=== PATIENT | female | born 1970 | race African-American/Black ===

== ENCOUNTER 2021-08-19 10:25 | Outpatient (REF) | payer OTHER, SELFPAY ==
[2021-08-19 13:12] LABS: Basophils Percent Auto 0.4 % (0-2); Eosinophils Absolute Auto 0.1 X10*3/uL (0.0-0.4); Eosinophils Percent Auto 1.1 % (0-4); Hematocrit 42.3 % (37.0-47.0); Hemoglobin 13.1 g/dl (12.0-16.0); Imm Gran Abs Auto 0.01 X10*3/uL (0.00-0.03); Imm Gran Pct Auto 0.1 % (0.0-0.4); Lymphocytes Absolute Auto 2.4 X10*3/uL (1.2-4.9); Lymphocytes Percent Auto 34.4 % (20-40); MANUAL DIFF FLAG NO; Mean Corpuscular Hemoglobin 25.9 pg (27.0-33.0); Mean Corpuscular Volume 83.6 fL (80.0-98.0); Mean Platelet Volume 10.4 fL (9.4-12.3); Monocytes Absolute Auto 0.8 X10*3/uL (0.1-1.2); Monocytes Percent Auto 10.9 % (2-11); Neutrophils Absolute Auto 3.7 x10*3/uL (2.0-8.3); Neutrophils Percent Auto 53.1 % (45-73); Platelet Count 366 X10*3/uL (160-400); Red Blood Count 5.06 X10*6/uL (4.20-5.50); Red Cell Distribution Width 19.8 % (11.0-16.0)
[2021-08-19 13:43] LABS: Estimated Average Glucose 117 mg/dL; Hemoglobin A1c % 5.7 %
[2021-08-19 13:45] LABS: Alanine Aminotransferase 29 U/L (0-31); Albumin Level 4.2 g/dL (3.5-5.0); Alkaline Phosphatase 195 U/L (39-117); Anion Gap 14 (12-20); Aspartate Amino Transferase 23 U/L (5-31); Bilirubin Total 0.7 mg/dL (0.0-1.0); Blood Urea Nitrogen 13 mg/dL (9-16); C Reactive Protein 1.42 mg/dL (< or = 0.50); Calcium 9.8 mg/dL (8.4-10.2); Carbon Dioxide 25 mmol/L (22-29); Chloride 108 mmol/L (96-108); Cholesterol 150 mg/dL; Estimated Glomerular Filt Rate > 60; Glucose Random 94 mg/dL (60-115); HDL Cholesterol 45 mg/dL; Iron 31 mcg/dL (30-160); LDL Cholesterol Calculated 85 mg/dl; Percent Iron Saturation 6 % (15-50); Potassium 4.6 mmol/L (3.3-5.1); Sodium 142 mmol/L (135-145); Total Iron Binding Capacity 519 mcg/dL (228-428); Triglycerides 101 mg/dL; Unsaturated Iron Binding 488 ug/dL
[2021-08-19 14:08] LABS: TSH reflex Free T4 1.09 uIU/mL (0.32-4.0); Vitamin D 25-OH Total 10.6 ng/mL (>30)
[2021-08-19 14:18] LABS: Folate 15.6 ng/mL (> or = 4.0); Vitamin B12 312 pg/mL (200-900)
[2021-08-19 15:03] LABS: Ferritin 32 ng/mL (10-250); Insulin 9 uU/mL (2-29)
[2021-08-20 13:07] LABS: Calcium (PTHI) 9.5 mg/dL (8.6-10.4); PTHI 66 pg/mL (14-64)
[2021-08-21 13:30] LABS: Zinc 85 mcg/dL (60-130)
[2021-08-24 12:36] LABS: Vitamin A 35 mcg/dL (38-98)
[2021-08-25 16:01] LABS: Vitamin B1 15 nmol/L (8-30)
== END 2021-08-19 10:26 | disposition home or self-care (01) ==
LOC: HO.LAB 10:25
PROVIDERS: PCP Internal Medicine; Referring Provider Internal Medicine; Visit Provider Physician Assistant
DX: E66.01 Morbid (severe) obesity due to excess calories (principal); F17.210 Nicotine dependence, cigarettes, uncomplicated; G47.33 Obstructive sleep apnea (adult) (pediatric); E03.9 Hypothyroidism, unspecified; J43.9 Emphysema, unspecified; J45.909 Unspecified asthma, uncomplicated; E11.9 Type 2 diabetes mellitus without complications; F41.9 Anxiety disorder, unspecified; F32.A Depression, unspecified; I95.9 Hypotension, unspecified; Z71.3 Dietary counseling and surveillance; Z79.899 Other long term (current) drug therapy; Z98.84 Bariatric surgery status
CPT/HCPCS: 36415; 80053; 80061; 82306; 82607; 82728; 82746; 83036; 83525; 83540; 83970; 84425; 84443; 84590; 84630; 85025; 86140; 99202

== ENCOUNTER 2021-09-23 10:08 | Outpatient (REF) | payer OTHER, SELFPAY ==
[2021-09-25 15:41] LABS: H Pylori Breath Test Negative (Negative)
== END 2021-09-23 10:09 | disposition home or self-care (01) ==
LOC: HO.LNP 10:08
PROVIDERS: PCP Internal Medicine; Referring Provider Internal Medicine; Visit Provider Physician Assistant
DX: E66.01 Morbid (severe) obesity due to excess calories (principal); Z68.41 Body mass index [BMI] 40.0-44.9, adult; F17.210 Nicotine dependence, cigarettes, uncomplicated; Z98.84 Bariatric surgery status; Z11.0 Encounter for screening for intestinal infectious diseases
CPT/HCPCS: 83013; 99211; 99212

== ENCOUNTER → 2021-10-05 08:06 | Outpatient (BNVA) | payer OTHER, SELFPAY | PROVIDERS: PCP Internal Medicine; Visit Provider Dietitian, Registered | DX: E66.01 Morbid (severe) obesity due to excess calories (principal); E11.9 Type 2 diabetes mellitus without complications | CPT/HCPCS: 97802 ==

== ENCOUNTER → 2021-10-16 08:14 | Outpatient (BNVA) | payer OTHER, SELFPAY | PROVIDERS: PCP Internal Medicine; Visit Provider Physician Assistant | DX: Z98.84 Bariatric surgery status (principal); Z01.818 Encounter for other preprocedural examination ==

== ENCOUNTER → 2021-10-21 08:06 | Outpatient (BNVA) | payer OTHER, SELFPAY | PROVIDERS: PCP Internal Medicine; Visit Provider Physician Assistant | DX: Z13.89 Encounter for screening for other disorder (principal) ==

== ENCOUNTER → 2021-11-02 08:18 | Outpatient (BNVA) | payer OTHER, SELFPAY | PROVIDERS: PCP Internal Medicine; Referring Provider Physician Assistant; Visit Provider Dietitian, Registered | DX: E66.9 Obesity, unspecified (principal) | CPT/HCPCS: 97803 ==

== ENCOUNTER → 2022-02-04 10:00 | Outpatient (BNVA) | payer OTHER, SELFPAY | PROVIDERS: PCP Internal Medicine; Visit Provider Physician Assistant | DX: E66.01 Morbid (severe) obesity due to excess calories (principal); Z98.84 Bariatric surgery status; J44.9 Chronic obstructive pulmonary disease, unspecified; F17.210 Nicotine dependence, cigarettes, uncomplicated | CPT/HCPCS: Q3014 ==

== ENCOUNTER 2022-06-10 08:36 | Outpatient (REF) | payer OTHER, SELFPAY ==
--- NOTE | ~2022-06-10 | XR_ITS ---
EXAMINATION: XR CHEST CLINICAL INFORMATION: Bariatric surgery COMPARISON: None TECHNIQUE: 2 views of the chest were obtained. FINDINGS: The cardiac and mediastinal contours are normal. The lungs are clear. There is no pleural effusion or pneumothorax for mild degenerative changes of the thoracic spine. There is a spinal stimulator in the thoracic spinal canal. XR/XR chest 2V IMPRESSION: No evidence for acute disease in the chest.
--- NOTE | 2022-06-10 08:42 | ECG_ITS ---
Test Reason : bariatric surg Blood Pressure : / mmHG Vent. Rate : 077 BPM Atrial Rate : 077 BPM P-R Int : 160 ms QRS Dur : 082 ms QT Int : 408 ms P-R-T Axes : 077 023 032 degrees QTc Int : 461 ms Normal sinus rhythm RSR' or QR pattern in V1 suggests right ventricular conduction delay Otherwise normal ECG No previous ECGs available Referred By: Erica Waite Electronically Signed By:HERBERT ALFARO MD
== END 2022-06-10 08:37 | disposition home or self-care (01) ==
LOC: HO.XRAY 08:36
PROVIDERS: PCP Internal Medicine; Visit Provider Physician Assistant
DX: Z98.84 Bariatric surgery status (principal); Z01.818 Encounter for other preprocedural examination
CPT/HCPCS: 71046; 93005

== ENCOUNTER → 2022-06-28 08:46 | Outpatient (REF) | payer OTHER, SELFPAY ==
--- NOTE | 2022-06-28 08:49 | CA_ITS ---
Acquisition Time: 2022-06-28 10:06:05 Total Exercise Time: 00:04:40 Test Indications: Pre Op, ABN EKG, SOB Medications: See H Protocol: ELBA Max HR: 134 BPM 79% of Pred: 169 BPM Max BP: 178/078 mmHG Max Work Load: 4.6 METS Exercise stress test with exercise 4 min 40 sec of Elba stage 1, achieving 79% MPHR, 4.6 METs, with moderate shortness of breath and fatigue with request to stop, without chest discomfort, with isolated PAC and PVC, with normotensive response to exercise, with nondiagnostic EKG for ischemia due to suboptimal heart rate however no ischemia noted at acheived workload. If further evaluation for ischemia is needed then recommend a pharmacological nuclear stress test. Test reviewed with Dr Veloz. Referred By: Erica Waite Overread By: SHAUN MIRANDA
== END ==
LOC: HO.CARD 08:46
PROVIDERS: Visit Provider Physician Assistant
DX: E03.9 Hypothyroidism, unspecified (principal); E11.9 Type 2 diabetes mellitus without complications; G47.33 Obstructive sleep apnea (adult) (pediatric); E66.01 Morbid (severe) obesity due to excess calories; J44.9 Chronic obstructive pulmonary disease, unspecified; R94.31 Abnormal electrocardiogram [ECG] [EKG]
CPT/HCPCS: 93017

== ENCOUNTER → 2022-08-06 10:41 | Outpatient (BNVA) | payer OTHER, SELFPAY | PROVIDERS: PCP Internal Medicine; Referring Provider Internal Medicine; Visit Provider Physician Assistant | DX: E66.01 Morbid (severe) obesity due to excess calories (principal); Z68.41 Body mass index [BMI] 40.0-44.9, adult; Z98.84 Bariatric surgery status | CPT/HCPCS: 99212 ==

== ENCOUNTER → 2022-09-08 12:46 | Outpatient (BNVA) | payer OTHER, SELFPAY | PROVIDERS: PCP Internal Medicine; Visit Provider Physician Assistant | DX: E66.01 Morbid (severe) obesity due to excess calories (principal); Z68.41 Body mass index [BMI] 40.0-44.9, adult; J44.9 Chronic obstructive pulmonary disease, unspecified; Z98.84 Bariatric surgery status; Z99.81 Dependence on supplemental oxygen | CPT/HCPCS: 99212; Q3014 ==

== ENCOUNTER → 2022-09-23 08:40 | Outpatient (BNVA) | payer OTHER, SELFPAY | PROVIDERS: PCP Internal Medicine; Visit Provider Dietitian, Registered | DX: E66.01 Morbid (severe) obesity due to excess calories (principal); Z68.41 Body mass index [BMI] 40.0-44.9, adult | CPT/HCPCS: 97803 ==

== ENCOUNTER 2022-10-06 09:01 | Outpatient (REF) | payer OTHER, SELFPAY ==
--- NOTE | ~2022-10-06 | US_ITS ---
EXAMINATION: US COMPLETE ABDOMEN WITH LIVER ELASTOGRAPHY CLINICAL INFORMATION: Obesity COMPARISON: None. TECHNIQUE: Real-time imaging of the abdominal viscera. Noninvasive ultrasound liver fibrosis assessment is performed using Katelyn ElastPQ point quantification shear wave elastography (2D-SWE) with a C5-2 MHz transducer. Multiple elastography samples are obtained. FINDINGS: PANCREAS: Normal. ABDOMINAL AORTA: The proximal and mid abdominal aorta are normal in caliber. Distal abdominal aorta is not well visualized due to bowel gas. INFERIOR VENA CAVA: Visualized portions are normal. LIVER: Liver echotexture is slightly increased. The liver is enlarged. The liver contour is normal. There is intrahepatic biliary duct dilatation. No focal liver lesion. The right lobe measures 20 cm in length. The left lobe measures 12 cm in length. Portal flow is normal/hepatopedal. The main portal vein is minimally enlarged measuring 1.7 cm. Shear wave liver elastography median stiffness is 1.28 m/s (reference: normal median stiffness is 1.3 m/s or less). IQR/median stiffness to assess sampling precision is 0.8 (reference: good quality data set is IQR/median stiffness of 0.15 or less). GALLBLADDER: Surgically removed COMMON BILE DUCT: Dilated measuring 1.8 cm in diameter. Left KIDNEY: 2 mm stone in the midpole. No hydronephrosis. . The kidney measures 11 cm in maximum dimension. Right KIDNEY: Normal. No hydronephrosis. No renal calculi or focal parenchymal lesions. The kidney measures 11 cm in maximum dimension. SPLEEN: Normal. The spleen measures 7.2 cm in maximum dimension. FREE FLUID: None. US/US abdomen comp w elastography IMPRESSION: 1. Impression: Enlarged echogenic liver. Intra and extrahepatic biliary duct dilatation. The common bile duct measures 1.8 cm. Post cholecystectomy. Biliary duct dilatation is greater than usually seen post cholecystectomy. Follow-up MR with MRCP should be considered. Small left renal stone. Limited visualization of the distal abdominal aorta. 2. Liver elastography: Normal. adequate liver sampling. REFERENCE: Society of Radiologists in Ultrasound Liver Stiffness Thresholds (2019): LIVER STIFFNESS THRESHOLDS: *Liver Stiffness equal or less than 1.3 m/s: High probability of being normal. *Liver Stiffness less than 1.7 m/s: In the absence of other known clinical signs, rules out compensated advanced chronic liver disease. *Liver Stiffness 1.7-2.1 m/s: Suggestive of compensated advanced chronic liver disease but need further test for confirmation. *Liver Stiffness over 2.1 m/s: Rules in compensated advanced chronic liver disease. *Liver Stiffness over 2.4 m/s: Suggestive of clinically significant portal hypertension. QUALITY OF DATA SET: *IQR/Median value equal or less than 0.15 implies a quality data set. *IQR/Median value over 0.15 implies a poor quality data set. SIGNIFICANT CHANGE FROM PRIOR EXAM: Significant change if liver stiffness measurement is 10% or greater from prior exam. OTHER CONSIDERATIONS: The stage of liver fibrosis may be overestimated in the setting of acute hepatitis, liver inflammation, elevated liver function tests, hepatic vascular congestion, obstructive cholestasis, non-fasting state, and infiltrative diseases such as amyloidosis and lymphoma. In some patients with NAFLD, the liver stiffness thresholds for compensated advanced chronic liver disease may be lower. In causes other than viral hepatitis and NAFLD, liver stiffness thresholds are not well established.
== END 2022-10-06 09:02 | disposition home or self-care (01) ==
LOC: HO.US 09:01
PROVIDERS: Visit Provider Physician Assistant
DX: Z01.818 Encounter for other preprocedural examination (principal); E66.9 Obesity, unspecified; K21.9 Gastro-esophageal reflux disease without esophagitis
CPT/HCPCS: 76705; 76981

== ENCOUNTER → 2022-10-14 12:00 | Outpatient (BNVA) | payer OTHER, SELFPAY | PROVIDERS: PCP Internal Medicine; Visit Provider Counselor Mental Health | DX: F43.10 Post-traumatic stress disorder, unspecified (principal); F50.81 Binge eating disorder; E66.01 Morbid (severe) obesity due to excess calories; Z98.84 Bariatric surgery status | CPT/HCPCS: 90791 ==

== ENCOUNTER → 2022-10-18 09:20 | Outpatient (BNVA) | payer OTHER, SELFPAY | PROVIDERS: PCP Internal Medicine; Referring Provider Internal Medicine; Visit Provider Physician Assistant | DX: E66.01 Morbid (severe) obesity due to excess calories (principal); Z68.41 Body mass index [BMI] 40.0-44.9, adult; Z98.84 Bariatric surgery status | CPT/HCPCS: 99212 ==

== ENCOUNTER 2022-11-01 09:48 | Outpatient (REF) | payer OTHER, SELFPAY ==
--- NOTE | ~2022-11-01 | FL_ITS ---
EXAMINATION: XR FLUOROSCOPY UPPER GI WITH AIR CLINICAL INFORMATION: Obesity COMPARISON: None TECHNIQUE: Routine upper GI air-contrast study was performed in upright and lying position. FINDINGS: Following oral administration of thick barium and effervescent granules there is normal probation bolus from the oral cavity through the pharynx, esophagus into stomach without any evidence of obstruction, narrowing or stricture. The course, caliber and peristalsis of stomach and the duodenal bulb is normal. On placing patient supine there is gastric bypass surgical changes with a small stomach. The gastroduodenal digital anastomosis is widely patent with spontaneous passage of contrast into the small bowel. There is moderate gastroesophageal reflux visualized. Incidental noted is made of posterior spinal epidural electrodes FLUOROSCOPY TIME: 2.4 minutes DOSE AREA PRODUCT: 56.807 uGy-m2 (microgray-meter squared) FL/FL upper GI w air IMPRESSION: Unremarkable upper GI air-contrast study.
== END 2022-11-01 09:49 | disposition home or self-care (01) ==
LOC: HO.XRAY 09:48
PROVIDERS: PCP Internal Medicine; Visit Provider Physician Assistant
DX: Z01.818 Encounter for other preprocedural examination (principal); E66.9 Obesity, unspecified; K21.9 Gastro-esophageal reflux disease without esophagitis
CPT/HCPCS: 74246

== ENCOUNTER → 2022-12-23 09:07 | Outpatient (BNVA) | payer OTHER, SELFPAY | PROVIDERS: PCP Internal Medicine; Visit Provider Physician Assistant | DX: E66.01 Morbid (severe) obesity due to excess calories (principal); E03.9 Hypothyroidism, unspecified; E11.9 Type 2 diabetes mellitus without complications; G47.33 Obstructive sleep apnea (adult) (pediatric); J44.9 Chronic obstructive pulmonary disease, unspecified; F17.210 Nicotine dependence, cigarettes, uncomplicated; Z98.84 Bariatric surgery status; Z68.41 Body mass index [BMI] 40.0-44.9, adult | CPT/HCPCS: 99212 ==

== ENCOUNTER → 2023-01-11 10:30 | Outpatient (BNVA) | payer OTHER, SELFPAY | PROVIDERS: PCP Internal Medicine; Visit Provider Counselor Mental Health ==

== ENCOUNTER → 2023-01-14 08:57 | Outpatient (BNVA) | payer OTHER, SELFPAY | PROVIDERS: PCP Internal Medicine; Referring Provider Internal Medicine; Visit Provider Physician Assistant | DX: E66.01 Morbid (severe) obesity due to excess calories (principal); G47.33 Obstructive sleep apnea (adult) (pediatric); J44.9 Chronic obstructive pulmonary disease, unspecified; J43.9 Emphysema, unspecified; E11.9 Type 2 diabetes mellitus without complications; F17.210 Nicotine dependence, cigarettes, uncomplicated; Z98.84 Bariatric surgery status; Z68.41 Body mass index [BMI] 40.0-44.9, adult | CPT/HCPCS: 99212 ==

== ENCOUNTER → 2023-02-15 08:58 | Outpatient (BNVA) | payer OTHER, SELFPAY | PROVIDERS: Visit Provider Dietitian, Registered | DX: E66.9 Obesity, unspecified (principal); Z71.3 Dietary counseling and surveillance | CPT/HCPCS: 97803 ==

== ENCOUNTER 2023-03-01 09:54 | Outpatient (AMB) | payer OTHER, SELFPAY ==
--- NOTE | 2023-03-01 10:06 | MHC.OFFVISWM ---
Intake VS Expanded 03/01/23 10:08 Height 5 ft 3 in Weight 218 lb BMI 38.6 BP 104/56 L Blood Pressure Location Rt brachial Blood Pressure Position Sitting Pulse 80 Pulse Source Pulse Oximeter Temp 97.3 F Temperature Source Temporal Artery Scan Pulse Oximetry 95 Oxygen Delivery Method Room Air Body Fat 103.6 Body Fat Percentage 47.6 Free Fat Mass 114.2 Muscle Mass 108.4 Visceral Mass 14.0 Water Mass 81.4 BMR 1,619 Intake Visit Reasons: (OV) F/U SWL Allergies NSAIDS (Non-Steroidal Anti-Inflamma Adverse Reaction (Severe, Verified 03/01/23 10:09) intestinal upset Medication List - Last Reconciled 03/01/23 by Erica Waite PA-C albuterol sulfate 90 mcg/actuation 2 puffs inhalation Q4-6H PRN apixaban (Eliquis) 2.5 mg PO BID doxepin 150 mg PO BEDTIME food supplemt, lactose-reduced (Ensure High Protein oral liquid) 1 ea PO TID hydrochlorothiazide 12.5 mg PO DAILY hydrocortisone 10 mg PO TID hydroxyzine HCl 100 mg PO TID levocetirizine 5 mg PO DAILY levothyroxine 50 mcg PO DAILY nicotine (Nicoderm CQ) 1 patch transdermal DAILY olanzapine 10 mg PO BID Oxygen Home Use As directed roflumilast (Daliresp) 500 mcg PO DAILY semaglutide (Ozempic) 0.25 mg subcut QWEEK tizanidine 2 mg PO TID PRN zolpidem (Ambien) 10 mg PO BEDTIME PRN HPI HPI Comments History of Present Illness Details SWL follow up, [employer] appt August 2021 at 235.8 lbs. Last seen on 01/14/23. TBWL so far is 17.8 lbs or 7.5%. Had dental work done on February 17 and can not eat solids now, has follow up with dentist on March 10. Will be getting implants. pre -operative work up completed. Meal plan now - 3 shakes and 2 yougrts per day. Exercise - 3d/week - pulmonary rehab. 2d/wk - does [employer] or LS 2 mile videos. Has been feeling dizzy lately, low BP today Tobacco - no cigarettes for last 2 days [facility] Medical History (Updated 05/04/23 @ 09:54 by Erica Waite PA-C) Sudden adrenal gland insufficiency Surgical History (Updated 03/01/23 @ 10:11 by ALESSIO Munson) History of dental surgery Hx of arthroscopic knee surgery Hx of colonoscopy Hx of endoscopy Hx of gastric bypass Hx of oral surgery Hx of spinal fusion Hx of spinal surgery Hx of tonsillectomy Family History Mother Cancer Anemia Dumping syndrome Father No problems noted. Sister Cancer Daughter Morbid obesity Chronic mental illness Daughter Chronic mental illness Daughter Chronic mental illness Daughter Chronic mental illness Son Chronic mental illness Social History Alcohol intake: former Patient Tobacco Use Status: Former Tobacco user Physical Exam Vital Signs: Last Vital Signs Temp 97.3 F 03/01/23 10:08 Pulse 80 03/01/23 10:08 BP 104/56 L 03/01/23 10:08 Pulse Ox 95 03/01/23 10:08 Oxygen Delivery Method Room Air 03/01/23 10:08 BMI result Body Mass Index 38.6 Assessment & Plan Assessment & Plan (1) Morbid obesity: Code(s): E66.01 - Morbid (severe) obesity due to excess calories Plan: 52 yo woman s/p KARINE has been in our program for 1.5 years. She is now losing weight effectively with 17.8 lbs or 7.5% TBWL. She will continue her diet of shakes and bars only due to dental work in progress. She will need to have this completely taken care of before revision bariatric surgery. She will need clearance from Dr Jin. Will continue her exercise plan as is also. I told her to stop her HCTZ due to dizziness and low BP, check BP at home and call her PCP this week. Hopefully, she will continue with smoking cessation. Next appt with me in mid March. Patient is obese and is not considered stable at this time. I spent 25 minutes in total with patient reviewing/updating records, examining the patient and counseling the patient on weight management as detailed above. (2) S/P gastric bypass: Comment: January 2006 at [facility] Code(s): Z98.84 - Bariatric surgery status (3) Obstructive sleep apnea: Code(s): G47.33 - Obstructive sleep apnea (adult) (pediatric) (4) Diabetes mellitus: Code(s): E11.9 - Type 2 diabetes mellitus without complications (5) Tobacco smoker, 1 pack of cigarettes or less per day: Code(s): F17.210 - Nicotine dependence, cigarettes, uncomplicated Coding Level of Care Code Est Pt Level 4 (77518) Diagnoses Morbid obesity E66.01 S/P gastric bypass Z98.84 Obstructive sleep apnea G47.33 Diabetes mellitus E11.9 Tobacco smoker, 1 pack of cigarettes or less per day F17.210
[2023-03-01 10:08] VITALS: BP 104/56; PULSE 80; TEMP 36.3; O2SAT 95; BMI 38.6
== END 2023-03-01 10:42 | disposition home or self-care (01) ==
PROVIDERS: Visit Provider Physician Assistant
DX: E66.01 Morbid (severe) obesity due to excess calories (principal); Z68.38 Body mass index [BMI] 38.0-38.9, adult; Z98.84 Bariatric surgery status; E11.9 Type 2 diabetes mellitus without complications; G47.33 Obstructive sleep apnea (adult) (pediatric); F17.210 Nicotine dependence, cigarettes, uncomplicated
CPT/HCPCS: 99214

== ENCOUNTER → 2023-03-01 09:54 | Outpatient (BNVA) | payer OTHER, SELFPAY | PROVIDERS: Visit Provider Physician Assistant | DX: E66.01 Morbid (severe) obesity due to excess calories (principal); Z68.38 Body mass index [BMI] 38.0-38.9, adult; G47.33 Obstructive sleep apnea (adult) (pediatric); E11.9 Type 2 diabetes mellitus without complications; F17.210 Nicotine dependence, cigarettes, uncomplicated; Z98.84 Bariatric surgery status | CPT/HCPCS: 99212 ==

== ENCOUNTER → 2023-04-22 10:53 | Outpatient (BNVA) | payer OTHER, SELFPAY | PROVIDERS: PCP Internal Medicine; Visit Provider Physician Assistant | DX: E66.01 Morbid (severe) obesity due to excess calories (principal); G47.33 Obstructive sleep apnea (adult) (pediatric); J44.9 Chronic obstructive pulmonary disease, unspecified; J43.9 Emphysema, unspecified; E03.9 Hypothyroidism, unspecified; E27.40 Unspecified adrenocortical insufficiency; F17.210 Nicotine dependence, cigarettes, uncomplicated; Z68.37 Body mass index [BMI] 37.0-37.9, adult; Z98.84 Bariatric surgery status | CPT/HCPCS: 99212 ==

== ENCOUNTER 2023-04-22 10:55 | Outpatient (AMB) | payer OTHER, SELFPAY ==
--- NOTE | 2023-04-22 11:12 | A.OFFVIS_ITS ---
Intake VS Expanded 04/22/23 11:27 Height 5 ft 3 in Weight 211 lb 3.2 oz BMI 37.4 BP 123/62 Blood Pressure Location Rt brachial Blood Pressure Position Sitting Pulse 70 Pulse Source Pulse Oximeter Temp 97.1 F Temperature Source Tympanic Pulse Oximetry 93 Oxygen Delivery Method Room Air Body Fat 93.6 Body Fat Percentage 44.4 Free Fat Mass 117.2 Muscle Mass 111.4 Visceral Mass 12.0 Water Mass 83.6 BMR 1,640 Intake Visit Reasons: (OV) F/U SWL Allergies NSAIDS (Non-Steroidal Anti-Inflamma Adverse Reaction (Severe, Verified 04/22/23 11:19) intestinal upset Medication List - Last Reconciled 04/22/23 by Erica Waite PA-C albuterol sulfate 90 mcg/actuation 2 puffs inhalation Q4-6H PRN doxepin 150 mg PO BEDTIME food supplemt, lactose-reduced (Ensure High Protein oral liquid) 1 ea PO TID hydrocortisone 10 mg PO TID hydroxyzine HCl 100 mg PO TID levocetirizine 5 mg PO DAILY levothyroxine 50 mcg PO DAILY lurasidone (Latuda) 3 mg PO DAILY nicotine (Nicoderm CQ) 1 patch transdermal DAILY olanzapine 10 mg PO BID Oxygen Home Use As directed roflumilast (Daliresp) 500 mcg PO DAILY semaglutide (Ozempic) 0.25 mg subcut QWEEK tizanidine 2 mg PO TID PRN HPI HPI Comments History of Present Illness Details SWL follow up for revision of previous GBP, [employer] appt August 2021 at 235.8 lbs. Last seen on 03/01/23. TBWL so far is 24.6lbs or 10.4%. Had dental work done on February 17 and can not eat solids now, Will be getting upper dentures with in a few weeks. Still on liquid diet with yogurt due to dental work. Stopped HCTZ with last appt due to symptomatic low BP. Pre -operative work up completed, needs review from Dr Melendez Exercise - gym 2d/ week, treadmill x 25 minutes, speed 1.9, no incline- noguera calories burned ?, bike for 10 minutes Meal plan - shakes 7am/1pm/5pm and yogurt at 3pm and 8 pm. Cigarettes - still 3 cig/day. Will start nicotine patch today - and today is her quit day! [facility] Medical History (Updated 04/22/23 @ 11:31 by Erica Waite PA-C) Sudden adrenal gland insufficiency Surgical History (Updated 03/01/23 @ 10:11 by ALESSIO Munson) History of dental surgery Hx of arthroscopic knee surgery Hx of colonoscopy Hx of endoscopy Hx of gastric bypass Hx of oral surgery Hx of spinal fusion Hx of spinal surgery Hx of tonsillectomy Family History Mother Cancer Anemia Dumping syndrome Father No problems noted. Sister Cancer Daughter Morbid obesity Chronic mental illness Daughter Chronic mental illness Daughter Chronic mental illness Daughter Chronic mental illness Son Chronic mental illness Social History Alcohol intake: former Patient Tobacco Use Status: Former Tobacco user Physical Exam Vital Signs: Last Vital Signs Temp 97.1 F 04/22/23 11:27 Pulse 70 04/22/23 11:27 BP 123/62 04/22/23 11:27 Pulse Ox 93 04/22/23 11:27 Oxygen Delivery Method Room Air 04/22/23 11:27 BMI result Body Mass Index 37.4 Assessment & Plan Assessment & Plan (1) Morbid obesity: Code(s): E66.01 - Morbid (severe) obesity due to excess calories Plan: Pt has now lost 24.6 lbs or 10.4% TBWL over past 1.5 years in preparation for revision of GBP. She will increase her exercise plan to treadmill and bike 3d/ this week, then 4 d/ week. Speed 2.5, incline 1-4 for 300 calories including bike. No change to meal plan. Will need confirmation of smoking cessation - urine continine will be ordered with next appt. Noa harrist now, me in 3 weeks. Will send information to Dr Jin for review. Patient is morbidly and is not considered stable at this time. I spent 30 minutes in total with patient reviewing/updating records, examining the patient and counseling the patient on weight management as detailed above. (2) S/P gastric bypass: Comment: January 2006 at [facility] Code(s): Z98.84 - Bariatric surgery status (3) Obstructive sleep apnea: Code(s): G47.33 - Obstructive sleep apnea (adult) (pediatric) (4) COPD (chronic obstructive pulmonary disease): Code(s): J44.9 - Chronic obstructive pulmonary disease, unspecified (5) Emphysema lung: Code(s): J43.9 - Emphysema, unspecified (6) Tobacco smoker, 1 pack of cigarettes or less per day: Code(s): F17.210 - Nicotine dependence, cigarettes, uncomplicated (7) Sudden adrenal gland insufficiency: Code(s): E27.40 - Unspecified adrenocortical insufficiency (8) Hypothyroid: Code(s): E03.9 - Hypothyroidism, unspecified Coding Level of Care Code Est Pt Level 4 (18635) Diagnoses Morbid obesity E66.01 S/P gastric bypass Z98.84 Obstructive sleep apnea G47.33 COPD (chronic obstructive pulmonary disease) J44.9 Emphysema lung J43.9 Tobacco smoker, 1 pack of cigarettes or less per day F17.210 Sudden adrenal gland insufficiency E27.40 Hypothyroid E03.9
[2023-04-22 11:27] VITALS: BP 123/62; PULSE 70; TEMP 36.2; O2SAT 93; BMI 37.4
== END 2023-04-22 11:49 | disposition home or self-care (01) ==
PROVIDERS: PCP Internal Medicine; Visit Provider Physician Assistant
DX: E66.01 Morbid (severe) obesity due to excess calories (principal); Z98.84 Bariatric surgery status; G47.33 Obstructive sleep apnea (adult) (pediatric); J44.9 Chronic obstructive pulmonary disease, unspecified; J43.9 Emphysema, unspecified; F17.210 Nicotine dependence, cigarettes, uncomplicated; E27.40 Unspecified adrenocortical insufficiency; E03.9 Hypothyroidism, unspecified
CPT/HCPCS: 99214

== ENCOUNTER 2023-05-11 08:06 | Outpatient (AMB) | payer OTHER, SELFPAY ==
--- NOTE | 2023-05-11 11:31 | MHC.OFFVISWM ---
Intake VS Expanded 05/11/23 13:27 Height 5 ft 3 in Weight 210 lb 3 oz BMI 37.2 Body Fat 66.8 Body Fat Percentage 31.8 Free Fat Mass 143.4 Visceral Mass 18 Water Mass 98.4 BMR 1,780 Intake Visit Reasons: TV Consult/Transfer Erica Allergies NSAIDS (Non-Steroidal Anti-Inflamma Adverse Reaction (Severe, Verified 05/11/23 11:31) intestinal upset Medication List - Last Reconciled 05/11/23 by Rodrigo Reyes MD albuterol sulfate 90 mcg/actuation 2 puffs inhalation Q4-6H PRN cholecalciferol (vitamin D3) 125 mcg PO DAILY doxepin 150 mg PO BEDTIME food supplemt, lactose-reduced (Ensure High Protein oral liquid) 1 ea PO TID hydrocortisone 10 mg PO TID hydroxyzine HCl 100 mg PO TID iron,carbonyl-vitamin C 65 mg iron- 125 mg (Vitron-C) 1 tab PO DAILY levocetirizine 5 mg PO DAILY levothyroxine 50 mcg PO DAILY lurasidone (Latuda) 3 mg PO DAILY mecobalamin (vitamin B12) 1,000 mcg sublingual DAILY nicotine (Nicoderm CQ) 1 patch transdermal DAILY olanzapine 10 mg PO BID Oxygen Home Use As directed roflumilast (Daliresp) 500 mcg PO DAILY semaglutide (Ozempic) 0.25 mg subcut QWEEK tizanidine 2 mg PO TID PRN vitamin A palmitate 10,000 units PO DAILY HPI TV Consult/Transfer Erica HPI Details Start time: 11.34am, End time: 12.34pm ?I spent 45 minutes speaking with the patient on the phone plus an additional 15 minutes reviewing and updating records for a total of 60 minutes HPI Comments History of Present Illness Details Overall weight loss: 25.5lbs, or 10.8% TBWL Is doing 3 Ensure HP protein shakes, 2 HP Arabic yogurt (15gr) Exercise: is doing Gym x4/wk, doing the bike for 300 calories or the treadmill for 300 calories PFSH Medical History (Updated 05/11/23 @ 11:44 by Rodrigo Reyes MD) DJD (degenerative joint disease) Sleep apnea treated with continuous positive airway pressure (CPAP) Sudden adrenal gland insufficiency Surgical History (Updated 05/11/23 @ 11:44 by Rodrigo Reyes MD) History of thyroidectomy History of dental surgery Hx of tonsillectomy Hx of arthroscopic knee surgery Hx of spinal surgery Hx of spinal fusion Hx of gastric bypass Hx of endoscopy Hx of colonoscopy Hx of oral surgery Family History Mother Cancer Anemia Dumping syndrome Father No problems noted. Sister Cancer Daughter Morbid obesity Chronic mental illness Daughter Chronic mental illness Daughter Chronic mental illness Daughter Chronic mental illness Son Chronic mental illness Social History Alcohol intake: former Patient Tobacco Use Status: Former Tobacco user Assessment & Plan Assessment & Plan (1) Diabetes mellitus: Code(s): E11.9 - Type 2 diabetes mellitus without complications (2) Anxiety and depression: Code(s): F41.9 - Anxiety disorder, unspecified; F32.A - Depression, unspecified (3) Asthma: Code(s): J45.909 - Unspecified asthma, uncomplicated (4) COPD (chronic obstructive pulmonary disease): Code(s): J44.9 - Chronic obstructive pulmonary disease, unspecified (5) Hypothyroid: Code(s): E03.9 - Hypothyroidism, unspecified (6) S/P gastric bypass: Comment: January 2006 at [facility] Code(s): Z98.84 - Bariatric surgery status (7) Obesity: Code(s): E66.9 - Obesity, unspecified (8) BMI 37.0-37.9, adult: Code(s): Z68.37 - Body mass index [BMI] 37.0-37.9, adult Plan: 1. Plan for sleeve resection of the gastric pouch. Before that and endoscopy will be done to assess the pouch anatomy as well as to rule out any ulcers due to the history of smoking and use of oral steroids. Risks for perforation and bleeding were discussed with patient. She is in agreement with the plan 2. Continue same nutritional plan of 3 Ensure HP protein shakes, 2 HP Arabic yogurt (15gr) 3. Exercise: continue Gym x4 days/week, doing the bike for 300 calories or the treadmill for 300 calories 4. Send me weight measurements weekly on Tuesdays Medications: New cholecalciferol (vitamin D3) 125 mcg PO DAILY 30 caps 2RF E55.9 - Vitamin D deficiency, unspecified mecobalamin (vitamin B12) place tablet under tongue and allow to dissolve for at least30 secs before swallowing 1,000 mcg sublingual DAILY 30 tabs 2RF E53.8 - Deficiency of other specified B group vitamins iron,carbonyl-vitamin C 65 mg iron- 125 mg (Vitron-C) swallow whole; do not chew/break/dissolve/open 1 tab PO DAILY 30 tabs 2RF E61.1 - Iron deficiency vitamin A palmitate 10,000 units PO DAILY 30 caps 1RF E50.9 - Vitamin A deficiency, unspecified Telehealth Telehealth Location of provider rendering services: practice address Location of patient: address on file Patient Identification confirmed using: Name, : Yes Telehealth method: voice only Patient verbally consented to treatment: Yes Patient verbally consented to billing insurance company: Yes Patient informed of any privacy concerns related to visit: Yes Minutes spent on Phone/Video with Pt.: 60 Coding Level of Care Code Tele Est Pt Level 5 (43114) Diagnoses Diabetes mellitus E11.9 Anxiety and depression F41.9; F32.A Asthma J45.909 COPD (chronic obstructive pulmonary disease) J44.9 Hypothyroid E03.9 S/P gastric bypass Z98.84 Obesity E66.9 BMI 37.0-37.9, adult Z68.37 Time Spent (min) 60
[2023-05-11 13:27] VITALS: BMI 37.2
== END 2023-05-11 13:37 | disposition home or self-care (01) ==
LOC: HO.HBS 08:06
PROVIDERS: PCP Internal Medicine; Visit Provider Surgery
DX: E66.9 Obesity, unspecified (principal); Z68.37 Body mass index [BMI] 37.0-37.9, adult; Z90.3 Acquired absence of stomach [part of]; Z98.84 Bariatric surgery status
CPT/HCPCS: 99443

== ENCOUNTER → 2023-05-11 08:06 | Outpatient (BNVA) | payer OTHER, SELFPAY | PROVIDERS: PCP Internal Medicine; Visit Provider Surgery ==

== ENCOUNTER 2023-05-23 10:00 | Outpatient (AMB) | payer OTHER, SELFPAY ==
--- NOTE | 2023-05-23 10:51 | A.OFFWM_ITS ---
Intake Intake Visit Reasons: VIDEO F/U SWL Allergies NSAIDS (Non-Steroidal Anti-Inflamma Adverse Reaction (Severe, Verified 05/11/23 11:31) intestinal upset PFSH Medical History (Updated 05/11/23 @ 11:44 by Rodrigo Reyes MD) DJD (degenerative joint disease) Sleep apnea treated with continuous positive airway pressure (CPAP) Sudden adrenal gland insufficiency Surgical History (Updated 05/11/23 @ 11:44 by Rodrigo Reyes MD) History of thyroidectomy History of dental surgery Hx of tonsillectomy Hx of arthroscopic knee surgery Hx of spinal surgery Hx of spinal fusion Hx of gastric bypass Hx of endoscopy Hx of colonoscopy Hx of oral surgery Family History Mother Cancer Anemia Dumping syndrome Father No problems noted. Sister Cancer Daughter Morbid obesity Chronic mental illness Daughter Chronic mental illness Daughter Chronic mental illness Daughter Chronic mental illness Son Chronic mental illness Social History Alcohol intake: former Patient Tobacco Use Status: Former Tobacco user Behavioral Health Assessment Weight Management Therapy Therapy Notes Details Pt reported less fighting at home, tries to not argue with her kids over some things, is choosing not to. Recent dental work done and can only eat soft foods. Feels like she is ready for surgery and has a better mindset about the lifestyle changes. Is still seeing therapist, does not always find it helpful. She will be seen again in office next Presenting Concerns Referral Source provider Reason for referral weight loss surgery evaluation Precipitating Event obesity Living Situation Current Living Situation Rent At risk of losing current housing? No Satisfied with current living situation? Yes Comments Patient lives with her three children ages 18,14, and 13. One of her daughters is cognitively delayed and weighs almost 400lbs. Food/Weight/Diet Expectations of change weight loss and maintenance History/Relationship with food Mom would tell her that she was fat and lazy in middle school and high school to try and get her to loose weight. This eventually made her eat more. She started to go to [employer] and get two meals, fries, and milkshake. In high school she was around 300lbs and then tried college but dropped out due to knee pain navigating campus. The tried again later but it was her back pain that was a struggle. She reported binge eating leading up to her gastric bypass at 36 years old but not since then. History/Relationship with weight Around 400lbs at her highest and then 140lbs at her lowest. After she had her babies she was around 160lbs. After having spinal issues and being on several medications, she gained sig. weight as well as severe depression. She ended up having a spinal fusion in 2009 due to spinal stenosis. She reported falling down four flight concrete stairs which damaged the nerve to her bladder. She has had numerous surgeries as a result. History/Relationship with dieting 2005 has gastric bypass at [facility] and [facility] (400lbs-142lbs). She stayed at that weight for about one year and then got . She had two high risk pregnancies after surgery. Binge Eating Do you frequently eat large amounts of food in short periods of time, not feeling physically hungry? No Do you feel out of control when you eat a large amount of food in a short period of time? No Do you eat large amounts of food rapidly and typically alone? No Night Eating Do you wake up at least once during the night to eat? No If you wake up in the night, do you find that it is necessary to eat something in order to fall back asleep? No Do you have little or no appetite in the morning and feel very hungry in the evening, often overeating between dinner and when you go to bed? No Social History Family history and relationship Pt was born in this area and raised in [place] then back here by her mother and younger sister. but also had 5 other children from her father. Her parents when she was 6 years old. Parental/Familial call worker obligations children Developmental history and status no issues Community support none Synagogue/Spirituality Hindu Cultural/Ethnic information Black Legal Involvement and History Current or historical involvement with the legal system? none Education Highest grade completed some college Preferred learning style Auditory, Verbal, Written, Learn by doing and Visual Currently enrolled in educational program? No Interested in further educational program? 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 Employment Employment Status Other Wants help to find employment? No Meaningful activities coloring, enjoys reading, crocheting in the past Financial Situation Describe current financial situation Often struggles with finance Financial assistance? Child Support and SSDI Service Service? No Mental Health and Addiction Treatment Current/Past substance abuse? Yes Current/Past addictive behavior concerns? Yes Medications Is the patient compliant with medications? Yes Does the patient have Clark Guardian in place? Not applicable Does the patient use complimentary health approaches? Yes Trauma/Abuse History History of trauma? Yes Assessment & Plan Assessment & Plan (1) Posttraumatic stress disorder: Code(s): F43.10 - Post-traumatic stress disorder, unspecified (2) Morbid obesity: Code(s): E66.01 - Morbid (severe) obesity due to excess calories Plan Patient is interested and could benefit from EMDR, treatment plan with this advertising writer once she knows if she is eligible for the surgery. She is currently in therapy, has long history of medical and emotional struggles. Patient is cleared for surgery when ready. *scales not included during new patient paperwork. Coding Level of Care Code Tele Psytx 30 mins (90603) Diagnoses Posttraumatic stress disorder F43.10 Morbid obesity E66.01 Time Spent (min) 27
== END 2023-05-23 10:51 | disposition home or self-care (01) ==
LOC: HO.HBST 10:00
PROVIDERS: PCP Internal Medicine; Visit Provider Counselor Mental Health
DX: F43.10 Post-traumatic stress disorder, unspecified (principal); E66.01 Morbid (severe) obesity due to excess calories
CPT/HCPCS: 90832

== ENCOUNTER → 2023-05-23 10:00 | Outpatient (BNVA) | payer OTHER, SELFPAY | PROVIDERS: PCP Internal Medicine; Visit Provider Counselor Mental Health ==

== ENCOUNTER 2023-06-23 05:59 | Day surgery (SDC) | payer OTHER, SELFPAY ==
--- NOTE | 2023-06-19 17:39 | MHC.SHP ---
Pre-Procedural Eval Section A Date of Service: 06/19/23 The patient is an INPATIENT: No The History & Physical has been completed within 30 days and I have reviewed it.: Yes Section B Chief Complaint: Bariatric surgery status Relevant Family History (Specify if Yes): No Relevant Social History: None Present Medications: None Medical History: No relevant PMH History of Previous Operations: Relevant previous surgery/procedure and date(s) Allergies: Allergies Allergy/AdvReac Type Severity Reaction Status Date / Time NSAIDS (Non-Steroidal AdvReac Severe intestinal Verified 05/11/23 11:31 Anti-Inflamma upset Review of Systems Sugical H&P ROS: Negative: Constitution, Cardiovascular, Respiratory, Neurological, Psychiatric, Hem-Onc, Allergic/Immunologic, Genitourinary, Musculoskeletal, Integumentary, Endocrine and Eyes/Ears/Nose/Throat and Yes, Specify: Gastrointestinal (GERD) Exam Surgical H&P Exam: Normal: HEENT, Normal: Heart, Normal: Lungs, Normal: Extremities, Normal: Abdomen, Normal: Skin and Normal: Neurological Plan Diagnosis/Plan: Unchanged (EGD to assess severity of esophagitis and GERD. Risks for perforation and bleeding were discussed with patient. She is in agreement with the plan) I have reviewed the history and physical and performed a pertinent physical examination on my patient. No changes have occurred unless specified. Time Spent With Patient Time: Total time managing care of this patient today ____ minutes.
[2023-06-20 14:12] VITALS: BMI 37.2
--- NOTE | 2023-06-22 09:58 | HO.ANESPROP2 ---
Documented by User: Helen Ibarra NP 06/22/23 11:55 HPI - Anesthesia Eval Consult details Narrative: 52yo F for Upper Endoscopy Anesthesia Pre-Procedure Meds Is the patient on any of the following meds?: Semaglutide (Ozempic) (Last dose 06/13/23) If Yes to any meds - educate patient: Pt education - increased risk of aspiration and Pt education - possibility of cancelled proc at provider's discretion PMFSH Active Problems Active Problems: All Active Problems (Updated 06/20/23 @ 15:16 by Yoon Mello) DJD (degenerative joint disease) (Acute) Sleep apnea treated with continuous positive airway pressure (CPAP) (Acute) BMI 37.0-37.9, adult (Acute) Obesity (Acute) Vitamin A deficiency (Acute) Vitamin B12 deficiency (Acute) Vitamin D deficiency (Acute) Iron deficiency (Acute) Sudden adrenal gland insufficiency (Acute) Posttraumatic stress disorder (Acute) Abnormal ECG (Acute) Pre-op evaluation (Acute) Tobacco smoker, 1 pack of cigarettes or less per day (Acute) Low blood pressure (Acute) Anxiety and depression (Acute) Diabetes mellitus (Acute) Insomnia (Acute) Asthma (Acute) COPD (chronic obstructive pulmonary disease) (Acute) Emphysema lung (Acute) Hypothyroid (Acute) Obstructive sleep apnea (Acute) S/P gastric bypass (Acute) Morbid obesity (Acute) Past Medical History Medical History (Updated 06/20/23 @ 15:16 by Yoon Mello) Anxiety and depression Hypothyroid Diabetes Asthma COPD (chronic obstructive pulmonary disease) DJD (degenerative joint disease) Sleep apnea treated with continuous positive airway pressure (CPAP) Sudden adrenal gland insufficiency Family History Family History (System 06/20/23 @ 15:16 by Yoon Mello) Mother Cancer Anemia Dumping syndrome Father No problems noted. Sister Cancer Daughter Morbid obesity Chronic mental illness Daughter Chronic mental illness Daughter Chronic mental illness Daughter Chronic mental illness Son Chronic mental illness Surgical History Surgical History (Updated 06/20/23 @ 15:16 by Yoon Mello) History of thyroidectomy History of dental surgery Hx of tonsillectomy Hx of arthroscopic knee surgery Hx of spinal surgery Hx of spinal fusion Hx of gastric bypass Hx of endoscopy Hx of colonoscopy Hx of oral surgery Social History Social History (System 06/20/23 @ 15:16 by Yoon Mello) Alcohol intake: former Patient Tobacco Use Status: Former Tobacco user Use of substances other than those prescribed or required for medical reasons: No Are you DNR?: No Advance Directives: No Advance Directives Information Provided: Yes Meds Allergies Allergy/AdvReac Type Severity Reaction Status Date / Time NSAIDS (Non-Steroidal AdvReac Severe intestinal Verified 06/20/23 15:16 Anti-Inflamma upset Home Medications Medication Instructions Recorded Confirmed Last Taken Type albuterol sulfate 90 mcg/actuation 2 puff inhalation Q4-6H PRN 08/19/21 06/20/23 06/23/23 History aerosol inhaler Wheezing hydrocortisone 10 mg tablet 10 mg PO TID 08/19/21 06/20/23 Unknown History levocetirizine 5 mg tablet 5 mg PO DAILY 08/19/21 06/20/23 Unknown History levothyroxine 50 mcg tablet 50 mcg PO DAILY 08/19/21 06/20/23 Unknown History tizanidine 2 mg capsule 2 mg PO TID PRN Muscle Spasm 08/19/21 06/20/23 Unknown History hydroxyzine HCl 50 mg tablet 100 mg PO TID 08/06/22 06/20/23 Unknown History olanzapine 5 mg tablet 10 mg PO BID 08/06/22 06/20/23 Unknown History roflumilast 500 mcg tablet 500 mcg PO DAILY 08/06/22 06/20/23 Unknown History (Daliresp) Oxygen Home Use 09/08/22 05/11/23 Unknown History semaglutide 0.25 mg or 0.5 mg (2 0.25 mg subcut QWEEK 09/08/22 06/22/23 06/13/23 History mg/1.5 mL) subcutaneous pen injector (Ozempic) doxepin 50 mg capsule 150 mg PO BEDTIME 10/18/22 06/20/23 Unknown History nicotine 21 mg/24 hr daily 1 patch transdermal DAILY 01/14/23 06/20/23 Unknown History transdermal patch (Nicoderm CQ) lurasidone 20 mg tablet (Latuda) 3 mg PO DAILY 04/22/23 06/20/23 Unknown History Exam Exam Date and Time: June 22, 2023 0958 Height,Weight and Vital Signs: Height 5 ft 3 in Weight 95.254 kg Documented by User: Mc Gomez MD 06/23/23 07:04 [facility] Past Medical History Medical History (Updated 06/20/23 @ 15:16 by Yoon Mello) Anxiety and depression Hypothyroid Diabetes Asthma COPD (chronic obstructive pulmonary disease) DJD (degenerative joint disease) Sleep apnea treated with continuous positive airway pressure (CPAP) Sudden adrenal gland insufficiency Family History Family History (System 06/20/23 @ 15:16 by Yoon Mello) Mother Cancer Anemia Dumping syndrome Father No problems noted. Sister Cancer Daughter Morbid obesity Chronic mental illness Daughter Chronic mental illness Daughter Chronic mental illness Daughter Chronic mental illness Son Chronic mental illness Family history of problems with anesthesia: No Surgical History Surgical History (Updated 06/20/23 @ 15:16 by Yoon Mello) History of thyroidectomy History of dental surgery Hx of tonsillectomy Hx of arthroscopic knee surgery Hx of spinal surgery Hx of spinal fusion Hx of gastric bypass Hx of endoscopy Hx of colonoscopy Hx of oral surgery History of Problems with Anesthesia: No Social History Social History (System 06/20/23 @ 15:16 by Yoon Mello) Alcohol intake: former Patient Tobacco Use Status: Former Tobacco user Use of substances other than those prescribed or required for medical reasons: No Are you DNR?: No Advance Directives: No Advance Directives Information Provided: Yes Meds Allergies Allergy/AdvReac Type Severity Reaction Status Date / Time NSAIDS (Non-Steroidal AdvReac Severe intestinal Verified 06/20/23 15:16 Anti-Inflamma upset Home Medications Medication Instructions Recorded Confirmed Last Taken Type albuterol sulfate 90 mcg/actuation 2 puff inhalation Q4-6H PRN 08/19/21 06/20/23 06/23/23 History aerosol inhaler Wheezing hydrocortisone 10 mg tablet 10 mg PO TID 08/19/21 06/20/23 Unknown History levocetirizine 5 mg tablet 5 mg PO DAILY 08/19/21 06/20/23 Unknown History levothyroxine 50 mcg tablet 50 mcg PO DAILY 08/19/21 06/20/23 Unknown History tizanidine 2 mg capsule 2 mg PO TID PRN Muscle Spasm 08/19/21 06/20/23 Unknown History hydroxyzine HCl 50 mg tablet 100 mg PO TID 08/06/22 06/20/23 Unknown History olanzapine 5 mg tablet 10 mg PO BID 08/06/22 06/20/23 Unknown History roflumilast 500 mcg tablet 500 mcg PO DAILY 08/06/22 06/20/23 Unknown History (Daliresp) Oxygen Home Use 09/08/22 05/11/23 Unknown History semaglutide 0.25 mg or 0.5 mg (2 0.25 mg subcut QWEEK 09/08/22 06/22/23 06/13/23 History mg/1.5 mL) subcutaneous pen injector (Ozempic) doxepin 50 mg capsule 150 mg PO BEDTIME 10/18/22 06/20/23 Unknown History nicotine 21 mg/24 hr daily 1 patch transdermal DAILY 01/14/23 06/20/23 Unknown History transdermal patch (Nicoderm CQ) lurasidone 20 mg tablet (Latuda) 3 mg PO DAILY 04/22/23 06/20/23 Unknown History Exam Airway Mallampati Class: III TM Dist: >3cm Neck ROM: Full Loose/Missing/Broken Teeth: Yes and Upper Assessment and Plan Assessment Anesthesia Assessment: Anesthesia Plan Discussed and Chart Reviewed Final Anesthetic Review Family History of Problems with Anesthesia: No History of Problems with Anesthesia: No NPO: Yes ASA Class: III Final Preanesthetic Review: No Changes in Pt Med Stat, Meds/Allgs Chart Reviewed, Consent Obtained/Reviewed and Anes Risks/Benef Reviewed Patient Risk: Intermediate Procedure Risk: Low Anesthetic Plan Anesthetic Plan: MAC: Disposition: Standard PACU
[2023-06-23 06:19] VITALS: BP 117/69; PULSE 72; RESP 16; TEMP 36.9; O2SAT 92
[2023-06-23] MEDS: Lactated Ringers 1,000 ML 80 ML IVCONT (06:38)
[2023-06-23 06:57] LABS: Glucose, Whole Blood 98 mg/dL (60-115)
--- NOTE | 2023-06-23 07:38 | PM.OP ---
Brief Operative Note Date of Service: 06/23/23 Pre-op diagnosis: GERD, s/p gastric bypass Post-op diagnosis: same (Hiatal hernia) Procedure: PROCEDURE DATE: ?06/23/2023 PREOPERATIVE DIAGNOSIS: GERD, s/p gastric bypass POSTOPERATIVE DIAGNOSIS: ?Same as above. 1) Redundant gastric pouch, 2) Candy cane gastro-jejunostomy, 3) Hiatal hernia PROCEDURE: [id number] with biopsies Surgeon: ?Jordan Reyes M.D.. Ph.D. Pharmaceutical Detailer: ?None ? Anesthesia: IV sedation Estimated blood loss: ?Minimal FINDINGS AND PROCEDURE: ? OPERATIVE INDICATIONS: ?The patient is a 52 year old female known to me who underwent a laparoscopic-assisted gastric bypass elsewhere. The patient had inadequate weight loss so far and has GERD.? Based on this information I recommended an upper endoscopy to evaluate the patient's symptoms.? Risks and complications of the surgery were discussed with the patient in advance particularly the possibility of perforation or bleeding that may require surgical intervention. The patient understood the risks and was in agreement with the plan. ? PROCEDURE: After informed consent was obtained by the patient, the patient was ?transferred to the Operating Room and was placed in the supine position.? After successful induction of IV sedation, a mouth block was placed and the patient was placed in the left lateral decubitus position. An upper endoscopy was performed next, the oropharynx and esophagus appeared within the normal limits. There was a 2cm hiatal hernia.? The z-line was irregular. Two biopsies were obtained from the distal esophagus 2-3 cm proximal to the GE junction and two biopsies from the GE junction. The small pouch was entered. The gastric pouch was short with the GE junction being at 40cm from incisors and the gastrojejunostomy at 43cm from incisors. There was significant lateral redundancy. There was no gastritis and the gastrojejunostomy was patent. A biopsy was obtained from the gastric pouch. No significant bleeding was noted from any of the biopsy sites. There was no anastomotic ulcer.? At that point the scope was advanced into the proximal small intestine (proximal Casandra limb) which appeared to be normal as well. The blind end of the Casandra limb was approximately 3cm long. The Casandra limb and the pouch were decompressed and the scope was withdrawn from the patient's mouth. The patient was awaken and was transferred in stable condition to the Recovery Room for further care. I was present and performed all steps of the procedure. There were no residents to assist with this case. Jordan Reyes M.D., Ph.D. Surgeon: Rodrigo Reyes MD Anesthesia: MAC Was an Pharmaceutical Detailer used for this Procedure?: No Estimated blood loss (mL): 0 IV fluids (mL): 400 Urine output (mL): 0 (No Kauffman to record output) Pathology: other (1) Gastric pouch, 2) GE junction x2, 3) distal esophagus x3) Condition: stable Disposition: PACU
[2023-06-23 08:02] VITALS: BP 113/56; PULSE 78; RESP 16; TEMP 36.4; O2SAT 95
[2023-06-23 08:20] VITALS: BP 111/58; PULSE 70; RESP 17; TEMP 36.4; O2SAT 94
== END 2023-06-23 09:17 | disposition home or self-care (01) ==
PROVIDERS: PCP Internal Medicine; Visit Provider Surgery
PROC: 0DJ08ZZ Inspection of Upper Intestinal Tract, Via Natural or Artificial Opening Endoscopic (ICD-10-PCS; CPT 43235; principal; 2023-06-23 07:30)
DX: K95.89 Other complications of other bariatric procedure (principal); K21.9 Gastro-esophageal reflux disease without esophagitis; Z98.84 Bariatric surgery status; K44.9 Diaphragmatic hernia without obstruction or gangrene; K22.89 Other specified disease of esophagus; E27.40 Unspecified adrenocortical insufficiency; E11.9 Type 2 diabetes mellitus without complications; D64.9 Anemia, unspecified; E03.9 Hypothyroidism, unspecified; G47.30 Sleep apnea, unspecified; F41.9 Anxiety disorder, unspecified; E66.9 Obesity, unspecified; Z68.37 Body mass index [BMI] 37.0-37.9, adult; J44.9 Chronic obstructive pulmonary disease, unspecified; Z99.81 Dependence on supplemental oxygen; Z99.89 Dependence on other enabling machines and devices; Z79.85 Long-term (current) use of injectable non-insulin antidiabetic drugs; Z79.899 Other long term (current) drug therapy; Z88.8 Allergy status to other drugs, medicaments and biological substances; Z87.891 Personal history of nicotine dependence
CPT/HCPCS: 43239; 82947; 88305; 88342

== ENCOUNTER → 2023-06-23 05:59 | Outpatient (BNV) | payer OTHER, SELFPAY | PROVIDERS: PCP Internal Medicine; Visit Provider Surgery | DX: K21.9 Gastro-esophageal reflux disease without esophagitis (principal); K95.89 Other complications of other bariatric procedure | CPT/HCPCS: 43239 ==

== ENCOUNTER 2023-06-29 14:19 | Outpatient (AMB) | payer OTHER, SELFPAY ==
--- NOTE | 2023-06-29 14:20 | A.OFFWM_ITS ---
Intake Intake Visit Reasons: VIDEO F/U Allergies NSAIDS (Non-Steroidal Anti-Inflamma Adverse Reaction (Severe, Verified 06/20/23 15:16) intestinal upset PFSH Medical History (Updated 06/20/23 @ 15:16 by Yoon Mello) Anxiety and depression Hypothyroid Diabetes Asthma COPD (chronic obstructive pulmonary disease) DJD (degenerative joint disease) Sleep apnea treated with continuous positive airway pressure (CPAP) Sudden adrenal gland insufficiency Surgical History (Updated 06/20/23 @ 15:16 by Yoon Mello) History of thyroidectomy History of dental surgery Hx of tonsillectomy Hx of arthroscopic knee surgery Hx of spinal surgery Hx of spinal fusion Hx of gastric bypass Hx of endoscopy Hx of colonoscopy Hx of oral surgery Family History (System 06/20/23 @ 15:16 by Yoon Mello) Mother Cancer Anemia Dumping syndrome Father No problems noted. Sister Cancer Daughter Morbid obesity Chronic mental illness Daughter Chronic mental illness Daughter Chronic mental illness Daughter Chronic mental illness Son Chronic mental illness Social History (System 06/20/23 @ 15:16 by Yoon Mello) Alcohol intake: former Patient Tobacco Use Status: Former Tobacco user Behavioral Health Assessment Weight Management Therapy Therapy Notes Details Pt discussed her weight loss progress, personal and family stressors and a setback she experienced. Her sister is fighting an aggressive form of cancer and she is moving her to this area along with her niece and baby. She talked about making sure she continues to care for herself even with everything that is going on. Presenting Concerns Referral Source provider Reason for referral weight loss surgery evaluation Precipitating Event obesity Living Situation Current Living Situation Rent At risk of losing current housing? No Satisfied with current living situation? Yes Comments Patient lives with her three children ages 18,14, and 13. One of her daughters is cognitively delayed and weighs almost 400lbs. Food/Weight/Diet Expectations of change weight loss and maintenance History/Relationship with food Mom would tell her that she was fat and lazy in middle school and high school to try and get her to loose weight. This eventually made her eat more. She started to go to [employer] and get two meals, fries, and milkshake. In high school she was around 300lbs and then tried college but dropped out due to knee pain navigating campus. The tried again later but it was her back pain that was a struggle. She reported binge eating leading up to her gastric bypass at 36 years old but not since then. History/Relationship with weight Around 400lbs at her highest and then 140lbs at her lowest. After she had her babies she was around 160lbs. After having spinal issues and being on several medications, she gained sig. weight as well as severe depression. She ended up having a spinal fusion in 2009 due to spinal stenosis. She reported falling down four flight concrete stairs which damaged the nerve to her bladder. She has had numerous surgeries as a result. History/Relationship with dieting 2005 has gastric bypass at [facility] (400lbs-142lbs). She stayed at that weight for about one year and then got . She had two high risk pregnancies after surgery. Binge Eating Do you frequently eat large amounts of food in short periods of time, not feeling physically hungry? No Do you feel out of control when you eat a large amount of food in a short period of time? No Do you eat large amounts of food rapidly and typically alone? No Night Eating Do you wake up at least once during the night to eat? No If you wake up in the night, do you find that it is necessary to eat something in order to fall back asleep? No Do you have little or no appetite in the morning and feel very hungry in the evening, often overeating between dinner and when you go to bed? No Social History Family history and relationship Pt was born in this area and raised in [place] then back here by her mother and younger sister. but also had 5 other children from her father. Her parents when she was 6 years old. 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 none Education Highest grade completed some college Preferred learning style Auditory, Verbal, Written, Learn by doing and Visual Currently enrolled in educational program? No Interested in further educational program? 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 Employment Employment Status Other Wants help to find employment? No Meaningful activities coloring, enjoys reading, crocheting in the past Financial Situation Describe current financial situation Often struggles with finance Financial assistance? Child Support and SSDI Service Service? No Mental Health and Addiction Treatment Current/Past substance abuse? Yes Current/Past addictive behavior concerns? Yes Medications Is the patient compliant with medications? Yes Does the patient have Clark Guardian in place? Not applicable Does the patient use complimentary health approaches? Yes Trauma/Abuse History History of trauma? Yes Assessment & Plan Assessment & Plan (1) Posttraumatic stress disorder: Code(s): F43.10 - Post-traumatic stress disorder, unspecified (2) Morbid obesity: Code(s): E66.01 - Morbid (severe) obesity due to excess calories Plan Patient is interested and could benefit from EMDR, treatment plan with this flex o writer operator once she knows if she is eligible for the surgery. She is currently in therapy, has long history of medical and emotional struggles. Patient is cleared for surgery when ready. *scales not included during new patient paperwork. Telehealth Telehealth Location of provider rendering services: practice address Location of patient: address on file Patient Identification confirmed using: Name, : Yes Telehealth method: video Patient verbally consented to treatment: Yes Patient verbally consented to billing insurance company: Yes Patient informed of any privacy concerns related to visit: Yes Minutes spent on Phone/Video with Pt.: 40 Coding Level of Care Code Tele Psytx 45 mins (08056) Diagnoses Posttraumatic stress disorder F43.10 Morbid obesity E66.01 Time Spent (min) 40
== END 2023-06-29 14:20 | disposition home or self-care (01) ==
LOC: HO.HBST 14:19
PROVIDERS: PCP Internal Medicine; Visit Provider Counselor Mental Health
DX: F43.10 Post-traumatic stress disorder, unspecified (principal); E66.01 Morbid (severe) obesity due to excess calories
CPT/HCPCS: 90834

== ENCOUNTER → 2023-06-29 14:19 | Outpatient (BNVA) | payer OTHER, SELFPAY | PROVIDERS: PCP Internal Medicine; Visit Provider Counselor Mental Health ==

== ENCOUNTER 2023-07-04 07:55 | Outpatient (AMB) | payer OTHER, SELFPAY ==
--- NOTE | 2023-07-04 08:09 | A.OFFVIS_ITS ---
Intake VS Expanded 07/04/23 08:20 Height 5 ft 3 in Weight 207 lb 6 oz BMI 36.7 Body Fat % 31.4 Body Fat Mass 65.1 Fat Free Mass 142.4 Visceral Fat Rating 18 Body Water % 47.1 Body Water Mass 97.7 Basal Metabolic Rate/Score 1,759 Intake Visit Reasons: TV Follow Up SWL Allergies NSAIDS (Non-Steroidal Anti-Inflamma Adverse Reaction (Severe, Verified 06/20/23 15:16) intestinal upset HPI TV Follow Up SWL HPI Details Start time: 7.58am, End time: 8.28am ?I spent 25 minutes speaking with the patient on the phone plus an additional 5 minutes reviewing and updating records for a total of 30 minutes HPI Comments History of Present Illness Details Overall weight loss: 28.2lbs, or 11.96% TBWL Is doing 3 Ensure Plus protein shakes and 3 Montenegrin yogurts Exercise: Gym x4/week doing elliptical for 150 calories and bike for 150 calories PFSH Medical History (Updated 07/04/23 @ 08:25 by Rodrigo Reyes MD) Anxiety and depression Hypothyroid Diabetes Asthma COPD (chronic obstructive pulmonary disease) DJD (degenerative joint disease) Sleep apnea treated with continuous positive airway pressure (CPAP) Sudden adrenal gland insufficiency Surgical History (Updated 06/20/23 @ 15:16 by Yoon Mello) History of thyroidectomy History of dental surgery Hx of tonsillectomy Hx of arthroscopic knee surgery Hx of spinal surgery Hx of spinal fusion Hx of gastric bypass Hx of endoscopy Hx of colonoscopy Hx of oral surgery Family History (System 06/20/23 @ 15:16 by Yoon Mello) Mother Cancer Anemia Dumping syndrome Father No problems noted. Sister Cancer Daughter Morbid obesity Chronic mental illness Daughter Chronic mental illness Daughter Chronic mental illness Daughter Chronic mental illness Son Chronic mental illness Social History (System 06/20/23 @ 15:16 by Yoon Mello) Alcohol intake: former Patient Tobacco Use Status: Former Tobacco user Physical Exam Vital Signs: BMI result Body Mass Index 36.7 Assessment & Plan Assessment & Plan (1) Obesity: Code(s): E66.9 - Obesity, unspecified Plan: 1. Plan for lap sleeve gastrectomy of the gastric pouch including upper GI endoscopy. All tests has been completed and reviewed and the patient is cleared for the surgery. ?If diaphragmatic or ventral hernias are present at time of surgery, these will be repaired laparoscopically as well. Risks and complications were discussed in detail including possible conversion to an open procedure, anastomotic leak, bleeding requiring transfusion, small bowel obstruction, , DVT and pulmonary embolism, cardiac, or pulmonary complications, as continuous churn buttermaker complications such as anastomotic ulcer, insufficient weight loss and vitamin deficiencies. I emphasized the importance of close follow-up, adherence to instructions and good communication. So far she has proven to be an excellent communicator and very compliant with all our directions accomplishing a great weight loss. I believe that she is an excellent candidate and she is ready. 2. Change nutritional plan to either 3 Ensure Plus protein shakes and 2 Montenegrin yogurts, or 2 Ensure Plus protein shakes and 3 Montenegrin yogurts 3. Exercise: Increase Gym to either 5 days/week doing elliptical for 200 calories and bike for 200 calories, or Gym x4/week doing elliptical for 250 calories and bike for 250 calories. Goal is to burn 2000 calories per week on aerobic exercise. 4. Alternatively purchase a stationary bike, elliptical or treadmill at home that can track calories. Let me know if you do so I can give you an exercise plan. 5. Continue to change weight measurements weekly on (2) BMI 36.0-36.9,adult: Code(s): Z68.36 - Body mass index [BMI] 36.0-36.9, adult Telehealth Telehealth Location of provider rendering services: practice address Location of patient: address on file Patient Identification confirmed using: Name, : Yes Telehealth method: voice only Patient verbally consented to treatment: Yes Patient verbally consented to billing insurance company: Yes Patient informed of any privacy concerns related to visit: Yes Minutes spent on Phone/Video with Pt.: 30 Coding Level of Care Code Tele Est Pt Level 4 (47634) Diagnoses Obesity E66.9 BMI 36.0-36.9,adult Z68.36 Time Spent (min) 30
--- OUTSIDE RECORDS SUMMARY | 2023-07-04 08:09 | XMS_ITS | Continuity of Care Document ---
Author Name Unknown Organization [facility] Address [address] [place] [id number]- Care Team Providers Care Assistant Family Teacher Name Role Phone Lj Hall MD, Richelle Primary Care Phys [facility] Encounter [facility] [id number] Date(s): 07/01/20 - 07/31/[address] [address] Attending Physician: Flor Gee Admitting Physician: Admtr, Flor Referring Physician: Admtr, Ar8 Allergies, Adverse Reactions, Alerts Substance Reaction Severity Status NKA Active Immunizations Given and Recorded Vaccine Date Status Refusal Reason tetanus/diphtheria/pertussis, acel(Tdap) 04/11/12 Given Medications acarbose 50 mg oral tablet 1 tablet = 50 mg, By Mouth, 3 times a day, 0 Refills, Maintenance, 06/05/20 10:20:00 EDT Start Date: 06/05/20 Status: Ordered Albuterol (Eqv-Proventil HFA) 90 mcg/inh inhalation aerosol 2 puffs, Inhalation, Every 6 hours, 0 Refills, Maintenance, 06/05/20 10:23:00 EDT Start Date: 06/05/20 Status: Ordered amitriptyline 75 mg oral tablet 1 tablet = 75 mg, By Mouth, Daily at bedtime, 0 Refills, Maintenance, 06/05/20 10:07:00 EDT Start Date: 06/05/20 Status: Ordered cetirizine 5 mg oral tablet 1 tablet = 5 mg, By Mouth, Daily at bedtime, 0 Refills, Maintenance, 06/05/20 10:20:00 EDT Start Date: 06/05/20 Status: Ordered Hydrochlorothiazide = 25 mg, By Mouth, Daily, 0 Refills, Maintenance, 06/05/20 13:28:00 EDT Start Date: 06/05/20 Status: Ordered hydrOXYzine pamoate 25 mg oral capsule 1 capsule = 25 mg, By Mouth, 3 times a day, 0 Refills, Maintenance, 06/05/20 10:06:00 EDT Start Date: 06/05/20 Status: Ordered Incruse Ellipta See Instructions, 62.5 mcg Inhalation Every 24 hours, 0 Refills, Maintenance, 06/05/20 10:21:00 EDT Start Date: 06/05/20 Status: Ordered Latuda 120 mg oral tablet 1 tablet = 120 mg, By Mouth, Daily, 0 Refills, Maintenance, 06/05/20 10:00:00 EDT Start Date: 06/05/20 Status: Ordered levothyroxine 0.075 mg oral tablet See Instructions, 0 Refills, Maintenance, 06/05/20 10:09:00 EDT Start Date: 06/05/20 Status: Ordered lithium carbonate = 300 mg, By Mouth, 3 times a day, 0 Refills, Maintenance, 06/05/20 10:00:00 EDT Start Date: 06/05/20 Status: Ordered metFORMIN 500 mg oral tablet, extended release 1 tablet = 500 mg, By Mouth, Daily, # 90 tablet, 0 Refills, Maintenance, 06/05/20 13:27:00 EDT, ER Tablet Start Date: 06/05/20 Status: Ordered NIFEdipine = 30 mg, By Mouth, 0 Refills, Maintenance, 06/05/20 10:24:00 EDT Start Date: 06/05/20 Status: Ordered NIFEdipine 30 mg oral tablet, extended release 2 tablets, By Mouth, Daily, Refills 0, Maintenance, 06/05/20 13:19:00 EDT Start Date: 06/05/20 Status: Ordered Nystatin Powder Topically, 3 times a day, 0 Refills, Maintenance Start Date: 06/05/20 Status: Ordered pravastatin 10 mg oral tablet 1 tablet = 10 mg, By Mouth, Daily at bedtime, 0 Refills, Maintenance, 06/05/20 10:18:00 EDT Start Date: 06/05/20 Status: Ordered pregabalin 200 mg oral capsule 1 capsule = 200 mg, By Mouth, 2 times a day, 0 Refills, Maintenance, 06/05/20 10:03:00 EDT Start Date: 06/05/20 Status: Ordered Seroquel 100 mg, By Mouth, Daily at bedtime, Refills 0, Maintenance, 06/05/20 10:04:00 EDT Start Date: 06/05/20 Status: Ordered SymlinPen 60 = 60 mcg, Subcutaneous Infusion, 3 times a day before meals, 0 Refills, Maintenance, 06/05/20 10:14:00 EDT Start Date: 06/05/20 Status: Ordered tiZANidine 4 mg oral tablet 4 mg, 1, tablet, By Mouth, 2 times a day, Refills 0, Maintenance, 06/05/20 10:18:00 EDT Start Date: 06/05/20 Status: Ordered Vitamin D3 1000 intl units oral tablet 3 tablets, By Mouth, Daily, 0 Refills, Maintenance, 06/05/20 10:16:00 EDT Start Date: 06/05/20 Status: Ordered Zolpidem = 10 mg, By Mouth, Daily at bedtime, 0 Refills, Maintenance, 06/05/20 10:05:00 EDT Start Date: 06/05/20 Status: Ordered Problem List Condition Effective Dates Status Health Status Inform ant Failed back syndrome(Confirmed) Active Axillary hidradenitis supporativa(Confirmed) 1 Active History of bariatric surgery(Confirmed) 2005 Active Non-toxic multinodular goiter(Confirmed) 2 Active 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 at [facility]. S/p 03/16/2005 wide excision (2 x 4 cm) of hydradenitis of the left axilla by Geovany Mancera M.D. at [facility]. 2Status post right hemithyroidectomy-pathology revealed benign multinodular goiter.
--- OUTSIDE RECORDS SUMMARY | 2023-07-04 08:09 | XMS_ITS | Continuity of Care Document ---
Author Name Unknown Organization [facility] Address [address] [place] [address]- Care Team Providers Care Monotype Setter Name Role Phone Lj Hall MD, Richelle Primary Care Phys [facility] Encounter [facility]CT [facility] [id number] Date(s): 01/13/22 - 02/12/22 [facility] [address] [place] [address]- Attending Physician: Flor Gee Admitting Physician: AdmFlor serrano Referring Physician: AdmtrFlor Allergies, Adverse Reactions, Alerts Substance Reaction Severity Status NSAIDs Active Immunizations Given and Recorded Vaccine Date Status Refusal Reason tetanus/diphtheria/pertussis, acel(Tdap) 04/11/12 Given Medications Albuterol (Eqv-Proventil HFA) 90 mcg/inh inhalation aerosol 2 puffs, Inhalation, Every 6 hours, PRN Wheezing/Shortness of Breath, 0 Refills, Maintenance, 06/05/20 10:23:00 EDT Start Date: 06/05/20 Status: Ordered budesonide-formoterol 160 mcg-4.5 mcg/inh inhalation aerosol with adapter 2, puffs, Inhalation, 2 times a day, Maintenance, 06/27/21 16:43:00 EDT, Aerosol Start Date: 06/27/21 Status: Ordered chantix 0.5mg tablet 1 tablet = 0.5 mg, By Mouth, Daily, Take 0.5mg two times a day for 3 days, till 07/06, then 1mg twotimes a day for next 12 weeks., # 56 tablet, 1 Refills, Maintenance, 07/03/21 12:52:00 EST, Tablet,[id number], Partial fill upon cookie... Start Date: 07/03/21 Status: Ordered FLUoxetine 20 mg/5 mL oral solution 10 mL = 40 mg, By Mouth, Daily, Maintenance, 06/27/21 16:37:00 EDT, ; Start Date: 06/27/21 Status: Ordered Hair, Skin & Nails 1 tablet, By Mouth, Daily, Maintenance, 06/27/21 16:48:00 EDT, ; Start Date: 06/27/21 Status: Ordered hydrochlorothiazide 25 mg oral tablet 25 mg, 1, tablet, By Mouth, Daily, Maintenance, 06/27/21 16:41:00 EDT, ; Start Date: 06/27/21 Status: Ordered HydroCORTisone 10 mg oral tablet 2 tablets by mouth every [place] & 1 tablet at 4PM, Maintenance, 06/27/21 16:37:00 EDT, ; Start Date: 06/27/21 Status: Ordered hydrOXYzine pamoate 50 mg oral capsule 1 capsule = 50 mg, By Mouth, 3 times a day, Maintenance, 06/27/21 16:40:00 EDT, ; Start Date: 06/27/21 Status: Ordered Icy Hot - cream 1 application, Topically, Daily at bedtime, legs, Maintenance, 06/27/21 16:46:00 EDT, ; Start Date: 06/27/21 Status: Ordered Icy Hot Extra Strength 5% topical pad 1 patch, Topically, Daily, PRN as needed, Maintenance, 06/27/21 16:45:00 EDT, ; Start Date: 06/27/21 Status: Ordered Incruse Ellipta 1 puff, Inhalation, Every 24 hours, 0 Refills, Maintenance, 06/05/20 10:21:00 EDT Start Date: 06/05/20 Status: Ordered levocetirizine 5 mg oral tablet 1 tablet = 5 mg, By Mouth, Daily in PM, Maintenance, 06/27/21 16:43:00 EDT, Tablet, ; Start Date: 06/27/21 Status: Ordered levothyroxine 0.05 mg oral tablet 1 tablet = 50 mcg, By Mouth, Daily, 0 Refills, Maintenance, 06/25/21 7:59:00 EDT, Tablet, ; Start Date: 06/25/21 Status: Ordered Nicotine 2 mg gum 1 each = 2 mg, Chew, Every 2 hours, PRN as needed for smoking cessation, # 160 each, 0 Refills, Maintenance, 07/03/21 12:26:00 EST, Gum, [facility], Partial fill upon patient request ifthe prescription is for a schedule II opioid drug.,... Start Date: 07/03/21 Status: Ordered olanzapine 5 mg oral tablet 5 mg, 1, tablet, By Mouth, 2 times a day, Refills 0, Maintenance, 06/25/21 8:02:00 EDT, ; Start Date: 06/25/21 Status: Ordered Oxygen 0 Refills, Maintenance, 07/20/21 8:16:00 EST, Partial fill upon patient request if the prescriptionis for a schedule II opioid drug. Start Date: 07/20/21 Status: Ordered pramlintide 1000 mcg/mL subcutaneous solution = 60 mcg, Subcutaneous Injection, 3 times a day before meals, # 2 each, 0 Refills, Maintenance, 10/01/21 8:28:00 EST, Solution, Partial fill upon patient request if the prescription is for a scheduleII opioid drug. Start Date: 10/01/21 Status: Ordered tiZANidine 4 mg oral tablet 2 mg, 0.5, tablet, By Mouth, 3 times a day, PRN, # 10 tablet, Refills 0, Tot. Refills 0, Maintenance, Spasm, 07/03/21 12:24:00 EST, Route to Pharmacy Electronically, [facility], Partialfill upon patient request if the prescription is fo... Start Date: 07/03/21 Stop Date: 07/06/21 Status: Ordered traZODone 100 mg oral tablet 2 tablets, By Mouth, Daily at bedtime, Refills 0, Maintenance, 06/25/21 8:01:00 EDT, ; Start Date: 06/25/21 Status: Ordered Trelegy Ellipta 200 mcg-62.5 mcg-25 mcg/inh inhalation powder 1 puffs, Inhalation, Daily, at the same time every day, 0 Refills, Maintenance, 09/02/21 10:29:00 EST, Powder, Partial fill upon patient request if the prescription is for a schedule II opioid drug. Start Date: 09/02/21 Status: Ordered Tums 500 mg oral tablet, chewable 1,000 mg, 2, tablet, Chew, 3 times a day, Maintenance, 06/27/21 16:47:00 EDT, ; Start Date: 06/27/21 Status: Ordered Valium 5 mg oral tablet See Instructions, 2 tabs po 1 hr. prior to procedure, May take additional tab on arrival to [facility] if needed, # 3 tablet, Refills 0, Tot. Refills 0, Maintenance, 11/13/21 16:13:00 EDT, Instructions Replace Required Details, Route to Pharmacy [facility]... Start Date: 11/13/21 Status: Ordered Problem List Condition Effective Dates Status Health Status Inform ant Failed back syndrome(Confirmed) Active Axillary hidradenitis supporativa(Confirmed) 1 Active History of bariatric surgery(Confirmed) 2005 Active Morbid obesity due to excess calories(Confirmed) Active Non-toxic multinodular goiter(Confirmed) 2 Active Obstructive sleep apnea(Confirmed) Active Knee osteoarthritis(Confirmed) Active Other 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 at [facility]. S/p 03/16/2005 wide excision (2 x 4 cm) of hydradenitis of the left axilla by Geovany Mancera M.D. at [facility]. 2Status post right hemithyroidectomy-pathology revealed benign multinodular goiter. Social History Social History Type Response Smoking Status 10 or more cigarette s (1/2 pack or more)/day in last 30 days; Other: since 17 y.o.; entered on: 07/20/21 Sex
--- OUTSIDE RECORDS SUMMARY | 2023-07-04 08:09 | XMS_ITS | Continuity of Care Document ---
Author Name Unknown Organization [facility] Address [address] [place] [id number]- Care Team Providers Care Tie Mill Operator Name Role Phone Lj Hall MD, Richelle Primary Care Phys [facility] [place] [facility] [id number] Date(s): 08/04/21 - 09/03/21 [facility] [address] [place] [id number]- Referring Physician: Amrita Amaya Allergies, Adverse Reactions, Alerts Substance Reaction Severity [...] tablet, 1 Refills, Maintenance, 07/03/21 12:52:00 EST, Tablet,[facility] #[id number], Partial fill upon cookie... Start Date: 07/03/21 [...] 0 Refills, Maintenance, 07/03/21 12:26:00 EST, Gum, [facility], Partial fill upon patient request [...] opioid drug. Start Date: 07/20/21 Status: Ordered tiZANidine 4 mg oral tablet 2 mg, 0.5, tablet, By Mouth, 3 times a day, PRN, # 10 tablet, Refills 0, Tot. Refills 0, Maintenance, Spasm, 07/03/21 12:24:00 EST, Route to Pharmacy Electronically, [facility], Partialfill upon patient request if the [...] EDT, ; Start Date: 06/27/21 Status: Ordered Problem List Condition Effective Dates [...] to hidradenitis by Geovany Mancera M.D. at [facility]. S/p 03/16/2005 wide excision (2 x 4 cm) of hydradenitis of the left axilla by Geovany Mancera M.D. at [facility]. 2Status post right hemithyroidectomy-pathology revealed benign multinodular goiter. Social History Social History Type Response Smoking Status 10 or more cigarette s (1/2 pack or more)/day in last 30 days; Other: since 17 y.o.; entered on: 07/20/21 Sex
--- OUTSIDE RECORDS SUMMARY | 2023-07-04 08:09 | XMS_ITS | Continuity of Care Document ---
Author Name Unknown Organization [facility] Address [address] [place] [id number]- Care Team Providers Care Certified Ski Patroller Name Role Phone Lj Hall MD, Richelle Primary Care Phys [facility] Encounter [facility] Date(s): 09/24/21 - 10/24/[address] [address] Attending Physician: Admmaggie, Flor Admitting Physician: Admtr, Hugh8 Referring Physician: Admtr, Ar8 Allergies, Adverse Reactions, [...] tablet, 1 Refills, Maintenance, 07/03/21 12:52:00 EST, Tablet,[facility] #[id number], Partial fill upon cookie... Start Date: 07/03/21 [...] 0 Refills, Maintenance, 07/03/21 12:26:00 EST, Gum, [facility], Partial fill upon patient request ifthe [...] 07/03/21 12:24:00 EST, Route to Pharmacy Electronically, [facility], Partialfill upon patient request if the [...] to hidradenitis by Geovany Mancera M.D. at [facility]. S/p 03/16/2005 wide excision (2 x 4 cm) of hydradenitis of the left axilla by Geovany Mancera M.D. at [facility]. 2Status post right hemithyroidectomy-pathology revealed benign multinodular goiter. Social History Social History Type Response Smoking Status 10 or more cigarette s (1/2 pack or more)/day in last 30 days; Other: since 17 y.o.; entered on: 07/20/21 Sex
--- OUTSIDE RECORDS SUMMARY | 2023-07-04 08:09 | XMS_ITS | Continuity of Care Document ---
Author Name Unknown Organization [facility] ter Address [address] [place] [id number]- Care Team Providers Care Anode Worker Name Role Phone Lj Hall MD, Richelle [facility] Date(s): 04/25/22 - 04/29/[address] [id number] Encounter Diagnosis CO2 narcosis(Final) - 04/25/22 Discharge Disposition: A-D/C Home Attending Physician: Gibran ELKINS, Reina Jorge Admitting Physician: Portillo Decker MD, Radha Bonilla Referring Physician: Not on Staff, Referring MD Allergies, Adverse Reactions, Alerts Substance Reaction Severity Status NSAIDs Active Immunizations Given and Recorded Vaccine Date Status Refusal Reason SARS-CoV-2 mRNA (focsmuv-ipxg-erzzz) vax 09/03/21 Recorded SARS-CoV-2 (COVID-19) mRNA BNT-162b2 vac 12/28/20 Recorded SARS-CoV-2 (COVID-19) mRNA BNT-162b2 vac 12/09/20 Recorded tetanus/diphtheria/pertussis, acel(Tdap) 04/11/12 Given Medications acarbose 50 mg oral tablet 1 tablet = 50 mg, By Mouth, 3 times a day, Maintenance, 04/27/22 14:18:00 EDT, Tablet, Partial fillupon patient request if the prescription is for a schedule II opioid drug. Start Date: 04/27/22 Status: Ordered acetaminophen 325 mg oral tablet 975 mg, Tablet, By Mouth, 04/29/22 9:00:00 EDT Start Date: 04/29/22 Stop Date: 04/29/22 Status: Completed Albuterol (Eqv-Proventil HFA) 90 mcg/inh inhalation aerosol 2 puffs, Inhalation, Every 6 hours, PRN Wheezing/Shortness of Breath, 0 Refills, Maintenance, 06/05/20 10:23:00 EDT Start Date: 06/05/20 Status: Ordered amoxicillin-clavulanate 875 mg-125 mg oral tablet 1 tablet, By Mouth, Once, tonight at 9 pm with food to finish your antibiotic course, # 1 tablet, 0Refills, Soft Stop, 04/29/22 12:19:00 EDT, Tablet, [facility] #[id number], Partial fill upon patient request if the prescription is for a schedule... Start Date: 04/29/22 Status: Ordered azithromycin 500 mg oral tablet 1 tablet = 500 mg, By Mouth, Once, tonight at 9 pm with food to finish your antibiotic course, # 1 tablet, 0 Refills, Soft Stop, 04/29/22 12:19:00 EDT, Tablet, [facility] #[id number], Partial fill upon patient request if the prescription is for a... Start Date: 04/29/22 Status: Ordered docusate-senna 50 mg-8.6 mg oral capsule 1 capsule, By Mouth, 2 times a day, PRN Constipation, # 30 capsule, 0 Refills, Acute 05/27/22 12:20:00 EDT, 04/29/22 12:20:00 EDT, Capsule, [facility] #[id number], Partial fill upon patient request if the prescription is for a schedule II opioid... Start Date: 04/29/22 Stop Date: 05/27/22 Status: Ordered doxepin 50 mg oral capsule TAKE 1 CAPSULE BY MOUTH EVERY DAY Start Date: 04/25/22 Status: Ordered HydroCORTisone 10 mg oral tablet 2 tablets by mouth every [place] & 1 tablet at 4PM, Maintenance, 06/27/21 16:37:00 EDT, ; Start Date: 06/27/21 Status: Ordered HydroCORTisone 20 mg oral tablet 1 tablet = 20 mg, By Mouth, 2 times a day with meals, for 3 days, starting 04/30. On 05/03 can resume home dose, # 6 tablet, 0 Refills, Acute 05/02/22 12:16:00 EDT, 04/29/22 12:16:00 EDT, Tablet, [facility] #[id number], Partial fill upon patient req... Start Date: 04/29/22 Stop Date: 05/02/22 Status: Ordered HydroCORTisone 5 mg oral tablet 1 tablet = 5 mg, By Mouth, 2 times a day with meals, for 3 days, starting 04/30. On 05/03 can resume home dose, # 6 tablet, 0 Refills, Acute 05/02/22 12:16:00 EDT, 04/29/22 12:16:00 EDT, Tablet, [facility] #[id number], Partial fill upon patient requ... Start Date: 04/29/22 Stop Date: 05/02/22 Status: Ordered hydrOXYzine pamoate 50 mg oral capsule 1 capsule = 50 mg, By Mouth, 3 times a day, Maintenance, 06/27/21 16:40:00 EDT, ; Start Date: 06/27/21 Status: Ordered levocetirizine 5 mg oral tablet 1 tablet = 5 mg, By Mouth, Daily in PM, Maintenance, 06/27/21 16:43:00 EDT, Tablet, ; Start Date: 06/27/21 Status: Ordered levothyroxine 0.05 mg oral tablet 1 tablet = 50 mcg, By Mouth, Daily, 0 Refills, Maintenance, 06/25/21 7:59:00 EDT, Tablet, ; Start Date: 06/25/21 Status: Ordered MiraLax oral powder for reconstitution = 17 Gm, By Mouth, Daily, PRN Constipation, dissolve in water before taking, # 255 Gm, 0 Refills, Acute 05/27/22 12:21:00 EDT, 04/29/22 12:21:00 EDT, REC Powder, [facility] #[id number], Partial fill upon patient request if the prescription is for... Start Date: 04/29/22 Stop Date: 05/27/22 Status: Ordered olanzapine 10 mg oral tablet 10 mg, 1, tablet, By Mouth, Daily at bedtime Start Date: 04/25/22 Status: Ordered Oxygen 0 Refills, Maintenance, 07/20/21 [...] opioid drug. Start Date: 10/01/21 Status: Ordered Trelegy Ellipta 200 mcg-62.5 mcg-25 mcg/inh inhalation powder 1 puffs, Inhalation, Daily, at the same time every day, 0 Refills, Maintenance, 09/02/21 10:29:00 EST, Powder, Partial fill upon patient request if the prescription is for a schedule II opioid drug. Start Date: 09/02/21 Status: Ordered Problem List Condition Effective Dates [...] to hidradenitis by Geovany Mancera M.D. at [facility]. S/p 03/16/2005 wide excision (2 x 4 cm) of hydradenitis of the left axilla by Geovany Mancera M.D. at [facility]. 2Status post right hemithyroidectomy-pathology revealed benign multinodular goiter. Results Orders for Microbiology Reports Name Date Blood Culture 04/25/22 Blood Culture #2 04/25/22 Microbiology Reports TEST:Blood Culture, Second Order STATUS:Unauthenticated BODY SITE: SOURCE:Blood COLLECTED DATE/TIME:04/25/22 2:38 PM Blood Culture, Second Order SPECIMEN DESCRIPTION : BLOOD L HAND SPECIAL REQUESTS : NONE CULTURE : NO GROWTH 4 DAYS REPORT STATUS : PRELIMINARY REPORT TEST:Blood Culture STATUS:Unauthenticated BODY SITE: SOURCE:Blood COLLECTED DATE/TIME:04/25/22 2:34 PM Blood Culture SPECIMEN DESCRIPTION : BLOOD R HAND SPECIAL REQUESTS : NONE CULTURE : NO GROWTH 4 DAYS REPORT STATUS : PRELIMINARY REPORT Radiology Reports * Exam Date Time Procedure Performing Provider Status 04/25/22 3:26 PM Chest Portable Wei Vieira; Auth (Ileana ified) Notes: (Chest Portable) Reason For Exam: Line/Tube Placement;Other: RESULT: Chest Portable Chest Portable performed upright at 3:14 PM Reason: Other:; Line Tube Placement; Clinical Question(s): Other:; Confirm Position, Assess for Complication COMPARISON: Chest x-rays dated 04/25/22 and 06/27/2021 FINDINGS: LINES AND TUBES: Spinal stimulator is again noted. There is an endotracheal tube with the tip approximately 1.7 cm above the juanita. An enteric tube extends to the stomach. LUNGS AND PLEURA: There are low lung volumes with linear atelectasis in the left lung base. No pleural effusion. No pneumothorax. HEART, MEDIASTINUM AND RYAN: Heart is normal in size. Normal upper mediastinal and hilar contour. BONES AND SOFT TISSUES: No acute abnormality. IMPRESSION: 1. Endotracheal and enteric tubes as above. 2. Low lung volumes with linear atelectasis in the left lung base. WSN: [id number] Ordering Physician: Jeffry Schmidt Dictated By: Siobhan Franco MD Dictated Date/Time: 04/25/22 4:50 pm Reviewed By: Siobhan Franco MD Signed By: Siobhan Franco MD Signed Date/Time: 04/25/22 4:50 pm Transcribed By: ZOILA Transcribed Date/Time: 04/25/22 4:49 pm * Exam Date Time Procedure Performing Provider Status 04/25/22 2:31 PM Chest Portable Erica Luis; Auth (Verified) Notes: (Chest Portable) Reason For Exam: Line/Tube Placement;Other: RESULT: Chest Portable Chest Portable performed semiupright at 2:19 PM Reason: Other:; Line Tube Placement; Clinical Question(s): Other:; Confirm Position, Assess for Complication COMPARISON: Chest x-ray dated 06/27/2021. FINDINGS: LINES AND TUBES: The tip of the endotracheal tube is seen 0.7 cm above the juanita. An enteric tube extends to the stomach, with the tip not included on the film. Metallic markers of a spinal stimulator are seen. LUNGS AND PLEURA: Pulmonary vascular congestion and trace left pleural effusion seen. No pneumothorax. HEART, MEDIASTINUM AND RYAN: Heart is normal in size. Normal upper mediastinal and hilar contour. BONES AND SOFT TISSUES: No acute abnormality. IMPRESSION: 1. Tubes and lines as above. 2. Pulmonary vascular congestion and trace left pleural effusion. WSN: [id number] Ordering Physician: Jeffry Schmidt Dictated By: Siobhan Franco MD Dictated Date/Time: 04/25/22 4:14 pm Reviewed By: Siobhan Franco MD Signed By: Siobhan Franco MD Signed Date/Time: 04/25/22 4:14 pm Transcribed By: ZOILA Transcribed Date/Time: 04/25/22 4:08 pm Vital Signs Most recent to oldest [Reference Range]: 1 2 3 Height 165 cm (04/29/22 12:36 PM) 165 cm (04/28/22 11:31 PM) 165 cm (04/28/22 8:01 PM) Weight 111 kg (04/28/22 6:58 PM) 114 kg (04/27/22 6:38 AM) 116.5 kg (04/26/22 6:39 AM) Oxygen Saturation [94-100 %] 99 % (04/29/22 12:36 PM) 100 % (04/29/22 7:00 AM) 94 % (04/29/22 2:48 AM) Pulse Rate [55-90 bpm] 77 bpm (04/29/22 12:36 PM) 60 bpm (04/29/22 7:00 AM) 72 bpm (04/28/22 11:31 PM) Body Mass Index [18.5-24.99] 42.17 *>HHI* (04/25/22 4:43 PM) 42.17 *>HHI* (04/25/22 3:58 PM) Blood Pressure [90-138/55-84 mm Hg] 135/79mm Hg (04/29/22 12:36 PM) 122/63mm Hg (04/28/22 11:31 PM) Systolic Blood Pressure [90-138 mm Hg] 136 mm Hg (04/29/22 7:00 AM) Diastolic Blood Pressure [55-84 mm Hg] 89 mm Hg *H* (04/29/22 7:00 AM) Respiratory Rate [16-30 br/min] 18 br/min (04/29/22 12:36 PM) 18 br/min (04/29/22 9:56 AM) 18 br/min (04/29/22 7:00 AM) Temperature [96.8-100.4 DegF] 98.8 DegF (04/29/22 12:36 PM) 97.7 DegF (04/29/22 7:00 AM) 98.3 DegF (04/28/22 11:31 PM) Liters per Minute 3 L/min (04/29/22 12:36 PM) 3 L/min (04/28/22 11:55 AM) 2 L/min (04/28/22 3:31 AM) Mode of Delivery (Oxygen) Nasal cannula (04/29/22 12:36 PM) Room air (04/29/22 7:00 AM) Room air (04/28/22 11:31 PM) Blood pressure sites Arm, left (04/29/22 12:36 PM) Arm, right (04/29/22 7:00 AM) Arm, right (04/28/22 11:31 PM) Temperature Route Oral (04/29/22 12:36 PM) Oral (04/29/22 7:00 AM) Oral (04/28/22 11:31 PM) Dry Weight 114.8 kg (04/25/22 4:43 PM) 114 kg (04/25/22 3:58 PM) Weight Obtained Via Bed scale (04/28/22 6:58 PM) Bed scale (04/27/22 6:38 AM) Bed scale (04/26/22 6:39 AM) Dry Weight Obtained Via Bed scale (04/25/22 4:43 PM) Bed scale (04/25/22 3:58 PM) Social History Social History Type Response Smoking Status 10 or more cigarette s (1/2 pack or more)/day in last 30 days; Other: since 17 y.o.; entered on: 07/20/21 Sex Note * BHSPowerscribe , CIS S: TRANSCRIBE Joan ELKINS, Siobhan Sim: VERIFY Event Display: Result: Authored Date: [id number] Chest Portable performed semiupright at 2:19 PM Reason: Other:; Line Tube Placement; Clinical Question(s): Other:; Confirm Position, Assess for Complication COMPARISON: Chest x-ray dated 06/27/2021. FINDINGS: LINES AND TUBES: The tip of the endotracheal tube is seen 0.7 cm above the juanita. An enteric tube extends to the stomach, with the tip not included on the film. Metallic markers of a spinal stimulator are seen. LUNGS AND PLEURA: Pulmonary vascular congestion and trace left pleural effusion seen. No pneumothorax. HEART, MEDIASTINUM AND RYAN: Heart is normal in size. Normal upper mediastinal and hilar contour. BONES AND SOFT TISSUES: No acute abnormality. IMPRESSION: 1. Tubes and lines as above. 2. Pulmonary vascular congestion and trace left pleural effusion. WSN: [id number] Ordering Physician: Jeffry Schmidt Dictated By: Siobhan Franco MD Dictated Date/Time: 04/25/22 4:14 pm Reviewed By: Siobhan Franco MD Signed By: Siobhan Franco MD Signed Date/Time: 04/25/22 4:14 pm Transcribed By: ZOILA Transcribed Date/Time: 04/25/22 4:08 pm * BHSPowerscribe , CIS S: TRANSCRIBE Siobhan Franco MD: VERIFY Event Display: Result: Authored Date: [id number] Chest Portable performed upright at 3:14 PM Reason: Other:; Line Tube Placement; Clinical Question(s): Other:; Confirm Position, Assess for Complication COMPARISON: Chest x-rays dated 04/25/22 and 06/27/2021 FINDINGS: LINES AND TUBES: Spinal stimulator is again noted. There is an endotracheal tube with the tip approximately 1.7 cm above the juanita. An enteric tube extends to the stomach. LUNGS AND PLEURA: There are low lung volumes with linear atelectasis in the left lung base. No pleural effusion. No pneumothorax. HEART, MEDIASTINUM AND RYAN: Heart is normal in size. Normal upper mediastinal and hilar contour. BONES AND SOFT TISSUES: No acute abnormality. IMPRESSION: 1. Endotracheal and enteric tubes as above. 2. Low lung volumes with linear atelectasis in the left lung base. WSN: [id number] Ordering Physician: Jeffry Schmidt Dictated By: Siobhan Franco MD Dictated Date/Time: 04/25/22 4:50 pm Reviewed By: Siobhan Franco MD Signed By: Siobhan Franco MD Signed Date/Time: 04/25/22 4:50 pm Transcribed By: ZOILA Transcribed Date/Time: 04/25/22 4:49 pm Care Team Personnel Name: Richelle Patel MD Address: [address] [place] [id number]
--- OUTSIDE RECORDS SUMMARY | 2023-07-04 08:09 | XMS_ITS | Continuity of Care Document ---
Author Name Unknown Organization [facility] Address [address] [place] [id number]- Care Team Providers Care Blow Mold Operator Name Role Phone Lj Hall MD, Richelle Primary Care Phys [facility] Encounter [facility] Date(s): 10/08/21 - 11/07/21 [facility] [address] [place] [id number] Allergies, Adverse Reactions, Alerts Substance Reaction Severity [...] tablet, 1 Refills, Maintenance, 07/03/21 12:52:00 EST, Tablet,[facility] #[id number], Partial fill upon cookie... Start Date: 07/03/21 [...] 0 Refills, Maintenance, 07/03/21 12:26:00 EST, Gum, [facility], Partial fill upon patient request ifthe [...] 07/03/21 12:24:00 EST, Route to Pharmacy Electronically, [facility], Partialfill upon patient request if the [...] to hidradenitis by Geovany Mancera M.D. at [facility]. S/p 03/16/2005 wide excision (2 x 4 cm) of hydradenitis of the left axilla by Geovany Mancera M.D. at [facility]. 2Status post right hemithyroidectomy-pathology revealed benign multinodular goiter. Social History Social History Type Response Smoking Status 10 or more cigarette s (1/2 pack or more)/day in last 30 days; Other: since 17 y.o.; entered on: 07/20/21 Sex
--- OUTSIDE RECORDS SUMMARY | 2023-07-04 08:09 | XMS_ITS | Continuity of Care Document ---
Author Name Unknown Organization [facility] ter Address [address] [place] [id number]- Care Team Providers Care Pony Ride Attendant Name Role Phone Richelle Patel MD Primary Care Phys ician Encounter [facility] Date(s): 07/04/21 - 08/09/[address] [address]- Attending Physician: Richelle Patel MD Admitting Physician: Richelle Patel MD Referring Physician: Richelle Patel MD Allergies, Adverse Reactions, Alerts Substance Reaction [...] tablet, 1 Refills, Maintenance, 07/03/21 12:52:00 EST, Tablet,[facility] #[id number], Partial fill upon cookie... Start Date: 07/03/21 [...] 0 Refills, Maintenance, 07/03/21 12:26:00 EST, Gum, [facility], Partial fill upon patient request ifthe [...] 07/03/21 12:24:00 EST, Route to Pharmacy Electronically, [facility], Partialfill upon patient request if the prescription is fo... Start Date: 07/03/21 Stop Date: 07/06/21 Status: Ordered traZODone 100 mg oral tablet 2 tablets, By Mouth, Daily at bedtime, Refills 0, Maintenance, 06/25/21 8:01:00 EDT, ; Start Date: 06/25/21 Status: Ordered Tums 500 mg oral tablet, chewable 1,000 mg, 2, tablet, Chew, 3 times a day, Maintenance, 06/27/21 16:47:00 EDT, ; Start Date: 06/27/21 Status: Ordered Problem List Condition Effective Dates Status Health Status Inform ant Failed back syndrome(Confirmed) Active Axillary hidradenitis supporativa(Confirmed) 1 Active History of bariatric surgery(Confirmed) 2005 Active Non-toxic multinodular goiter(Confirmed) 2 Active Knee osteoarthritis(Confirmed) Active Other 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 at [facility]. S/p 03/16/2005 wide excision (2 x 4 cm) of hydradenitis of the left axilla by Geovany Mancera M.D. at [facility]. 2Status post right hemithyroidectomy-pathology revealed benign multinodular goiter. Social History Social History Type Response Smoking Status 10 or more cigarette s (1/2 pack or more)/day in last 30 days; Other: since 17 y.o.; entered on: 07/20/21 Sex
--- OUTSIDE RECORDS SUMMARY | 2023-07-04 08:09 | XMS_ITS | Continuity of Care Document ---
Author Name Unknown Organization [facility] Address [address] [place] [id number]- Care Team Providers Care Director Of Knowledge Management Name Role Phone Lj Hall MD, Richelle Primary Care Phys [facility] En[facility] [id number] Date(s): 01/24/23 - 02/23/[address] [address]- Attending Physician: Admmaggie, Flor Admitting Physician: Admtr, Ar8 Referring Physician: Admtr, Ar8 Allergies, Adverse Reactions, Alerts Substance Reaction Severity Status NSAIDs Active Immunizations Given and Recorded Vaccine Date Status Refusal Reason SARS-CoV-2 mRNA ([id number]) vax 09/03/21 Recorded SARS-CoV-2 (COVID-19) mRNA BNT-162b2 vac 12/28/20 Recorded SARS-CoV-2 (COVID-19) mRNA BNT-162b2 vac 12/09/20 Recorded tetanus/diphtheria/pertussis, acel(Tdap) 04/11/12 Given Medications acetaminophen 325 mg oral tablet 650 mg, By Mouth, Every 6 hours, may take OTC. not to exceed 4000 mg/day, Refills 0, Maintenance, 11/24/22 8:47:00 EDT, Partial fill upon patient request if the prescription is for a schedule II opioid drug. Start Date: 11/24/22 Status: Ordered Albuterol (Eqv-Proventil HFA) 90 mcg/inh inhalation aerosol 2 puffs, Inhalation, Every 6 hours, PRN Wheezing/Shortness of Breath, 0 Refills, Maintenance, 06/05/20 10:23:00 EDT Start Date: 06/05/20 Status: Ordered apixaban 2.5 mg oral tablet 1 tablet = 2.5 mg, By Mouth, 2 times a day, # 60 tablet, 0 Refills, Maintenance, 11/24/22 8:42:00 EDT, Tablet, [facility], Partial fill upon patient request if the prescription is for aschedule II opioid drug., 165, cm, 11/12/22 9:51:00... Start Date: 11/24/22 Stop Date: 12/24/22 Status: Ordered docusate sodium 100 mg oral tablet = 100 mg, By Mouth, 2 times a day, # 60 tablet, 0 Refills, Maintenance, 11/24/22 8:44:00 EDT, Tablet, [facility], Partial fill upon patient request if the prescription is for a scheduleII opioid drug., 165, cm, 11/12/22 9:51:00 EDT, Hei... Start Date: 11/24/22 Stop Date: 12/24/22 Status: Ordered doxepin 50 mg oral capsule TAKE 1 CAPSULE BY MOUTH EVERY DAY Start Date: 04/25/22 Status: Ordered Eszopiclone By Mouth, Daily at bedtime, 0 Refills, Maintenance, 11/23/22 10:33:00 EDT, Partial fill upon patient request if the prescription is for a schedule II opioid drug. Start Date: 11/23/22 Status: Ordered fluticasone 50 mcg/inh nasal spray 1 sprays, Nares, Both, 2 times a day, 0 Refills, Maintenance, 11/12/22 9:59:00 EDT, [facility], Partial fill upon patient request if the prescription is for a schedule II opioid drug. Start Date: 11/12/22 Status: Ordered furosemide 20 mg oral tablet 20 mg, 1, tablet, By Mouth, Daily, # 30 tablet, Refills 0, Maintenance, 11/12/22 9:59:00 EDT, Partial fill upon patient request if the prescription is for a schedule II opioid drug. Start Date: 11/12/22 Status: Ordered HydroCORTisone 10 mg oral tablet [...] ; Start Date: 06/25/21 Status: Ordered MiraLax Powder 1 pack/packet = 17 Gm, By Mouth, Daily, PRN Constipation, 0 Refills, Maintenance, 11/24/22 8:47:00 EDT, Powder, Partial fill upon patient request if the prescription is for a schedule II opioid drug. Start Date: 11/24/22 Status: Ordered olanzapine 10 mg oral tablet 10 mg, 1, tablet, By Mouth, Daily at bedtime Start Date: 04/25/22 Status: Ordered pantoprazole 40 mg oral delayed release tablet = 40 mg, By Mouth, Daily, # 30 tablet, 0 Refills, Maintenance, 11/24/22 8:44:00 EDT, EC Tablet, 165, cm, 11/12/22 9:51:00 EDT, Height, 111.2, kg, 11/23/22 11:06:00 EDT, Dry Weight Start Date: 11/24/22 Stop Date: 12/24/22 Status: Ordered roflumilast 500 mcg oral tablet 1 tablet = 500 mcg, By Mouth, Daily, 0 Refills, Maintenance, 11/24/22 8:47:00 EDT, Tablet, Partial fill upon patient request if the prescription is for a schedule II opioid drug. Start Date: 11/24/22 Status: Ordered senna 187 mg oral tablet 1 tablet = 8.6 mg, By Mouth, Daily at bedtime, PRN as needed for constipation, 0 Refills, Maintenance, 11/24/22 8:48:00 EDT, Tablet, Partial fill upon patient request if the prescription is for a schedule II opioid drug. Start Date: 11/24/22 Status: Ordered tiZANidine 2 mg oral tablet 2 mg, 1, tablet, By Mouth, 2 times a day, PRN, # 90 tablet, Refills 0, Maintenance, as needed for muscle spasm, 11/12/22 10:02:00 EDT, Partial fill upon patient request if the prescription is for a schedule II opioid drug. Start Date: 11/12/22 Status: Ordered Trelegy Ellipta 200 mcg-62.5 mcg-25 mcg/inh inhalation powder 1 puffs, Inhalation, Daily, at the same time every day, 0 Refills, Maintenance, 09/02/21 10:29:00 EST, Powder, Partial fill upon patient request if the prescription is for a schedule II opioid drug. 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 at [facility]. S/p 03/16/2005 wide excision (2 x 4 cm) of hydradenitis of the left axilla by Geovany Mancera M.D. at [facility]. 2Status post right hemithyroidectomy-pathology revealed benign multinodular goiter. Social History Social History Type Response Smoking Status 10 or more cigarette s (1/2 pack or more)/day in last 30 days; Other: since 17 y.o.; entered on: 07/20/21 Sex Patient Care team information Care Team Personnel Name: Christopher Jackson RN Position: [facility] RN Member Role: Primary Care Nurse Name: Fadia Gomez RN Position: [facility] RN Member Role: Primary Care Nurse Name: Richelle Patel MD Position: Reference Physician Member Role: PCP Address: Address: [address] [place] [address] [place] [address] Name: Alana Phillips RN Position: S RN Member Role: Primary Care Nurse Name: Bernarda Fowler RN Position: [facility] RN Member Role: Primary Care Nurse Name: Vale Greenberg RN Position: [facility] RN Member Role: Primary Care Nurse Care Team Related Persons Name: SANKET MICHAELS Name: TALI HERNADEZ Address: home [address] [place] [id number] Name: HORACIO ANDRADE Address: [place] [address]
--- OUTSIDE RECORDS SUMMARY | 2023-07-04 08:09 | XMS_ITS | Continuity of Care Document ---
Author Name Unknown Organization [facility] ter Address [address] [place] [address]- Care Team Providers Care Hand Shaper Name Role Phone Lj Hall MD, Richelle Primary Care Phys [facility] Encounter [facility] ACCT R [id number] Date(s): 11/23/22 - 12/23/[address] [address]- Attending Physician: Not on Staff, Attending MD Admitting Physician: Not on Staff, Admitting MD Referring Physician: Not on Staff, Referring MD Allergies, Adverse Reactions, Alerts Substance Reaction Severity Status NSAIDs Active Immunizations Given and Recorded Vaccine Date Status Refusal Reason SARS-CoV-2 mRNA ([id number]) vax 09/03/21 Recorded SARS-CoV-2 (COVID-19) mRNA BNT-162b2 [...] 0 Refills, Maintenance, 11/24/22 8:42:00 EDT, Tablet, [facility], Partial fill upon patient request if the prescription is for aschedule II opioid drug., 165, cm, 11/12/22 9:51:00... Start Date: 11/24/22 Stop Date: 12/24/22 Status: Ordered docusate sodium 100 mg oral tablet = 100 mg, By Mouth, 2 times a day, # 60 tablet, 0 Refills, Maintenance, 11/24/22 8:44:00 EDT, Tablet, [facility], Partial fill upon patient request [...] day, 0 Refills, Maintenance, 11/12/22 9:59:00 EDT, [place], Partial fill upon patient request if the [...] to hidradenitis by Geovany Mancera M.D. at [facility]. S/p 03/16/2005 wide excision (2 x 4 cm) of hydradenitis of the left axilla by Geovany Mancera M.D. at [facility]. 2Status post right hemithyroidectomy-pathology revealed benign multinodular goiter. Social History Social History Type Response Smoking Status 10 or more cigarette s (1/2 pack or more)/day in last 30 days; Other: since 17 y.o.; entered on: 07/20/21 Sex Patient Care team information Care Team Personnel Name: Christopher Jackson RN Position: S RN Member Role: Primary Care Nurse Name: Fadia Gomez RN Position: S RN Member Role: Primary Care Nurse Name: Richelle Patel MD Position: Reference Physician Member Role: PCP Address: Address: [address] [place] [address] [place] [address]- Name: Alana Phillips RN Position: S RN Member Role: Primary Care Nurse Name: Bernarda Fowler RN Position: [facility] RN Member Role: Primary Care Nurse Name: Vale Greenberg RN Position: S RN Member Role: Primary Care Nurse Care Team Related Persons Name: SANKET MICHAELS Name: TALI HERNADEZ Address: home [address] [place] [id number] Name: HORACIO ANDRADE Address: [place] [address]
--- OUTSIDE RECORDS SUMMARY | 2023-07-04 08:09 | XMS_ITS | Continuity of Care Document ---
Author Name Unknown Organization [facility] Address [address] [place] [address]- Care Team Providers Care Supervisor Home Economics Name Role Phone Lj Hall MD, Richelle Primary Care Phys ician Encounter [facility] Date(s): 12/16/21 - 12/16/[address] [place] [address] [address]- Encounter Diagnosis Knee pain, left(Final) - 12/16/21 Discharge Disposition: A-D/C Home Attending Physician: Pushpa Poon MD Admitting Physician: Pushpa Poon MD Referring Physician: Not on Staff, Referring [...] tablet, 1 Refills, Maintenance, 07/03/21 12:52:00 EST, Tablet,[id number], Partial fill upon cookie... Start Date: 07/03/21 [...] 0 Refills, Maintenance, 07/03/21 12:26:00 EST, Gum, [facility], Partial fill upon patient request ifthe prescription is for a schedule II opioid drug.,... Start Date: 07/03/21 Status: Ordered olanzapine 5 mg oral tablet 5 mg, 1, tablet, By Mouth, 2 times a day, Refills 0, Maintenance, 06/25/21 8:02:00 EDT, ; Start Date: 06/25/21 Status: Ordered OxyCODONE IR Tablet 5 mg, Tablet, By Mouth, Once, STAT, 12/16/21 15:07:00 EDT, Stop date 12/16/21 15:07:00 EDT Start Date: 12/16/21 Stop Date: 12/16/21 Status: Completed Oxygen 0 Refills, Maintenance, 07/20/21 8:16:00 EST, [...] 07/03/21 12:24:00 EST, Route to Pharmacy Electronically, [facility], Partialfill upon patient request if [...] May take additional tab on arrival to [facility] if needed, # 3 tablet, Refills 0, [...] to hidradenitis by Geovany Mancera M.D. at [facility]. S/p 03/16/2005 wide excision (2 x 4 cm) of hydradenitis of the left axilla by Geovany Mancera M.D. at [facility]. 2Status post right hemithyroidectomy-pathology revealed benign multinodular goiter. Results Radiology Reports * Exam Date Time Procedure Performing Provider Status 12/16/21 1:33 PM Knee 1 or 2 Views Left Ekta Horner (Verified) Notes: (Knee 1 or 2 Views Left) Reason For Exam: Pain RESULT: Knee 1 or 2 Views Left Examination: Left knee performed on 12/16/2021. History: Hx of Present Illness: L knee pain and swelling for a couple of months (she has been gettng steroid injections and she sees pain [facility]). Yesterday she fell onto her knee. Area swelling and more painful; Reason: Pain; Clinical Question(s): Fracture Findings: Frontal and lateral views of the left knee are submitted. No fractures or dislocations are demonstrated. There is a moderate-sized joint effusion. IMPRESSION: Moderate joint effusion. There is no acute osseous abnormality. WSN: [id number] Ordering Physician: Radha Cannon Dictated By: Janey Walton MD Dictated Date/Time: 12/16/21 1:35 pm Reviewed By: Janey Walton MD Signed By: Janey Walton MD Signed Date/Time: 12/16/21 1:35 pm Transcribed By: CSOdalis Transcribed Date/Time: 12/16/21 1:35 pm Vital Signs Most recent to oldest [Reference Range]: 1 2 3 Height 160 cm (12/16/21 1:16 PM) 160 cm (12/16/21 12:27 PM) Weight 103.1 kg (12/16/21 1:16 PM) 103.1 kg (12/16/21 12:27 PM) Oxygen Saturation [94-100 %] 93 % *L* (12/16/21 2:37 PM) 91 % 1 *L* (12/16/21 12:27 PM) 97 % (12/16/21 12:24 PM) Pulse Rate [55-90 bpm] 81 bpm (12/16/21 2:37 PM) 90 bpm (12/16/21 12:27 PM) 102 bpm *H* (12/16/21 12:24 PM) Body Mass Index [18.5-24.99] 40.27 *>HHI* (12/16/21 12:27 PM) Blood Pressure [90-138/55-84 mm Hg] 125/75mm Hg (12/16/21 2:37 PM) 135/77mm Hg (12/16/21 12:27 PM) Respiratory Rate [16-30 br/min] 18 br/min (12/16/21 3:14 PM) 16 br/min (12/16/21 12:27 PM) Temperature [96.8-100.4 DegF] 97.8 DegF (12/16/21 2:37 PM) 98.1 DegF (12/16/21 12:27 PM) Mode of Delivery (Oxygen) Room air (12/16/21 2:37 PM) Room air (12/16/21 12:27 PM) Room air (12/16/21 12:24 PM) Blood pressure sites Arm, right (12/16/21 2:37 PM) Arm, right (12/16/21 12:27 PM) Temperature Route Oral (12/16/21 2:37 PM) Oral (12/16/21 12:27 PM) Dry Weight 103.1 kg (12/16/21 1:16 PM) 103.1 kg (12/16/21 12:27 PM) Weight Obtained Via Standing scale (12/16/21 12:27 PM) Dry Weight Obtained Via Standing scale (12/16/21 12:27 PM) 1Result Comment: Rakesh RAMOS aware of 02 sat. Per Pt, her norm is low 90's Social History Social History Type Response Smoking Status 10 or more cigarette s (1/2 pack or more)/day in last 30 days; Other: since 17 y.o.; entered on: 07/20/21 Sex
--- OUTSIDE RECORDS SUMMARY | 2023-07-04 08:09 | XMS_ITS | Continuity of Care Document ---
Author Name Unknown Organization [facility] Address [address] [place] [address]- Care Team Providers Care Premium Auditor Name Role Phone Lj Hall MD, Richelle Primary Care Phys ician Encounter 11/25/22 - 12/01/22 [facility] [address] [place] [address]- Discharge Disposition: [facility] Allergies, Adverse Reactions, Alerts Substance Reaction Severity Status NSAIDs Active Immunizations Given and Recorded Vaccine Date Status Refusal Reason SARS-CoV-2 mRNA (pbkqndb-wfpa-wfzuo) vax 09/03/21 Recorded SARS-CoV-2 (COVID-19) mRNA BNT-162b2 [...] 0 Refills, Maintenance, 11/24/22 8:42:00 EDT, Tablet, [facility], Partial fill upon patient request if the prescription is for aschedule II opioid drug., 165, cm, 11/12/22 9:51:00... Start Date: 11/24/22 Stop Date: 12/24/22 Status: Ordered cefadroxil 500 mg oral capsule 1 capsule = 500 mg, By Mouth, Every 12 hours, for 14 days, # 28 capsule, 0 Refills, Acute 12/08/22 8:35:00 EDT, 11/24/22 8:35:00 EDT, Capsule, [facility], Partial fill upon patient request if the prescription is for a schedule II opioid... Start Date: 11/24/22 Stop Date: 12/08/22 Status: Ordered docusate sodium 100 mg oral tablet = 100 mg, By Mouth, 2 times a day, # 60 tablet, 0 Refills, Maintenance, 11/24/22 8:44:00 EDT, Tablet, [facility], Partial fill upon patient request [...] day, 0 Refills, Maintenance, 11/12/22 9:59:00 EDT, [place], Partial fill upon patient request if the [...] to hidradenitis by Geovany Mancera M.D. at [facility]. S/p 03/16/2005 wide excision (2 x 4 cm) of hydradenitis of the left axilla by Geovany Mancera M.D. at [facility]. 2Status post right hemithyroidectomy-pathology revealed benign multinodular [...] Reference Physician Member Role: PCP Address: Address: [address] [place] [address] [place] [address]- Name: Alana Phillips RN Position: S RN Member Role: Primary Care Nurse Name: Bernarda Fowler RN Position: S RN Member Role: Primary Care Nurse Name: Vale Greenberg RN Position: S RN Member Role: Primary Care Nurse Care Team Related Persons Name: SANKET MICHAELS Name: TALI HERNADEZ Address: home [address] [place] [address] Name: HORACIO ANDRADE Address: [place] [address]
--- OUTSIDE RECORDS SUMMARY | 2023-07-04 08:09 | XMS_ITS | Continuity of Care Document ---
Author Name Unknown Organization [facility] Address [address] [place] [address]- Care Team Providers Care Drywall Applicator Name Role Phone Lj Hall MD, Richelle Primary Care Phys [facility] Encounter [facility] ACCT R [id number] Date(s): 07/30/21 - 09/02/21 [facility] [address] [place] [id number] Attending Physician: Malorie Miner DO Admitting Physician: Malorie Miner DO Allergies, Adverse Reactions, Alerts Substance Reaction Severity [...] tablet, 1 Refills, Maintenance, 07/03/21 12:52:00 EST, Tablet,[id number], Partial fill upon cookie... Start Date: 07/03/21 [...] 0 Refills, Maintenance, 07/03/21 12:26:00 EST, Gum, [facility], Partial fill upon patient request [...] 07/03/21 12:24:00 EST, Route to Pharmacy Electronically, [facility], Partialfill upon patient request if the [...] to hidradenitis by Geovany Mancera M.D. at [facility]. S/p 03/16/2005 wide excision (2 x 4 cm) of hydradenitis of the left axilla by Geovany Mancera M.D. at [facility]. 2Status post right hemithyroidectomy-pathology revealed benign multinodular goiter. Social History Social History Type Response Smoking Status 10 or more cigarette s (1/2 pack or more)/day in last 30 days; Other: since 17 y.o.; entered on: 07/20/21 Sex
--- OUTSIDE RECORDS SUMMARY | 2023-07-04 08:09 | XMS_ITS | Continuity of Care Document ---
Author Name Unknown Organization [facility] ter Address [address] [place] [id number] Care Team Providers Care Gang Knife Fish Chopper Name Role Phone Lj Hall MD, Richelle Primary [facility] Phys [facility] [place] [facility] [place]): [place]23[place]22 - 11/24/[address] [address] Discharge Disposition: A-Transfer VNA/Home Health Attending Physician: Cyril Johns MD Admitting Physician: Cyril Johns MD Referring Physician: Cyril Johns MD Allergies, Adverse Reactions, Alerts Substance Reaction Severity Status NSAIDs Active Immunizations Given and Recorded Vaccine Date Status Refusal Reason SARS-CoV-2 mRNA ([id number]) vax 09/03/21 Recorded SARS-CoV-2 (COVID-19) mRNA BNT-162b2 [...] 0 Refills, Maintenance, 11/24/22 8:42:00 EDT, Tablet, [facility], Partial fill upon patient request if the prescription is for aschedule II opioid drug., 165, cm, 11/12/22 9:51:00... Start Date: 11/24/22 Stop Date: 12/24/22 Status: Ordered cefadroxil 500 mg oral capsule 1 capsule = 500 mg, By Mouth, Every 12 hours, for 14 days, # 28 capsule, 0 Refills, Acute 12/08/22 8:35:00 EDT, 11/24/22 8:35:00 EDT, Capsule, [facility], Partial fill upon patient request if the prescription is for a schedule II opioid... Start Date: 11/24/22 Stop Date: 12/08/22 Status: Ordered docusate sodium 100 mg oral tablet = 100 mg, By Mouth, 2 times a day, # 60 tablet, 0 Refills, Maintenance, 11/24/22 8:44:00 EDT, Tablet, [facility], Partial fill upon patient [...] day, 0 Refills, Maintenance, 11/12/22 9:59:00 EDT, [place], Partial fill upon patient request if the [...] at bedtime Start Date: 04/25/22 Status: Ordered oxyCODONE 5 mg oral tablet See Instructions, PRN, 1-2 tablet By Mouth Every 4 hours, # 84 tablet, Refills 0, Tot. Refills 0, Acute 12/01/22 7:00:00 EDT, Pain , Severe, 11/24/22 8:42:00 EDT, Instructions Replace Required Details, Route to Pharmacy Electronically, AfterSteps... Start Date: 11/24/22 Stop Date: 12/01/22 Status: Ordered OxyCODONE IR Tablet 10 mg, Tablet, By Mouth, Every 3 hours, PRN for Pain , Severe, Routine, 11/23/22 14:32:00 EDT Start Date: 11/23/22 Stop Date: 11/24/22 Status: Discontinued pantoprazole 40 mg oral delayed release tablet [...] opioid drug. Start Date: 11/12/22 Status: Ordered traMADol 50 mg oral tablet See Instructions, PRN Pain , Mild, 1-2 tablet By Mouth Every 6 hours not to exceed 400 mg/day, # 56tablet, 0 Refills, Acute 12/01/22 7:00:00 EDT, 11/24/22 8:43:00 EDT, Tablet, [facility], Partial fill upon patient request if the prescr... Start Date: 11/24/22 Stop Date: 12/01/22 Status: Ordered Trelegy Ellipta 200 mcg-62.5 mcg-25 [...] to hidradenitis by Geovany Mancera M.D. at [facility]. S/p 03/16/2005 wide excision (2 x 4 cm) of hydradenitis of the left axilla by Geovany Mancera M.D. at [facility]. 2Status post right hemithyroidectomy-pathology revealed benign multinodular goiter. Results Radiology Reports * Exam Date Time Procedure Performing Provider Status 11/23/22 2:48 PM Knee 1 or 2 Views Left Ritesh Fox (Verified) Notes: (Knee 1 or 2 Views Left) Reason For Exam: Postop RESULT: Knee 1 or 2 Views Left Knee 1 or 2 Views Left, 2 views, AP and crosstable lateral Reason: Postop; Clinical Question(s): Other:; Implant Position; Special Instructions: Do today in PACU. No flexed knee in the lateral position. Keep leg straight; 2 Views COMPARISON: 12/16/2021 FINDINGS: Status post total knee arthroplasty. The prostheses appear well seated and normally aligned. No fracture or other underlying bony abnormality. There are the expected postoperative changes in the surrounding soft tissues. IMPRESSION: Satisfactory postoperative appearance following total knee arthroplasty. WSN: [id number] Ordering Physician: Chase Lazo Dictated By: Forrest Cosme MD Dictated Date/Time: 11/23/22 3:49 pm Reviewed By: Forrest Cosme MD Signed By: Forrest Cosme MD Signed Date/Time: 11/23/22 3:49 pm Transcribed By: ZOILA Transcribed Date/Time: 11/23/22 3:47 pm Vital Signs Most recent to oldest [Reference Range]: 1 2 3 Weight 111.2 kg (11/23/22 10:21 AM) Oxygen Saturation [94-100 %] 92 % *L* (11/24/22 12:47 PM) 87 % *L* (11/24/22 7:04 AM) 92 % *L* (11/24/22 3:12 AM) Pulse Rate [55-90 bpm] 83 bpm (11/24/22 12:47 PM) 85 bpm (11/24/22 7:04 AM) 78 bpm (11/24/22 3:12 AM) Blood Pressure [90-138/55-84 mm Hg] 148/77mm Hg *H* (11/24/22 12:47 PM) 132/73mm Hg (11/24/22 7:04 AM) 142/85mm Hg *H* (11/24/22 3:12 AM) Respiratory Rate [16-30 br/min] 18 br/min (11/24/22 12:47 PM) 18 br/min (11/24/22 12:45 PM) 18 br/min (11/24/22 9:22 AM) Temperature [96.8-100.4 DegF] 98.5 DegF (11/24/22 12:47 PM) 98.0 DegF (11/24/22 7:04 AM) 97.4 DegF (11/24/22 3:12 AM) Liters per Minute 2 L/min (11/23/22 9:51 PM) 1 L/min (11/23/22 9:00 PM) 1 L/min (11/23/22 8:45 PM) Mode of Delivery (Oxygen) Room air (11/24/22 12:47 PM) Room air (11/24/22 7:04 AM) BiPAP (11/24/22 3:12 AM) Blood pressure sites Arm, left (11/24/22 12:47 PM) Arm, left (11/24/22 7:04 AM) Arm, right (11/24/22 3:12 AM) Temperature Route Oral (11/24/22 12:47 PM) Oral (11/24/22 7:04 AM) Oral (11/24/22 3:12 AM) Dry Weight 111.2 kg (11/23/22 10:21 AM) Weight Obtained Via Standing scale (11/23/22 10:21 AM) Dry Weight Obtained Via Standing scale (11/23/22 10:21 AM) Social History Social History Type Response Smoking Status 10 or more cigarette s (1/2 pack or more)/day in last 30 days; Other: since 17 y.o.; entered on: 07/20/21 Sex History and physical note * Dottie FISH, Miane: MODIFY Event Display: History and Physical Hospital Authored Date: [id number] SURGICAL HISTORY AND PHYSICAL DATE: 11/23/2022 PRIMARY DIAGNOSIS: Osteoarthritis of the left knee. REASON FOR ADMISSION: The patient is being admitted for left total knee arthroplasty with Dr. Johns on 11/23/2022. HISTORY OF PRESENT ILLNESS: The patient is a 52-year-old female presenting today with left-sided knee pain. Her pain has been going on for about 10 years and has been getting progressively worse. Herpain level is 8/10 in intensity at rest, increasing to 10/10 in intensity with weightbearing activities. The patient reports significant activity limitations, which include difficulty walking any prolonged distances, pivoting and stairs. She has difficulty getting in and out of the car and chair and transitioning from sit to stand. The patient has tried Tylenol, physical therapy and corticosteroid injections in order to manage her symptoms unfortunately with minimal effect. She does not ambulate with any assistive device at this time. The patient states that she is now ready for left total knee arthroplasty with Dr. Johns on 11/23/2022. PAST MEDICAL HISTORY: 1. Osteoarthritis of bilateral knees, left being greater than the right. 2. Obesity with BMI of 38.7. 3. Osteoporosis. 4. Raynaud's disease. 5. Charcot arthropathy. 6. Axillary hidradenitis suppurativa. 7. Benign breast tumor. 8. Failed back syndrome. 9. Multinodular goiter. 10. Obstructive sleep apnea, on BiPAP with 18/8 with 1 liter of oxygen. APAP fixed 8. 11. History of CO2 narcosis in 04/2022 where she ended up in ICU, intubated due to BiPAP, not available to her at that time. She states that she has been very compliant with her treatment since. 12. Asthma. 13. Schizoaffective disorder. 14. Adrenal insufficiency. 15. Diabetes type 2, with preoperative A1c 5.9. 16. Hypertension. 17. Anxiety. 18. Depression. 19. Hypothyroidism. 20. COPD with both emphysematous and asthmatic component with chronic hypoxia. The patient did utilize 1 liter of oxygen intermittently throughout the day and at night time. 21. Lung nodules. 22. Previous tobacco abuse, where she quit in 08/2022 PAST SURGICAL HISTORY: 1. Gastric bypass in 2003. 2. Bilateral reconstruction in 2016. 3. Teeth extraction. 4. Knee scope in 2018. 5. Breast biopsy. 6. Partial thyroidectomy. 7. Lumbar spine surgery. 8. Cholecystectomy. 9. Lumbar spine surgery. CURRENT MEDICATION LIST: 1. Albuterol HFA 90 mcg per inhalation 2 puffs as needed for shortness of breath or wheezing. 2. Doxepin 50 mg daily in the morning. 3. Fluticasone 50 mcg nasal spray 1 spray to each nostril twice a day. 4. Lasix 20 mg daily in the morning. 5. Hydrocortisone 20 mg in the morning and 10 mg at 4:00 p.m. 6. Hydroxyzine 50 mg 3 times a day. 7. Zyrtec 5 mg daily at bedtime. 8. Levothyroxine 50 mcg daily in the morning. 9. Olanzapine 10 mg daily at bedtime. 10. Roflumilast 500 mcg daily. 11. Tizanidine 2 mg twice a day as needed. 12. Trelegy Ellipta 200 mcg/62.5 mcg/25 mcg 1 puff daily. 13. Ambien 10 mg as needed for insomnia. ALLERGIES: THE PATIENT HAS ALLERGIES TO NSAIDS, WHICH CAUSES GI UPSET. SOCIAL HISTORY: The patient is on disability. She is and lives at home. She denies any useof tobacco products, alcohol use or illicit drug use. She quit smoking in 2021. She has ROLL OUT MANAGER, which is available to her at 22 hours per week and the patient is looking to increase her hours before andafter surgery. PHYSICIANS: Her primary care provider is Dr. Richelle Pandya and her driver merchandiser is Jenna Carreno, nurse practitioner. REVIEW OF SYSTEMS: The patient denies headache, dizziness, syncope. Denies fever, chills, unexplained weight loss or fatigue. Denies rash or lesions. Denies rhinorrhea, earache, sore throat or swollen glands. Denies cough, shortness of breath or wheezing. Denies chest pain, pressure, palpitations or edema. Denies nausea, vomiting, diarrhea, constipation or abdominal pain. Denies dysuria, urinary urgency or frequency. Denies calf pain. Denies history of blood clots in her legs. Denies numbness or tingling. Denies bruising or bleeding tendencies. PHYSICAL EXAMINATION: VITAL SIGNS: Height 63.5 inches tall, weight 244 pounds, temperature 97.0, blood pressure 116/65, pulse 83. GENERAL: The patient is alert and oriented. Normal insight, affect, and grooming. HEENT: Normocephalic. Conjunctivae pink. Sclerae are anicteric. SKIN: Intact without rash or lesions. Nails without clubbing or cyanosis. NECK: Supple. Trachea midline. No lymphadenopathy. CHEST: Lungs are clear to auscultation bilaterally. Breathing is unlabored. CARDIOVASCULAR: Heart has regular rate and rhythm with normal S1, S2. No murmurs, rubs or gallops appreciated. No JVD. Carotid pulses without bruits. ABDOMEN: Soft, nontender with normal bowel sounds. No hepatosplenomegaly or masses noted. No bruitsappreciated. EXTREMITIES: The patient has negative straight leg raise test bilaterally. Bilateral hips have fullrange of motion with no pain, no trochanteric tenderness. Left knee range of motion is 10-105 degrees Right knee range of motion is 0-120 degrees. Left knee has varus alignment. Moderate effusion, mod erate laxity. Slight crepitus. Motor sensation screening is intact. Calves are supple, nontender. Ankle motion is satisfactory. Pedal pulse palpable bilaterally. Skin on her feet is intact. PREOPERATIVE DIAGNOSTIC DATA: EKG reads normal sinus rhythm at 72 beats per minute. Orthopedic x-rays demonstrate end-stage osteoarthritis of bilateral knees, left being greater than the right. Thereis [id number] articulation, subchondral sclerosis and osteophyte formation. There is no evidence of fracture. LABORATORY DATA: CBC, chemistry panel and coagulation studies within normal limits. A1c 5.9. ASSESSMENT AND PLAN: The patient has advanced osteoarthritis of bilateral knees, left being greaterthan the right and is now scheduled for left total knee arthroplasty with Dr. Craig on 11/23/2022. The patient was seen by the medical consultative preoperative clinic, who stated the patient is at low risk for perioperative cardiovascular and pulmonary complications. The patient was also seen by her driver merchandiser who stated that the patient is at intermediate risk for pulmonary complications. Postoperatively, the patient was instructed to continue with her BiPAP and her incentive spirometry and her inhalers. The patient's driver merchandiser who stated that she had no absolute contraindications for total knee replacement from pulmonary point of view. The patient will receive intravenous tranexamic acid. She will be on Eliquis 2.5 mg p.o. b.i.d. x30 days postoperatively for DVT prophylaxis.She will not receive any Celebrex due to her allergies. We will monitor her point of cares and order sliding scale insulin. We will monitor end-tidal CO2 and O2 levels and utilize BiPAP postoperatively. The patient will receive stress dose steroids. She will be on cefadroxil postoperatively as well. Discharge plans will be to home the next day. The patient is not a candidate for same day discharge. The patient has been counseled regarding the risks and benefits of proposed surgery. Her questions have been answered and she acknowledges understanding. The patient wishes to proceed with surgery and signed consents. No prescriptions were given to her at this office visit. The patient will require a prescription for Eliquis, Colace and pain medications filled at [facility] prior to discharge. She will receive 1-week of in-home physical therapy postoperatively. CONTACTS: Her ROLL OUT MANAGER Ching with a cell phone number [phone]. Dictated by: Maine Sinclair N.P. Signing Clinician: Cyril Johns M.D. Dictated: 11/22/2022 11:32:15 Transcribed: 07:54:02 AM Transcribed by: SHIRLEY DocID: [id number] PRELIMINARY REPORT UNLESS MANUALLY/ELECTRONICALLY SIGNED Hospital Progress note * Coty Avila RN, I: PERFORM, SIGN, VERIFY Event Display: Progress Note Hospital Authored Date: [id number] Patient: KETAN SOLIZ Age: 52 years Sex: Female : 1970 Associated Diagnoses: None Author: Coty Avila RN, I Findings Problem Related to Alteration in Musculoskeletal : Alteration in Musculoskeletal Func/new 11/24/2022 8:00 EDT Alteration in Musculoskeletal Related to Orthopedic Procedure, Total joint replacement, Other: L TKA w/ Dr. Johns on 11/23 Goals & Outcomes, Musculoskeletal Affected extremity will maintain color/motion/sensation, Pt able to perform ADL's to best of ability, Pt demonstrates precautions/exercise/ transfers per protocol, Pt will ambulate safely with assistive device, Pt will be free from complications of immobility, Pt will demonstrate ability to participate in ADL's, Pt will report acceptable level of comfort/painrelief Interventions, Musculoskeletal Monitor patients ambulation status, monitor Color/Motion/Sensation, Assist with repositioning, Encourage deep breathing & coughing exercises, Notify MD immediately if tissue perfusion deteriorates, Obtain assistive devices as needed, Teach & Encourage use of Incentive spirometer, Teach Pt/caregiver on ADL's & adaptive equipment, Teach Pt/caregiver on exercises, Teach pt/caregiver on use of pain scale, Teach Pt/caregiver complications of immobility BH Goals/Interventions, Musculoskeletal Yes Musculoskeletal, Problem Start 11/24/2022 2:39 Reviewed Plan with, Musculoskeletal Patient Patient Progression, Musculoskeletal Pt progressing according to plan . Narrative/Incidental Pt alert and oriented x3. Lungs clear, dim bases, no SOB or CP at this time, BIPAP at bedside and sats >95%, pt reports CHAPMAN as her baseline. Abdomen large and round, softly distended with +bs, tolerating po well, LBM 4/3. Pt with hx neurogenic bladder at baseline, monitor urine output, voided inbathroom and will bladder scan as per protocol. Will continue to monitor pain level and musculoskeletal status. Refer to biophysical assessment for further details. . Evaluation P#1: Left total knee replacement surgery I: as per plan of care E: Pt rating pain 5/10 this am, oxycodone 10mg po prn with + effect on pain. Left knee with aquaceldressing intact, +pp, +cms and strong dorsi/plantar flexion noted, brisk cap refill. Immobilizer onand ice applied. Compression boots and eliquis for DVT proph. OOB with min assist and walker. Plan home when cleraed by OT/PT. . * Clarissa Marin: PERFORM, SIGN, VERIFY Event Display: Progress Note Hospital Authored Date: Patient: KETAN SOLIZ Age: 52 years Sex: Female : 1970 Associated Diagnoses: None Author: Clarissa Marin Findings Problem Related to Alteration in Musculoskeletal : Alteration in Musculoskeletal Func/new 11/24/2022 2:00 EDT Alteration in Musculoskeletal Related to Orthopedic Procedure, Total joint replacement, Other: L TKA w/ Dr. Johns on 11/23 Goals & Outcomes, Musculoskeletal Affected extremity will maintain color/motion/sensation, Pt able to perform ADL's to best of ability, Pt demonstrates precautions/exercise/ transfers per protocol, Pt will ambulate safely with assistive device, Pt will be free from complications of immobility, Pt will demonstrate ability to participate in ADL's, Pt will report acceptable level of comfort/painrelief Interventions, Musculoskeletal Monitor patients ambulation status, monitor Color/Motion/Sensation, Assist with repositioning, Encourage deep breathing & coughing exercises, Notify MD immediately if tissue perfusion deteriorates, Obtain assistive devices as needed, Teach & Encourage use of Incentive spirometer, Teach Pt/caregiver on ADL's & adaptive equipment, Teach Pt/caregiver on exercises, Teach pt/caregiver on use of pain scale, Teach Pt/caregiver complications of immobility, Teach Pt/caregiver techniques to increase mobility, Teach Pt/caregiver on safety precautions, [place] Pt/caregiver to Total Knee Replacement protocol Goals/Interventions, Musculoskeletal Yes Musculoskeletal, Problem Start 11/24/2022 2:39 Reviewed Plan with, Musculoskeletal Patient Patient Progression, Musculoskeletal Plan Initiation . Nursing Data Vital Signs : VITAL SIGNS SECTION 11/23/2022 21:51 EDT Temperature 97.9 DegF Temperature Route Oral Pulse Rate 70 bpm Respiratory Rate 20 br/min Systolic Blood Pressure 150 mm Hg H Diastolic Blood Pressure 79 mm Hg Blood pressure sites Arm, right Mean Arterial Pressure 103 mm Hg Pulse Pressure 71 mm Hg Oxygen Saturation 98 % Liters per Minute 2 L/min Mode of Delivery (Oxygen) Nasal cannula . Narrative/Incidental Pt s/p L total hip arthroplasty with Dr. Johns on 11/23, POD#0. Pt is A+Ox3, denies CP or SOB. Lungs are clear to auscultation bilaterally. BIPAP and O2 monitor in place overnight. IS education provided and encouraged 10x per hour, pt demonstrated accurately with +effort. Pt tolerating diabetic carb counting diet, denies N/V, +BS4Q, abdomen is s/nt/nd, LBM 11/22. Pt voiding in bathroom. Pt educated on all intensive care medicine specialist, pt verbalized understanding. Cboots in place bilaterally and plan for eliquis for DVT prophylaxis. Pt educated on safety and fall precautions. Bed in low locked position, bed alarm on for safety, hourly rounding, and call gatica within reach. P: Alteration in musculoskeletal status I: See interventions listed in care plan above E: +CMS +DF +PF +PP to LLE. Aquacel dsg to L knee, c/d/i. Ice to L knee for comfort. Pt OOB 1 assist with wheeled walker. Knee immobilzizer in use when OOB. Ankle pumps encouraged. Pt endorsing up to9/10 pain this evening, medicated with scheduled tylenol and oxycodone 10mg with +relief. Pt progressing along plan of care. . Discharge Information Case Management Discharge Plan : Case Management Discharge Plan Data 11/23/2022 12:29 EDT Discharge Level of Care at Discharge Homehealth/VNA Name of Agency #1 [facility] Religious Education Teacher # Service Categories #1 Physical Therapy Service Comments #1 [facility] will contact you to set up a visit time after discharge. Please call [phone] if you don't hear from them. Pulmonary Rehab Discharge : Pulmonary Rehab Discharge Status 11/24/2022 0:15 EDT CPAP/BiPAP Mask Type Full CPAP/BiPAP Mask Size Small 11/23/2022 23:43 EDT CPAP/BiPAP Mask Type Full CPAP/BiPAP Mask Size Small Rehabilitation Discharge : Rehab Discharge Index 11/23/2022 14:59 EDT Full chart review completed Not Done: Task Duplication (Not Done) Note * Coty Avila RN, I: PERFORM Event Display: Discharge/Transfer Note Hospital Authored Date: [id number] Nursing Discharge Note Entered On: 11/24/2022 12:54 EDT Performed On: 11/24/2022 12:54 EDT by Coty Avila RN, I Nursing Discharge Note 2 Discharge Time : 11/24/2022 13:00 EDT Discharge Level of Care at Discharge : Homehealth/VNA Patient Left Unit Via : Wheelchair Patient Accompanied Off Unit with : Significant other DC Instructions Provided & Signed by Pt : Yes Patient Understands D/C Instructions : Yes Patient Instructions Discharge Signed : Yes Did Pt have Specialty Bed or Wound Vac : No Austin RAMOS, Coty Bernal - 11/24/2022 12:54 EDT * Doyle FISH, Amy Manuel: PERFORM, SIGN, VERIFY, MODIFY, SIGN Event Display: Discharge/Transfer Note Hospital Authored Date: [id number] Patient: KETAN SOLIZ Age: 52 years Sex: Female : 1970 Associated Diagnoses: None Author: Doyle FISH, Amy Manuel Discharge Summary Admission Date: 11/23/22 Discharge Date: 11/24/22 Admitting Diagnosis: osteoarthritis left knee Discharge Diagnosis: osteoarthritis left knee Final Diagnosis : osteoarthritis left knee Procedure: arthroplasty left knee Surgeon: Dr. Johns Past Medical History: 1. Osteoarthritis of bilateral knees, left being greater than the right. 2. Obesity with BMI of 38.7. 3. Osteoporosis. 4. Raynaud's disease. 5. Charcot arthropathy. 6. Axillary hidradenitis suppurativa. 7. Benign breast tumor. 8. Failed back syndrome. 9. Multinodular goiter. 10. Obstructive sleep apnea, on BiPAP with 18/8 with 1 liter of oxygen. APAP fixed 8. 11. History of CO2 narcosis in 04/2022 where she ended up in ICU, intubated due to BiPAP, not available to her at that time. She states that she has been very compliant with her treatment since. 12. Asthma. 13. Schizoaffective disorder. 14. Adrenal insufficiency. 15. Diabetes type 2, with preoperative A1c 5.9. 16. Hypertension. 17. Anxiety. 18. Depression. 19. Hypothyroidism. 20. COPD with both emphysematous and asthmatic component with chronic hypoxia. The patient did utilize 1 liter of oxygen intermittently throughout the day and at night time. 21. Lung nodules. 22. Previous tobacco abuse, where she quit in 08/2022 Orthopedics: The patient is status post left total knee arthroplasty. It is anticipated that she will be discharged home today pending PT, OT clearance. The patient is doing well from a surgical standpoint. Her incision is healing well. Neurovascular status is intact. Calves are supple and nontender. Making good progress with Physical Therapy and Occupational therapy. Supervision with ambulation walking 25 feet , ambulating with a walker. ROM pending. Pain is well controlled on her current regimen, Acetaminophen 650 mg every 6 hours and Oxycodone 5-10mg every 4 hours as needed, Tramadol 50mg every 6 hours as needed. Patient is tolerating this well. She will be sent home with a prescription for this medication. Prescription: Tramadol 50 mg tablet. Take 1-2 tablets every 6 hours as needed for pain x 7 days. # 56 tablet. Oxycodone IR 5mg tablet. Take 1-2 tablets every 4 hours as needed for pain x 7 days. # 84 tablet. Hospital course: Relatively uneventful medically. The patient struggled with pain immediately after surgery and received multiple doses of IVP Dilaudid. Oxycodone was increased to every 3 hours and one time dose IV Tordal given POD 1. Pain is controlled now. Patient is voiding spontaneously. + bowel sounds. No other issues. No calf tenderness. Patient utilized a Bipap during hospital stay. Current Medication List: Acetaminophen (acetaminophen 325 mg oral tablet) 650 Milligram By Mouth Every 6 hours may take OTC.not to exceed 4000 mg/day Albuterol (Albuterol (Eqv-Proventil HFA) 90 mcg/inh inhalation aerosol) 2 puff(s) Inhalation Every 6 hours as needed Wheezing/Shortness of Breath apixaban (apixaban 2.5 mg oral tablet) 1 tab(s) 2.5 Milligram By Mouth 2 times a day for 30 Days Cefadroxil (cefadroxil 500 mg oral capsule) 1 capsule 500 Milligram By Mouth Every 12 hours for 14 Days Docusate (docusate sodium 100 mg oral tablet) 100 Milligram By Mouth 2 times a day for 30 Days Doxepin (doxepin 50 mg oral capsule) TAKE 1 CAPSULE BY MOUTH EVERY DAY Eszopiclone By Mouth Daily at bedtime Fluticasone Nasal (fluticasone 50 mcg/inh nasal spray) 1 spray(s) Nares, Both 2 times a day fluticasone/umeclidinium/vilanterol (Trelegy Ellipta 200 mcg-62.5 mcg-25 mcg/inh inhalation powder)1 puff(s) Inhalation Daily at the same time every day Furosemide (furosemide 20 mg oral tablet) 20 Milligram 1 tablet By Mouth Daily HydroCORTisone (HydroCORTisone 10 mg oral tablet) 2 tablets by mouth every Morning & 1 tablet at 4PM HydrOXYzine (hydrOXYzine pamoate 50 mg oral capsule) 1 capsule 50 Milligram By Mouth 3 times a day levocetirizine (levocetirizine 5 mg oral tablet) 1 tab(s) 5 Milligram By Mouth Daily in PM Levothyroxine (levothyroxine 0.05 mg oral tablet) 1 tab(s) 50 Microgram By Mouth Daily Olanzapine (olanzapine 10 mg oral tablet) 10 Milligram 1 tablet By Mouth Daily at bedtime Oxycodone (oxyCODONE 5 mg oral tablet) See Instructions as needed 1-2 tablet By Mouth Every 4 hoursPain , Severe Pantoprazole (pantoprazole 40 mg oral delayed release tablet) 40 Milligram By Mouth Daily for 30 Days Polyethylene Glycol 3350 (MiraLax Powder) 1 pack/packet 17 gram By Mouth Daily as needed Constipation roflumilast (roflumilast 500 mcg oral tablet) 1 tab(s) 500 Microgram By Mouth Daily Senna (senna 187 mg oral tablet) 1 tab(s) 8.6 Milligram By Mouth Daily at bedtime as needed as needed for constipation Tizanidine (tiZANidine 2 mg oral tablet) 2 Milligram 1 tablet By Mouth 2 times a day as needed as needed for muscle spasm Tramadol (traMADol 50 mg oral tablet) See Instructions as needed Pain , Mild 1-2 tablet By Mouth Every 6 hours. not to exceed 400 mg/day Allergies: Allergies (Active and Proposed Allergies Only) NSAIDs (Severity: Unknown severity, Onset: Unknown) Current Labs: Last 24 Hours Basic Metabolic Panel: Hematology: Sodium: 138 mmol/L (11/24/22) Hgb: 12.2 Gm/dL (11/24/22) Potassium (POC): 5.0 mmol/L (11/24/22) Hemoglobin A1C (Monitoring): ------ Phosphorus: ------ WBC: 15.5 k/mm3 (11/24/22) Magnesium: ------ Platelets: 347 k/mm3 (11/24/22) BUN (POC) POC Cartridge: 9 mg/dL (11/24/22) INR Level: ------ Creatinine-Blood: 0.8 mg/dL (11/24/22) Creatinine Clearance: ------ Additional - Last 24 Hours Abs. NRBC: 0.0 k/mm3 (11/24/22) Anion Gap: 10 (11/24/22) Bicarbonate Level: 24 mmol/L (11/24/22) BUN: BUN (11/24/22) Chloride: 104 mmol/L (11/24/22) Creatinine, Blood: Creatinine, Blood (11/24/22) Estimated GFR Creatinine: 88 ML/MIN/1.73 M2 (11/24/22) Glucose, POC: Glucose, POC (11/24/22) Hct: 39.5 % (11/24/22) MCH: 26.4 pg (11/24/22) MCHC: 30.9 g/dL (11/24/22) MCV: 85.5 femtoliters (11/24/22) MPV: 9.8 femtoliters (11/24/22) Nucleated RBC (Automated): 0.0 #/100 WBC'S (11/24/22) RBC: 4.62 m/mm3 (11/24/22) RDW-SD: 59.4 femtoliters (11/24/22) DVT prophylaxis Eliquis 2.5mg p o bid x 30 days Disposition: Anticipates being discharged today to home. Follow up at [facility] on 12/07/22 10:00am, patient is aware of this. The patient has an Aquacel dressing in place. She may shower with it and the dressing can be discontinued on POD 14. Case discussed with Dr. Johns Discharge Information Admission Date: 11/23/2022 Principal Discharge Diagnosis Discharge Plan Discharge Disposition Discharge: home with VNA. Home Health Face to Face I certify that this patient is under my care and that I or an allowed non- physician practitioner working with me, had a [id number] encounter with the patient on this date: 11/24/2022. The encounter with the patient was in whole, or in part, for the following medical condition, whichis the primary reason for home health care: Osteoarthritis. Physical Therapy: Functional mobility training, Home exercise program to strengthen, increase ROM, Falls prevention training. Homebound due to: Inability to leave home without assistance/supervision, Inability to ambulate without assistance, Pain, decreased strength, and endurance, Unsteady gait. Physician Signature: Nat ELKINS, Cyril Avila RN, Coty Bernal: PERFORM Event Display: Patient Education/Instruction Authored Date: Inpatient Adult Discharge Instructions [address] [address] Name: KETAN FRIEND : 1970 Visit: 11/23/2022 09:55:00 Current Date: 11/24/2022 09:51 Account: [id number] Inpatient Adult Discharge Instructions We would like to thank you for allowing us to assist you with your healthcare needs. The following includes patient education materials and information regarding your injury/illness. Our entire staffstrives to provide an excellent experience for our patients and their families. PLEASE ENSURE YOU FOLLOW-UP PER THE INSTRUCTIONS BELOW! ?? YOUR OPINION IS IMPORTANT TO US! Please complete the survey you may receive by mail or email. Your feedback will be used to make improvements to the healthcare experiences of our patients and their families. Surveys are administered by [employer] ?? If further treatment with your primary care physician or another doctor is recommended, it is important for you to keep the appointment. Call your primary care physician or return to the Emergency Department immediately if your condition worsens, fails to improve, or new symptoms develop. If you need to find a doctor, you can call [facility] for a referral at [phone] or toll free at [phone] or log in to [email or web address].. ?? You can view and manage your care through the patient portal or by using a health care kimberly of your choosing. [employer] is a website that allows you to securely view your medical information including your hospital discharge summary, office visit summaries, medications and follow-up visits. You can also request appointments, renew medications, and request access to your medical information using a health care kimberly of your choosing, or just ask a question. You can enroll at [email or web address] or register during your next office visit. You have been discharged from [facility], Patient Care Unit: SW7. If you have any questions regarding these instructions after you leave, please call us and we will be happy to assist you. [facility] Your Care Team Attending Physician Nat ELKINS, Cyril Jacobo Discharging Providers Doyle FISH, Amy Manuel Reason for Admission LEFT KNEE OA [id number] Your Diagnosis Osteoarthritis Tests Performed Below is a partial list of the tests performed during your hospitalization. You may have had other tests and procedures not included in this list. Please discuss all test results with your provider. BUN CBC Creatinine Electrolytes GLUCOSE POC K Level XR Knee 1 or 2 Views Left Primary Care Provider Richelle Patel MD Advance Directive Health Care Proxy on File Yes - Health Care Proxy Discharge Vitals Temperature: 98 DegF Weight: 111.2 kg Pulse Rate: 85 bpm ?? Respiratory Rate: 18 br/min ?? Systolic Blood Pressure: 132 mm Hg ?? Diastolic Blood Pressure: 73 mm Hg ?? Oxygen Saturation:??87 %??Low ?? Studies Pending All tests and labs ordered during this hospital stay have been completed unless listed below. Please discuss all pending results with your provider listed above in these instructions. ?? BUN CBC Creatinine Electrolytes What to do next Instructions From Your Doctor Discharge Orders Scheduled Follow-Up Appointments Tuesday 11:00 AM EDT ?? With: Dorie ELKINS, Chris Sim Where: [place] [address]- You Need to Schedule the Following Appointments Follow Up with??[facility] When??Within 1 to 2 weeks Why: Follow-up appointments are as scheduled--12/07 at 1000am, and 01/05 at 1000am Where: Discharge Medications FRIENDKETAN :1970 Visit Date:11/23/2022 Medications: Please continue your medications until treatment is completed or stopped by your provider. Medications not listed below should be discontinued. Discuss any questions related to medications with your provider. What How Much When Instructions Next Dose New Acetaminophen (acetaminophen 325 mg oral tablet) 650 Milligram Oral Every 6 hours may take OTC. not to exceed 4000 mg/ day ?? New Pantoprazole (pantoprazole 40 mg oral delayed release tablet) 40 Milligram Oral Daily Duration: 30 Days Pickup at [facility] New Polyethylene Glycol 3350 (MiraLax Powder) 17 gram Oral Daily as needed for Constipation New Senna (senna 187 mg oral tablet) 1 tab(s) Oral Daily at Bedtime as needed for as needed for constipation Changed roflumilast (roflumilast 500 mcg oral tablet) 1 tab(s) Oral Daily Unchanged Albuterol (Albuterol (Eqv-Proventil HFA) 90 mcg/ inh inhalation aerosol) 2 puff(s) Inhalation Every 6 hours as needed for Wheezing/Shortness of Breath Unchanged apixaban (apixaban 2.5 mg oral tablet) 1 tab(s) Oral Twice a day Duration: 30 Days Pickup at [place] [address] Unchanged Cefadroxil (cefadroxil 500 mg oral capsule) 1 capsule Oral Every 12 hours Duration: 14 Days Pickup at [place] [address] Unchanged Docusate (docusate sodium 100 mg oral tablet) 100 Milligram Oral Twice a day Duration: 30 Days Pickup at [place] [address] Unchanged Doxepin (doxepin 50 mg oral capsule) TAKE 1 CAPSULE BY MOUTH EVERY DAY ?? Unchanged Eszopiclone Oral Daily at Bedtime Unchanged Fluticasone Nasal (fluticasone 50 mcg/ inh nasal spray) 1 spray(s) Nares, Both Twice a day Unchanged fluticasone/ umeclidinium/ vilanterol (Trelegy Ellipta 200 mcg-62.5 mcg-25 mcg/ inh inhalation powder) 1 puff(s) Inhalation Daily at the same time every day ?? Unchanged Furosemide (furosemide 20 mg oral tablet) 1 tab(s) Oral Daily Unchanged HydroCORTisone (HydroCORTisone 10 mg oral tablet) 2 tablets by mouth every Morining & 1 tablet at 4PM ?? Unchanged HydrOXYzine (hydrOXYzine pamoate 50 mg oral capsule) 1 capsule Oral 3 times a day Unchanged levocetirizine (levocetirizine 5 mg oral tablet) 1 tab(s) Oral Daily in PM Unchanged Levothyroxine (levothyroxine 0.05 mg oral tablet) 1 tab(s) Oral Daily Unchanged Olanzapine (olanzapine 10 mg oral tablet) 1 tab(s) Oral Daily at Bedtime Unchanged Oxycodone (oxyCODONE 5 mg oral tablet) See instructions 1-2 tablet By Mouth Every 4 hours ?? Pickup at [facility] 3 Unchanged Tizanidine (tiZANidine 2 mg oral tablet) 1 tab(s) Oral Twice a day as needed for as needed for muscle spasm Unchanged Tramadol (traMADol 50 mg oral tablet) See instructions 1-2 tablet By Mouth Every 6 hours not to exceed 400 mg/ day ?? Pickup at [facility] Pharmacy Information [facility] 3: [address], [place] [id number] [phone] ?? What How Much When Comments Stop Taking Oxygen Stop Taking Zolpidem (zolpidem 10 mg oral tablet) 1 tab(s) Oral Daily at Bedtime as needed for as needed for insomnia Test Results Below is a partial list of the most recent Laboratory test results done prior to this discharge. You may have had other tests and procedures not included in this list. Please discuss all test resultswith your provider. BUN (11/24/2022) ???BUN - 9 mg/dL CBC (11/24/2022) ???WBC - 15.5 k/mm3???RBC - 4.62 m/mm3???Hgb - 12.2 Gm/dL???Hct - 39.5 %???MCV - 85.5 femtoliters???MCH - 26.4 pg???MCHC - 30.9 g/dL???Platelet Count - 347 k/mm3???RDW-SD - 59.4 femtoliters???MPV - 9.8 femtoliters???Nucleated RBC (Automated) - 0.0 #/100 WBC'S???Abs. NRBC - 0.0 k/mm3 Creatinine (11/24/2022) ???Creatinine-Blood - 0.8 mg/dL???Estimated GFR Creatinine - 88 ML/MIN/1.73 M2 Electrolytes (11/24/2022) ???Sodium - 138 mmol/L???Potassium - HEMOLYZED???Chloride - 104 mmol/L???Bicarbonate Level - 24 mmol/L???Anion Gap - 10 GLUCOSE POC (11/24/2022) ???Glucose, POC - 113 mg/dL K Level (11/24/2022) ???Potassium - 5.0 mmol/L Allergies (NKA means No Known Allergies) NSAIDs Problems Active Problems??(13) Axillary hidradenitis supporativa?? Benign tumor of breast?? Failed back syndrome?? History of bariatric surgery?? Knee osteoarthritis?? Lumbar facet joint pain?? Morbid obesity due to excess calories?? Non-toxic multinodular goiter?? Obstructive sleep apnea?? Other Pain Disorders Related to Psychological Factors?? Sacroiliac joint pain?? Severe obesity (BMI 35.0-39.9) with comorbidity?? Status post lumbar surgery?? Education Materials Below is the list of Educational Leaflet Providered with your Discharge Instructions. Total Knee Replacement Discharge Instructions?? Valuables and Belongings I fully understand and agree that [facility] accepts no responsibility for all my personal property including clothing, toilet articles, radios, jewelry, dentures, hearing aids, rings, money, or any other property that is in my possession or is brought to me after admission. I understand certain valuables may be placed in a hospital safe for a short period of time. I understand that the hospital is not liable for loss or damage due to accident, fire, or other natural occurrence while said property is in the safe. I accept full responsibility for any personal property that I keep with me, and will not hold the hospital responsible in case of loss or disappearance. I acknowledge that i have been encouraged to send valuables and belongings home. ?? Review of Valuable and Belonging List: With patient Disposition of Belongings: Other: closet Date for Pt to Sign Valuables/Belongings: 11/23/22 21:52:00 ?? Other Discharge Information ? Case Management Discharge Plan?? Discharge Plan?? Discharge Agency Information?? Discharge Level of Care at Discharge: Homehealth/VNA Name of Agency #1: [facility] ?? Agency Religious Education Teacher #1: [phone] ?? Service Categories #1: Physical Therapy ?? Service Comments #1: [facility] will contact you to set up a visit time after discharge. Please call [phone] if you don't hear from them. ?? Pulmonary Rehab Status?? Pulmonary Rehab Discharge Status?? CPAP/BiPAP Mask Type: Full CPAP/BiPAP Mask Size: Small Respiratory Rate: 18 br/min ? Common Emergency Awareness Tips IS IT A STROKE? Act FAST and Check for these signs: FACE Does the face look uneven? ARM Does one arm drift down? SPEECH Does their speech sound strange? TIME Call at any sign of stroke ?? Heart Attack Signs Chest discomfort: Most heart attacks involve discomfort in the center of the chest and lasts more than a few minutes, or goes away and comes back. It can feel like uncomfortable pressure, squeezing, fullness or pain. Discomfort in upper body: Symptoms can include pain or discomfort in one or both arms, back, neck, jaw or stomach. Shortness of breath: With or without discomfort. Other signs: Breaking out in a cold sweat, nausea, or lightheaded. Remember, MINUTES DO MATTER. If you experience any of these heart attack warning signs, call to get immediate medical attention! ?? Smoking can increase your chances of developing chronic health problems and can cause harmful effects to other family members in your house. If you smoke, you are strongly encouraged to quit. Please call [facility] at [phone] or [phone] ([phone]) or log in to [email or web address] for referrals to smoking cessation programs. ?? The National Suicide Prevention Hotline is available 14/03 if you or someone you know needs to find a reason to keep living. By calling 5-292-819-admetricks (3285) you'll be connected to a skilled, trained counselor at a crisis center in your area. INPATIENT DISCHARGE INSTRUCTIONS SIGNATURE PAGE FRIENDKETAN Location:[facility] Registration Date and Time:11/23/2022 09:55 EDT Primary Care Physician: Richelle Patel MD, I FRIEND, KETAN, have received the above patient education materials/instructions and have verbalized understanding. If ambulance or transport services are being used I further acknowledge being given a choice of service. ?? If you need to contact me, please call me at this number: . Patient/Field Seismologist Name: Patient/Field Seismologist Signature: Relationship to Patient: Witness Name/Signature: Date: * Austin RAMOS, Coty I: PERFORM Event Display: Patient Education Leaflets Authored Date: [id number] Total Knee Replacement Discharge Instructions ?? 667 Total Knee Replacement Discharge Instructions ??? Please read and review your Total Knee Replacement Book for detailed information ??? Your appetite may be decreased but try to maintain a good balanced diet ?? Ice and elevation ?Ice is important to help keep swelling down. ?Keep elevated as much as possible. ?Ice the knee 4 times a day for 20 minutes each time. Be sure not to put the ice/ice pack directly on your skin. Use a dish towel or something similar between the ice and your skin. ??? Moving ? Get up and walk frequently. ??? Do 20 ankle pumps every hour. ??? Complete your exercises 4times a day, bending and straightening your knee ??? Begin exercises the evening you go home ??? Moving is especially important. This helps to prevent blood clots. Take short frequent walks. ? Wear your knee brace when walking until your surgeon or physical therapist tells you to stop. ??? You may sleep with or without the brace and sleep anyway you are comfortable. ??? Place a pillow underthe ankle/lower leg when lying down to help with extension of your knee. ??? Do not put a pillow under your knee ??? Continue to move your foot up and down, this exercise helps to prevent blood clotsand to help reduce swelling in your knee ??? No driving until approved by your surgeon ?? Incision ?Your incision is closed with absorbable stitches and surgical glue. ?The dressing iswaterproof. You may shower the next day. ??? You may develop some discoloration around your incision (yellowish or bruising) ??? Your dressing will stay on for 1-2 weeks ?You cannot go in a bath, pool, ocean, pond, simmons or jacuzzi for 6 weeks. This is to reduce your risk of infection ? You may have some numbness around the incision. This is normal and will improve with time. Some patients have numbness that does not completely go away. ?? When to call the Surgeon?CALL [phone] ?If you have shortness of breath or chest pain, call 911 or go to the nearest emergency department. ??? If you have drainage and/or redness around your wound. ?If you have a fever greater than 101.5 (38.5 degrees Celsius). ?If you have persistent calf pain or swelling (This couldbe a blood clot). ??? If your pain is worsening. ? If you have any difficulty with urination or burning with urination ? XR Knee - left 1 or 2 Views * BHSPRAY mccoy S: GARRISON Cosme MD, Forrest H: VERIFY Event Display: Result: Authored Date: [id number] Knee 1 or 2 Views Left, 2 views, AP and crosstable lateral Reason: Postop; Clinical Question(s): Other:; Implant Position; Special Instructions: Do today in PACU. No flexed knee in the lateral position. Keep leg straight; 2 Views COMPARISON: 12/16/2021 FINDINGS: Status post total knee arthroplasty. The prostheses appear well seated and normally aligned. No fracture or other underlying bony abnormality. There are the expected postoperative changes in the surrounding soft tissues. IMPRESSION: Satisfactory postoperative appearance following total knee arthroplasty. WSN: [id number] Ordering Physician: Chase Lazo Dictated By: Forrest Cosme MD Dictated Date/Time: 11/23/22 3:49 pm Reviewed By: Forrest Cosme MD Signed By: Forrest Cosme MD Signed Date/Time: 11/23/22 3:49 pm Transcribed By: ZOILA Transcribed Date/Time: 11/23/22 3:47 pm Patient Care team information Care Team Personnel Name: Christopher Jackson RN Position: S RN Member Role: Primary Care Nurse Name: Fadia Gomez RN Position: S RN Member Role: Primary Care Nurse Name: Richelle Patel MD Position: Reference Physician Member Role: PCP Address: Address: [address] [place] [address] Name: Alana Phillips RN Position: S RN Member Role: Primary Care Nurse Name: Bernarda Fowler RN Position: [facility] RN Member Role: Primary Care Nurse Name: Vale Greenberg RN Position: S RN Member Role: Primary Care Nurse Care Team Related Persons Name: SANKET MICHAELS Name: TALI HERNADEZ Address: home [address] [place] [id number] Name: HORACIO ANDRADE Address: [place] [address]
--- OUTSIDE RECORDS SUMMARY | 2023-07-04 08:09 | XMS_ITS | Continuity of Care Document ---
Author Name Unknown Organization [facility] Address [address] [place] [address]- Care Team Providers Care City Editor Name Role Phone Lj Hall MD, Richelle Primary Care Phys ician Encounter [facility] Date(s): 02/23/22 - 03/25/[address] [address] Allergies, Adverse Reactions, Alerts Substance Reaction Severity [...] tablet, 1 Refills, Maintenance, 07/03/21 12:52:00 EST, Tablet,[id number], Partial fill upon cookie... Start Date: 07/03/21 [...] 0 Refills, Maintenance, 07/03/21 12:26:00 EST, Gum, [facility], Partial fill upon patient request [...] 07/03/21 12:24:00 EST, Route to Pharmacy Electronically, [facility], Partialfill upon patient request if [...] tab on arrival to [facility] if needed, # 3 tablet, Refills 0, [...] by Geovany Mancera M.D. at [facility]. S/p 03/16/2005 wide excision (2 x 4 cm) of hydradenitis of the left axilla by Geovany Mancera M.D. at [facility]. 2Status post right hemithyroidectomy-pathology revealed benign multinodular goiter. Social History Social History Type Response Smoking Status 10 or more cigarette s (1/2 pack or more)/day in last 30 days; Other: since 17 y.o.; entered on: 07/20/21 Sex
--- OUTSIDE RECORDS SUMMARY | 2023-07-04 08:09 | XMS_ITS | Continuity of Care Document ---
Author Name Unknown Organization [facility] Address [address] [place] [address]- Care Team Providers Care Professional Fighter Name Role Phone Lj Hall MD, Richelle Primary Care Phys [facility] Encounter [facility] [id number] Date(s): 11/12/22 - 12/12/22 [facility] [address] [place] [address]- Attending Physician: Flor Gee Admitting Physician: AdmtrFlor Referring Physician: Admtr, Ar8 Allergies, Adverse Reactions, Alerts Substance Reaction Severity Status NSAIDs Active Immunizations Given and Recorded Vaccine Date Status Refusal Reason SARS-CoV-2 mRNA ([id number]) vax 09/03/21 Recorded SARS-CoV-2 (COVID-19) mRNA BNT-162b2 [...] 0 Refills, Maintenance, 11/24/22 8:42:00 EDT, Tablet, [facility], Partial fill upon patient request if the prescription is for aschedule II opioid drug., 165, cm, 11/12/22 9:51:00... Start Date: 11/24/22 Stop Date: 12/24/22 Status: Ordered docusate sodium 100 mg oral tablet = 100 mg, By Mouth, 2 times a day, # 60 tablet, 0 Refills, Maintenance, 11/24/22 8:44:00 EDT, Tablet, [facility], Partial fill upon patient [...] day, 0 Refills, Maintenance, 11/12/22 9:59:00 EDT, [place], Partial fill upon patient request if the [...] to hidradenitis by Geovany Mancera M.D. at [facility]. S/p 03/16/2005 wide excision (2 x 4 cm) of hydradenitis of the left axilla by Geovany Mancera M.D. at [facility]. 2Status post right hemithyroidectomy-pathology revealed benign [...] Reference Physician Member Role: PCP Address: Address: [address] [place] [address] [place], [place] [address] Name: Alana Phillips RN Position: S RN Member Role: Primary Care Nurse Name: Bernarda Fowler RN Position: [facility] RN Member Role: Primary Care Nurse Name: Vale Greenberg RN Position: S RN Member Role: Primary Care Nurse Care Team Related Persons Name: SANKET MICHAELS Name: TALI HERNADEZ Address: home [address] [place] [id number] Name: HORACIO ANDRADE Address: [place] [address]
--- OUTSIDE RECORDS SUMMARY | 2023-07-04 08:09 | XMS_ITS | Continuity of Care Document ---
Author Name Unknown Organization [facility] Address [address] [place] [address]- Care Team Providers Care Dairy Lab Technician Name Role Phone Lj Hall MD, Richelle Primary Care Phys [facility] Encounter [facility] [place] Date(s): 11/12/21 - 12/12/21 [facility] [address] [place] [id number] Allergies, Adverse Reactions, Alerts Substance [...] tablet, 1 Refills, Maintenance, 07/03/21 12:52:00 EST, Tablet,[facility][id number], Partial fill upon cookie... Start Date: 07/03/21 [...] 0 Refills, Maintenance, 07/03/21 12:26:00 EST, Gum, [facility], Partial fill upon patient request [...] 07/03/21 12:24:00 EST, Route to Pharmacy Electronically, [facility], Partialfill upon patient request if [...] May take additional tab on arrival to [facility] if needed, # 3 tablet, [...] to hidradenitis by Geovany Mancera M.D. at [facility]. S/p 03/16/2005 wide excision (2 x 4 cm) of hydradenitis of the left axilla by Geovany Mancera M.D. at [facility]. 2Status post right hemithyroidectomy-pathology revealed benign multinodular goiter. Social History Social History Type Response Smoking Status 10 or more cigarette s (1/2 pack or more)/day in last 30 days; Other: since 17 y.o.; entered on: 07/20/21 Sex
--- OUTSIDE RECORDS SUMMARY | 2023-07-04 08:09 | XMS_ITS | Continuity of Care Document ---
Author Name Unknown Organization [facility] Address [address] [place] [address]- Care Team Providers Care Analytics Senior Manager Name Role Phone Lj Hall MD, Richelle Primary Care Phys [facility] Encounter [facility] [place] ACCT R [id number] Date(s): 10/14/21 - 11/27/21 [facility] [address] [place] [id number] Attending Physician: Malorie Miner DO Admitting Physician: [...] tablet, 1 Refills, Maintenance, 07/03/21 12:52:00 EST, Tablet,[facility] #[id number], Partial fill upon cookie... Start Date: 07/03/21 [...] 0 Refills, Maintenance, 07/03/21 12:26:00 EST, Gum, [facility], Partial [...] 07/03/21 12:24:00 EST, Route to Pharmacy Electronically, [facility], Partialfill [...] May take additional tab on arrival to [facility] if needed, # 3 tablet, [...] to hidradenitis by Geovany Mancera M.D. at [facility]. S/p 03/16/2005 wide excision (2 x 4 cm) of hydradenitis of the left axilla by Geovany Mancera M.D. at [facility]. 2Status post right hemithyroidectomy-pathology revealed benign multinodular goiter. Social History Social History Type Response Smoking Status 10 or more cigarette s (1/2 pack or more)/day in last 30 days; Other: since 17 y.o.; entered on: 07/20/21 Sex
--- OUTSIDE RECORDS SUMMARY | 2023-07-04 08:10 | XMS_ITS | Continuity of Care Document ---
Author Name Unknown Organization [facility] ter Address [address] [place] [address]- Care Team Providers Care Copyman Name Role Phone Lj Hall MD, Richelle Primary Care Phys [facility] Encounter [facility] [place] Date(s): 11/16/22 - 12/16/[address] [address]- Attending Physician: Flor Gee Admitting Physician: AdmtrFlor Referring Physician: Admtr, Ar8 Allergies, Adverse Reactions, Alerts Substance Reaction Severity Status NSAIDs Active Immunizations Given and Recorded Vaccine Date Status Refusal Reason SARS-CoV-2 mRNA ([id number]) vax 09/03/21 Recorded SARS-CoV-2 (COVID-19) mRNA BNT-162b2 [...] 0 Refills, Maintenance, 11/24/22 8:42:00 EDT, Tablet, [facility], Partial fill upon patient request if the prescription is for aschedule II opioid drug., 165, cm, 11/12/22 9:51:00... Start Date: 11/24/22 Stop Date: 12/24/22 Status: Ordered docusate sodium 100 mg oral tablet = 100 mg, By Mouth, 2 times a day, # 60 tablet, 0 Refills, Maintenance, 11/24/22 8:44:00 EDT, Tablet, [facility], Partial fill upon patient [...] day, 0 Refills, Maintenance, 11/12/22 9:59:00 EDT, [place], Partial fill upon patient request if the [...] to hidradenitis by Geovany Mancera M.D. at [facility]. S/p 03/16/2005 wide excision (2 x 4 cm) of hydradenitis of the left axilla by Geovany Mancera M.D. at [facility]. 2Status post right hemithyroidectomy-pathology revealed benign [...] Reference Physician Member Role: PCP Address: Address: [address] [place] [address] [place] [address]- Name: Alana Phillips RN Position: S RN Member Role: Primary Care Nurse Name: Bernarda Fowler RN Position: [facility] RN Member Role: Primary Care Nurse Name: Vale Greenberg RN Position: S RN Member Role: Primary Care Nurse Care Team Related Persons Name: SANKET MICHAELS Name: TALI HERNADEZ Address: home [address] [place] [id number] Name: HORACIO ANDRADE Address: [place] [address]
--- OUTSIDE RECORDS SUMMARY | 2023-07-04 08:10 | XMS_ITS | Continuity of Care Document ---
Author Name Unknown Organization [facility] Address [address] [place] [address]- Care Team Providers Care Salesperson Shoes Name Role Phone Lj Hall MD, Richelle Primary Care Phys [facility] Encounter [facility] Date(s): 11/16/21 - 12/16/21 [facility] [address] [place] [address]- Allergies, Adverse Reactions, Alerts Substance Reaction Severity [...] tablet, 1 Refills, Maintenance, 07/03/21 12:52:00 EST, Tablet,[facility] #[id number], Partial fill upon cookie... Start Date: 07/03/21 [...] 07/03/21 12:26:00 EST, Gum, [facility], Partial fill upon patient request [...] May take additional tab on arrival to [facility] if needed, # 3 tablet, Refills [...]
--- OUTSIDE RECORDS SUMMARY | 2023-07-04 08:10 | XMS_ITS | Continuity of Care Document ---
Author Name Unknown Organization [facility] ter Address [address] [place] [address]- Care Team Providers Care Outdoor Emergency Care Technician Name Role Phone Lj Hall MD, Richelle [facility] [place] [place] Date(s): 06/27/21 - 07/03/[address] [address]- Encounter Diagnosis Asthma attack(Final) - 06/27/21 Discharge Disposition: A-D/C Home Attending Physician: Yannick Castle MD Admitting Physician: Daniel Tidwell MD Referring Physician: Not on Staff, Referring [...] tablet, 1 Refills, Maintenance, 07/03/21 12:52:00 EST, Tablet,[facility] #[id number], Partial fill upon cookie... Start Date: 07/03/21 [...] EDT, ; Start Date: 06/27/21 Status: Ordered hydrocortisone 2.5% topical cream 1 application, Topically, 2 times a day, PRN as needed, Maintenance, 06/27/21 16:43:00 EDT, ; Start Date: 06/27/21 Status: Ordered [...] 0 Refills, Maintenance, 07/03/21 12:26:00 EST, Gum, [facility], Partial fill upon patient request ifthe prescription is for a schedule II opioid drug.,... Start Date: 07/03/21 Status: Ordered nicotine 21 mg/24 hr transdermal film, extended release 1 patch, Topically, Daily, for 30 days, # 30 patch, 0 Refills, Acute 08/02/21 12:33:00 EST, 07/03/21 12:33:00 EST, Patch, [facility], Partial fill upon patient request if the prescription is for a schedule II opioid drug., 1 patch Topica... Start Date: 07/03/21 Stop Date: 08/02/21 Status: Ordered olanzapine 5 mg oral tablet 5 mg, 1, tablet, By Mouth, 2 times a day, Refills 0, Maintenance, 06/25/21 8:02:00 EDT, ; Start Date: 06/25/21 Status: Ordered tiZANidine 4 mg oral tablet 2 mg, 0.5, tablet, By Mouth, 3 times a day, PRN, # 10 tablet, Refills 0, Tot. Refills 0, Maintenance, Spasm, 07/03/21 12:24:00 EST, Route to Pharmacy Electronically, [facility], Partialfill upon patient request if the [...] Results Orders for Microbiology Reports Name Date Sputum Culture w/ Gram Smear 06/27/21 Microbiology Reports TEST:Sputum Culture STATUS:Auth (Verified) BODY SITE: SOURCE:EXPECT COLLECTED DATE/TIME:06/27/21 11:02 PM Sputum Culture SPECIMEN DESCRIPTION : EXPECTORATED SPUTUM SPECIAL REQUESTS : NONE GRAM STAIN : 2+ SQ.EPITHELIAL CELLS 3+ POLYMORPHONUCLEAR LEUKOCYTES 4+ GRAM POSITIVE COCCI 1+ GRAM POSITIVE RODS 1+ GRAM NEGATIVE RODS CULTURE : 4+ NORMAL DORINA REPORT STATUS : FINAL 06/30/2021 Radiology Reports * Exam Date Time Procedure Performing Provider Status 06/27/21 12:55 PM Chest 2 Views Frontal and Lat Siobhan Desai; Auth (Verified) Notes: (Chest 2 Views Frontal and Lat) Reason For Exam: Chest Pain;Other: RESULT: Chest 2 Views Frontal and Lat Chest 2 Views Frontal and Lat INDICATION/CLINICAL QUESTION: Shortness of breath TECHNIQUE: Frontal and lateral views of the chest. COMPARISON: None.. FINDINGS: LINES AND TUBES: Spinal stimulator present. LUNGS AND PLEURA: RIGHT CHEST: The right lung is clear and there is no right effusion. LEFT CHEST: The left lung is clear and there is no left effusion. HEART, MEDIASTINUM AND CARLOS ALBERTO: The heart is of normal size. The mediastinum and carlos alberto are normal. BONES AND SOFT TISSUES: No acute bony abnormality. IMPRESSION: 1. No active disease in chest. WSN: [id number] Ordering Physician: Sharmila Méndez Dictated By: Alli Chew MD Dictated Date/Time: 06/27/21 1:01 pm Reviewed By: Alli Chew MD Signed By: Alli Chew MD Signed Date/Time: 06/27/21 1:01 pm Transcribed By: ZOILA Transcribed Date/Time: 06/27/21 1:01 pm Vital Signs Most recent to oldest [Reference Range]: 1 2 3 4 Height 160 cm (07/03/21 8:22 AM) 160 cm (07/03/21 1:51 AM) 160 cm (07/02/21 7:44 PM) Weight 117.4 kg (07/03/21 4:25 AM) 117.6 kg (07/02/21 6:33 AM) 116.9 kg (07/01/21 5:48 AM) 116.9 kg (07/01/21 5:48 AM) Oxygen Saturation [94-100 %] 93 % *L* (07/03/21 8:22 AM) 93 % *L* (07/03/21 1:51 AM) 93 % *L* (07/02/21 7:44 PM) Pulse Rate [55-90 bpm] 66 bpm (07/03/21 8:22 AM) 66 bpm (07/03/21 1:51 AM) 75 bpm (07/02/21 7:44 PM) Body Mass Index [18.5-24.99] 43.48 *>HHI* (06/27/21 6:01 PM) Blood Pressure [90-138/55-84 mm Hg] 131/79mm Hg (07/03/21 8:22 AM) 113/71mm Hg (07/03/21 1:51 AM) 116/58mm Hg (07/02/21 7:44 PM) Respiratory Rate [16-30 br/min] 18 br/min (07/03/21 8:22 AM) 18 br/min (07/03/21 1:51 AM) 18 br/min (07/02/21 7:44 PM) Temperature [96.8-100.4 DegF] 97.8 DegF (07/03/21 8:22 AM) 98.1 DegF (07/03/21 1:51 AM) 97.7 DegF (07/02/21 7:44 PM) Liters per Minute 2 L/min (07/03/21 8:22 AM) 2 L/min (07/02/21 1:31 PM) 2.5 L/min (07/02/21 7:53 AM) Mode of Delivery (Oxygen) Room air (07/03/21 8:22 AM) CPAP (07/03/21 1:51 AM) Room air (07/02/21 7:44 PM) Blood pressure sites Arm, right (07/03/21 8:22 AM) Arm, right (07/03/21 1:51 AM) Arm, right (07/02/21 7:44 PM) Temperature Route Temporal (07/03/21 8:22 AM) Temporal (07/03/21 1:51 AM) Temporal (07/02/21 7:44 PM) Dry Weight 95.5 kg (06/27/21 6:01 PM) Weight Obtained Via Bed scale (07/03/21 4:25 AM) Bed scale (07/02/21 6:33 AM) Bed scale (07/01/21 5:48 AM) Dry Weight Obtained Via Patient/family stated (06/27/21 6:01 PM)
--- OUTSIDE RECORDS SUMMARY | 2023-07-04 08:10 | XMS_ITS | Continuity of Care Document ---
Author Name Unknown Organization [facility] ter Address [address] [place] [address]- Care Team Providers Care Powder Shoveler Name Role Phone Lj Hall MD, Richelle Primary Care Phys [facility] Encounter [facility] [place] Date(s): 11/05/22 - 05/28/[address] [address]- Encounter Diagnosis Chronic obstructive pulmonary disease, unspecified(Final) - Discharge Disposition: A-D/C Home Attending Physician: Beto James MD Admitting Physician: Beto James MD Referring Physician: Sara Zhu MD Allergies, Adverse Reactions, Alerts Substance Reaction Severity Status NSAIDs Active Immunizations Given and Recorded Vaccine Date Status Refusal Reason SARS-CoV-2 mRNA (dvpseio-zuhb-[id number]) vax 09/03/21 Recorded SARS-CoV-2 (COVID-19) mRNA BNT-162b2 [...] 0 Refills, Maintenance, 11/24/22 8:42:00 EDT, Tablet, [facility], Partial fill upon patient request if the prescription is for aschedule II opioid drug., 165, cm, 11/12/22 9:51:00... Start Date: 11/24/22 Stop Date: 12/24/22 Status: Ordered docusate sodium 100 mg oral tablet = 100 mg, By Mouth, 2 times a day, # 60 tablet, 0 Refills, Maintenance, 11/24/22 8:44:00 EDT, Tablet, [facility], Partial fill upon patient [...] day, 0 Refills, Maintenance, 11/12/22 9:59:00 EDT, [place], Partial fill upon patient request if the [...] to hidradenitis by Geovany Mancera M.D. at [facility]. S/p 03/16/2005 wide excision (2 x 4 cm) of hydradenitis of the left axilla by Geovany Mancera M.D. at [facility]. 2Status post right hemithyroidectomy-pathology revealed [...] Reference Physician Member Role: PCP Address: Address: [address] [place] [address] Name: Alana Phillips RN Position: S RN Member Role: Primary Care Nurse Name: Bernarda Fowler RN Position: Brendon MARIE RN Member Role: Primary Care Nurse Name: Vale Greenberg RN Position: S RN Member Role: Primary Care Nurse Care Team Related Persons Name: SANKET MICHAELS Name: TALI HERNADEZ Address: home [address] [place] [id number] Name: HORACIO ANDRADE Address: [place] [address]
--- OUTSIDE RECORDS SUMMARY | 2023-07-04 08:10 | XMS_ITS | Continuity of Care Document ---
Author Name Unknown Organization [facility] Address [address] [place] [address]- Care Team Providers Care Apple Peeler Operator Name Role Phone Lj Hall MD, Richelle Primary Care Phys [facility] Encounter [facility] [place] ACCT R [id number] Date(s): 10/19/21 - 02/12/22 [facility] [address] [place] [address]- Attending Physician: Malorie Miner DO Admitting Physician: [...] tablet, 1 Refills, Maintenance, 07/03/21 12:52:00 EST, Tablet,[facility] #[id number], Partial fill upon cookie... Start Date: 07/03/21 [...] 0 Refills, Maintenance, 07/03/21 12:26:00 EST, Gum, [facility], Partial fill upon [...] 07/03/21 12:24:00 EST, Route to Pharmacy Electronically, [facility], Partialfill upon patient request [...] May take additional tab on arrival to [facility] if needed, # 3 tablet, [...]
[2023-07-04 08:20] VITALS: BMI 36.7
== END 2023-07-04 08:29 | disposition home or self-care (01) ==
LOC: HO.HBS 07:55
PROVIDERS: PCP Internal Medicine; Visit Provider Surgery
DX: E66.9 Obesity, unspecified (principal); Z68.36 Body mass index [BMI] 36.0-36.9, adult
CPT/HCPCS: 99443

== ENCOUNTER → 2023-07-04 07:55 | Outpatient (BNVA) | payer OTHER, SELFPAY | PROVIDERS: PCP Internal Medicine; Visit Provider Surgery ==

== ENCOUNTER 2023-08-19 08:16 | Outpatient (AMB) | payer OTHER, SELFPAY ==
--- NOTE | 2023-08-18 19:55 | A.OFFVIS_ITS ---
Intake VS Expanded 08/18/23 19:56 Height 5 ft 3 in Weight 204 lb 3 oz BMI 36.2 Body Fat % 30.8 Body Fat Mass 62.9 Visceral Fat Rating 17 Body Water % 47.5 Body Water Mass 97 Basal Metabolic Rate/Score 1,769 Intake Visit Reasons: TV Revision of GBP to [facility] 08/30/23 Allergies NSAIDS (Non-Steroidal Anti-Inflamma Adverse Reaction (Severe, Verified 08/18/23 21:27) intestinal upset Medication List - Last Reconciled 08/18/23 by Rodrigo Reyes MD albuterol sulfate 90 mcg/actuation 2 puffs inhalation Q4-6H PRN cholecalciferol (vitamin D3) 125 mcg PO DAILY doxepin 150 mg PO BEDTIME food supplemt, lactose-reduced (Ensure High Protein oral liquid) 1 ea PO TID hydrocortisone 10 mg PO TID hydroxyzine HCl 100 mg PO TID iron,carbonyl-vitamin C 65 mg iron- 125 mg (Vitron-C) 1 tab PO DAILY levocetirizine 5 mg PO DAILY levothyroxine 50 mcg PO DAILY lurasidone (Latuda) 3 mg PO DAILY mecobalamin (vitamin B12) 1,000 mcg sublingual DAILY nicotine (Nicoderm CQ) 1 patch transdermal DAILY olanzapine 10 mg PO BID ondansetron 4 mg PO Q12H Oxygen Home Use As directed pantoprazole 40 mg PO DAILY polyethylene glycol 3350 (Miralax) 17 grams PO DAILY roflumilast (Daliresp) 500 mcg PO DAILY semaglutide (Ozempic) 0.25 mg subcut QWEEK sucralfate 10 mL PO BID tizanidine 2 mg PO TID PRN vitamin A palmitate 10,000 units PO DAILY HPI TV Revision of GBP to [facility] 08/30/23 HPI Details Start time: 9.15am, End time: 9.27am. An additional 18 minutes were used at a different part of the day to complete this note and review patient's records. ?I spent 12 minutes speaking with the patient on the phone plus an additional 18 minutes reviewing and updating records for a total of 30 minutes HPI Comments History of Present Illness Details Overall weight loss: 31.5lbs, or 13.36% TBWL nutritional plan: either 3 Ensure Plus protein shakes and 2 Kinyarwanda yogurts, or 2 Ensure Plus protein shakes and 3 Kinyarwanda yogurts Exercise: Gym to either 5 days/week doing elliptical for 200 calories and bike for 200 calories, or Gym x4/week doing elliptical for 250 calories and bike for 250 calories. [facility] Medical History (Updated 08/18/23 @ 21:34 by Rodrigo Reyes MD) Anxiety and depression Hypothyroid Diabetes Asthma COPD (chronic obstructive pulmonary disease) DJD (degenerative joint disease) Sleep apnea treated with continuous positive airway pressure (CPAP) Sudden adrenal gland insufficiency Surgical History (Updated 06/20/23 @ 15:16 by Yoon Mello) History of thyroidectomy History of dental surgery Hx of tonsillectomy Hx of arthroscopic knee surgery Hx of spinal surgery Hx of spinal fusion Hx of gastric bypass Hx of endoscopy Hx of colonoscopy Hx of oral surgery Family History (System 06/20/23 @ 15:16 by Yoon Mello) Mother Cancer Anemia Dumping syndrome Father No problems noted. Sister Cancer Daughter Morbid obesity Chronic mental illness Daughter Chronic mental illness Daughter Chronic mental illness Daughter Chronic mental illness Son Chronic mental illness Social History (System 06/20/23 @ 15:16 by Yoon Mello) Alcohol intake: former Patient Tobacco Use Status: Former Tobacco user Physical Exam Vital Signs: BMI result Body Mass Index 36.2 Assessment & Plan Assessment & Plan (1) Obesity: Code(s): E66.9 - Obesity, unspecified Qualifiers: Body mass index: BMI 36.0-36.9 Obesity classification: adult class 2 (BMI 35 - 39.9) Obesity type: due to excess calories Serious obesity comorbidity presence: with serious comorbidity Qualified Code(s): E66.01 - Morbid (severe) obesity due to excess calories; Z68.36 - Body mass index [BMI] 36.0-36.9, adult Plan: 1. Plan for lap sleeve gastrectomy of the gastric pouch including upper GI endoscopy. All tests has been completed and reviewed and the patient is cleared for the surgery. ?If diaphragmatic or ventral hernias are present at time of surgery, these will be repaired laparoscopically as well. Risks and complications were discussed in detail including possible conversion to an open procedure, anastomotic leak, bleeding requiring transfusion, small bowel obstruction, , DVT and pulmonary embolism, cardiac, or pulmonary complications, as watermaster complications such as anastomotic ulcer, insufficient weight loss and vitamin deficiencies. I emphasized the importance of close follow-up, adherence to instructions and good communication. So far she has proven to be an excellent communicator and very compliant with all our directions accomplishing a great weight loss. I believe that she is an excellent candidate and she is ready. 2. Preop prescriptions were provided and explained the purpose of each one. Need to be purchased preop. Start Pantoprazole now as you get it from the pharmacy, 1 pill per day. Sucralfate and Zofran are for after surgery as needed. 3. Bowel prep: please do 7 packets ?of Miralax mixing each one with a an 8oz glass of water, crystal light, gatorade zero, or propel ?on 08/28/22 and the same amount on 08/29/22. Continue the protein shakes during? the bowel prep. 4. Needs to purchase 1oz medicine cups . 5. Needs to purchase Children's liquid Tylenol for postop pain control. 6. She needs to stop the Roflumilast (Daliserp) and the Ozempic on 08/21/23. Avoid aspirin, motrin, Advil, Aleve, Ibuprofen, Naproxyn. Tylenol is OK. 7. Reduce the Hydrocortisone to every 12 hours on 08/19, 08/20 and 08/21. Reduce to one pill per day on 08/22, 08/23, 08/24 and 08/25. Do not take it on 08/26/23 and thereafter. 8. She needs to purchase the Celebrate 4:1 protein shakes from the hospital's gift shop. 9. Will do basic preop blood work-up any day between Tuesday08/23/23 and Tuesday08/26/23 fasting for 12 hours and is scheduled to see the Anesthesiologist prior to the day of surgery. 9. Importance of adherence to postop folllow-up and recommendations was underscored and she understands that. 11. Stop food and bars as of Tuesday08/22/23 and continue with 3 Ensure Plus protein shakes (mix 1/2 bottle in 6oz almond milk) at 6am-8am, 9am-11am and 12pm-2pm and three more Ensure plus protein shakes (whole bottle) at 3pm-5pm, 6pm-8pm and 9pm-11pm 12. No soups, broths or V8 13. The patient's?medical?history has been reviewed and they are considered low risk for post op DVT and therefore DVT prophylaxis is not considered necessary. Travel after surgery was reviewed. The patient has not disclosed any travel plans during the first 30 days after surgery and they have been advised that within the first 30 days after surgery any bus, plane, train or car travel over 2 hours in duration is contraindicated due to the possibility of developing blood clots from immobility. Any travel, needs to include periods of ambulation of 10 minutes in duration every 2 hours.? Patient was instructed to discuss any plans for travel during this period with their bariatric surgeon.? 14. Use your CPAP daily and bring it to the hospital with your mask 15. Please take at the day of surgery the following medications: Olanzapine and Latuda with a sip of water 16. Stop any control pills and don't use them for one month after surgery 17. Absolutely no smoking or vaping, or marijuana until the surgery and for at least the first 4 weeks. Only nicotine patches are allowed. 18. Send me weight measurements on Tuesday08/23/23 and then on Tuesday08/30/23 the day of surgery before you go to the hospital. 19. Avoid any steroids by mouth for any reason. Let me know if someone prescribes them to you Orders: Orders TSH reflex Free T4 08/18/23 E66.9 - Obesity, unspecified Prothrombin Time INR 08/18/23 E66.9 - Obesity, unspecified Complete Blood Count Auto Diff 08/18/23 E66.9 - Obesity, unspecified Hemoglobin A1c 08/18/23 E66.9 - Obesity, unspecified Comprehensive Met. Panel 08/18/23 E66.9 - Obesity, unspecified Type and Screen 08/18/23 E66.9 - Obesity, unspecified Partial Thromboplastin Time 08/18/23 E66.9 - Obesity, unspecified Insulin 08/18/23 E66.9 - Obesity, unspecified C Reactive Protein 08/18/23 E66.9 - Obesity, unspecified Lipid Panel 08/18/23 E66.9 - Obesity, unspecified Medications: New sucralfate 10 mL PO BID 600 mL 2RF K21.9 - Gastro-esophageal reflux disease without esophagitis ondansetron Only take one every 12 hours as needed if you have nausea 4 mg PO Q12H 20 tabs 0RF nausea and vomiting R11.0 - Nausea polyethylene glycol 3350 (Miralax) Mix each packet with 8oz of water, Crystal light, or Gatorade zero, or Propel and do 7 packets on 08/28/23 and another 7 packets on 08/29/23 17 grams PO DAILY 14 ea 0RF Z01.818 - Encounter for other preprocedural examination pantoprazole 40 mg PO DAILY 90 tabs 0RF K21.9 - Gastro-esophageal reflux disease without esophagitis Telehealth Telehealth Location of provider rendering services: practice address Location of patient: address on file Patient Identification confirmed using: Name, : Yes Telehealth method: voice only Patient verbally consented to treatment: Yes Patient verbally consented to billing insurance company: Yes Patient informed of any privacy concerns related to visit: Yes Minutes spent on Phone/Video with Pt.: 30 Coding Level of Care Code Tele Est Pt Level 4 (53289) Diagnoses Class 2 severe obesity due to excess calories with serious comorbidity and body mass index (BMI) of 36.0 to 36.9 in adult E66.01; Z68.36 Body mass index: BMI 36.0-36.9 Obesity classification: adult class 2 (BMI 35 - 39.9) Obesity type: due to excess calories Serious obesity comorbidity presence: with serious comorbidity Time Spent (min) 30
[2023-08-18 19:56] VITALS: BMI 36.2
--- OUTSIDE RECORDS SUMMARY | 2023-08-19 08:18 | XMS_ITS | Continuity of Care Document ---
Author Name Unknown Organization [facility] Address [address] [place] [id number] Care Team Providers Care Hand Rug Braider Name Role Phone Richelle Patel MD Primary Care Phys [facility] [place] [facility] [place]23[place] - 10/24/[address] [address] Attending Physician: Bi Joyce MD Admitting Physician: Bi Joyce MD Referring Physician: Richelle Patel MD Allergies, [...] tablet, 1 Refills, Maintenance, 07/03/21 12:52:00 EST, Tablet,[facility] #[id number], Partial fill upon cookie... Start Date: 07/03/21 [...] 0 Refills, Maintenance, 07/03/21 12:26:00 EST, Gum, [facility], Partial fill upon patient request ifthe [...] 07/03/21 12:24:00 EST, Route to Pharmacy Electronically, [facility], Partialfill upon patient request if the [...] to hidradenitis by Geovany Mancera M.D. at [facility]. S/p 03/16/2005 wide excision (2 x 4 cm) of hydradenitis of the left axilla by Geovany Mancera M.D. at [facility]. 2Status post right hemithyroidectomy-pathology revealed benign multinodular goiter. Social History Social History Type Response Smoking Status 10 or more cigarette s (1/2 pack or more)/day in last 30 days; Other: since 17 y.o.; entered on: 07/20/21 Sex
--- OUTSIDE RECORDS SUMMARY | 2023-08-19 08:19 | XMS_ITS | Continuity of Care Document ---
Author Name Unknown Organization [facility] Address [address] [place] [id number]- Care Team Providers Care Waste Chopper Name Role Phone Lj Hall MD, Richelle Primary Care Phys [facility] Encounter [facility] [place] Date(s): 10/01/21 - 10/31/[address] [address] Allergies, Adverse Reactions, Alerts Substance Reaction Severity [...] tablet, 1 Refills, Maintenance, 07/03/21 12:52:00 EST, Tablet,[facility] #[id number], Partial fill upon cookie... Start Date: 07/03/21 [...] 0 Refills, Maintenance, 07/03/21 12:26:00 EST, Gum, [facility], Partial fill upon patient request [...] 07/03/21 12:24:00 EST, Route to Pharmacy Electronically, [facility], Partialfill upon patient request if [...] to hidradenitis by Geovany Mancera M.D. at [facility]. S/p 03/16/2005 wide excision (2 x 4 cm) of hydradenitis of the left axilla by Geovany Mancera M.D. at [facility]. 2Status post right hemithyroidectomy-pathology revealed benign multinodular goiter. Social History Social History Type Response Smoking Status 10 or more cigarette s (1/2 pack or more)/day in last 30 days; Other: since 17 y.o.; entered on: 07/20/21 Sex
== END 2023-08-19 09:27 | disposition home or self-care (01) ==
LOC: HO.HBS 08:16
PROVIDERS: PCP Internal Medicine; Visit Provider Surgery
DX: E66.01 Morbid (severe) obesity due to excess calories (principal); Z68.36 Body mass index [BMI] 36.0-36.9, adult
CPT/HCPCS: 99443

== ENCOUNTER → 2023-08-19 08:16 | Outpatient (BNVA) | payer OTHER, SELFPAY | PROVIDERS: PCP Internal Medicine; Visit Provider Surgery | DX: E66.9 Obesity, unspecified (principal); K21.9 Gastro-esophageal reflux disease without esophagitis; R11.0 Nausea; Z01.818 Encounter for other preprocedural examination ==

== ENCOUNTER → 2023-08-23 09:20 | Outpatient (BNVA) | payer OTHER, SELFPAY | PROVIDERS: PCP Internal Medicine; Visit Provider Physician Assistant ==

== ENCOUNTER 2023-08-30 09:17 | Inpatient (IN) | payer OTHER, SELFPAY ==
[2023-08-23 09:15] LABS: MANUAL DIFF FLAG NO
[2023-08-23 09:36] LABS: Basophils Absolute Auto 0.1 X10*3/uL (0.0-0.2); Basophils Percent Auto 0.6 % (0-2); Eosinophils Absolute Auto 0.1 X10*3/uL (0.0-0.4); Eosinophils Percent Auto 1.3 % (0-4); Hematocrit 43.6 % (37.0-47.0); Hemoglobin 14.3 g/dl (12.0-16.0); Imm Gran Abs Auto 0.03 X10*3/uL (0.00-0.03); Imm Gran Pct Auto 0.3 % (0.0-0.4); Lymphocytes Absolute Auto 2.6 X10*3/uL (1.2-4.9); Mean Corpuscular HGB Conc 32.8 g/dl (31.0-35.0); Mean Corpuscular Hemoglobin 27.6 pg (27.0-33.0); Mean Platelet Volume 10.2 fL (9.4-12.3); Monocytes Absolute Auto 0.8 X10*3/uL (0.1-1.2); Monocytes Percent Auto 8.7 % (2-11); Neutrophils Absolute Auto 5.9 x10*3/uL (2.0-8.3); Neutrophils Percent Auto 62.1 % (45-73); Platelet Count 346 X10*3/uL (160-400); Red Blood Count 5.19 X10*6/uL (4.20-5.50); Red Cell Distribution Width 17.8 % (11.0-16.0); White Blood Count 9.5 X10*3/uL (4.8-10.8)
[2023-08-23 09:41] LABS: INTERNATIONAL NORM RATIO 0.8 (0.9-1.1); Prothrombin Time 9.8 SEC (11.1-13.3)
[2023-08-23 09:44] LABS: Partial Thromboplastin Time 29.7 SEC (26.0-36.4)
[2023-08-23 10:15] LABS: Estimated Average Glucose 111 mg/dL; Hemoglobin A1c % 5.5 % (<6.0)
[2023-08-23 10:18] LABS: Alanine Aminotransferase 107 U/L (0-31); Albumin Level 4.1 g/dL (3.5-5.0); Alkaline Phosphatase 220 U/L (39-117); Anion Gap 13 (12-20); Aspartate Amino Transferase 48 U/L (5-31); Bilirubin Total 0.8 mg/dL (0.0-1.0); Blood Urea Nitrogen 42 mg/dL (9-16); C Reactive Protein 0.52 mg/dL (< or = 0.50); Calcium 9.3 mg/dL (8.4-10.2); Carbon Dioxide 28 mmol/L (22-29); Chloride 106 mmol/L (96-108); Cholesterol 166 mg/dL (<200); Estimated Glomerular Filt Rate > 60; Glucose Random 77 mg/dL (60-115); HDL Cholesterol 87 mg/dL (>40); LDL Cholesterol Calculated 66 mg/dL (<100); Sodium 143 mmol/L (135-145); Total Protein 7.6 g/dL (6.5-8.0); Triglycerides 68 mg/dL (<150)
[2023-08-23 10:33] LABS: Insulin 4 uU/mL (2-29); TSH reflex Free T4 2.52 uIU/mL (0.32-4.0)
[2023-08-25 10:41] VITALS: BMI 36.0
--- NOTE | 2023-08-26 23:21 | MHC.SHP ---
Pre-Procedural Eval Section A Date of Service: 08/26/23 The patient is an INPATIENT: Yes The History & Physical has been completed within 30 days and I have reviewed it.: Yes Section B Chief Complaint: Obesity, unspecified Relevant Family History (Specify if Yes): No Relevant Social History: None Present Medications: None Medical History: No relevant PMH History of Previous Operations: Relevant previous surgery/procedure and date(s) (hand-assisted gastric bypass) Allergies: Allergies Allergy/AdvReac Type Severity Reaction Status Date / Time NSAIDS (Non-Steroidal AdvReac Severe intestinal Verified 08/18/23 21:27 Anti-Inflamma upset Review of Systems Sugical H&P ROS: Negative: Constitution, Cardiovascular, Respiratory, Neurological, Psychiatric, Hem-Onc, Allergic/Immunologic, Gastrointestinal, Genitourinary, Musculoskeletal, Integumentary, Endocrine and Eyes/Ears/Nose/Throat Exam Surgical H&P Exam: Normal: HEENT, Normal: Heart, Normal: Lungs, Normal: Extremities, Normal: Abdomen, Normal: Skin and Normal: Neurological Plan Diagnosis/Plan: Unchanged I have reviewed the history and physical and performed a pertinent physical examination on my patient. No changes have occurred unless specified. Time Spent With Patient Time: Total time managing care of this patient today ____ minutes.
--- NOTE | 2023-08-29 09:54 | HO.ANESPROP2 ---
Documented by User: Helen Ibarra NP 08/29/23 09:57 HPI - Anesthesia Eval Consult details Narrative: 53yo F for Gastric Bypass Revision Laparoscopic to Sleeve Gastrectomy-EGD, possible diaphragmatic hernia, possible ventral hernia, possible open Anesthesia Pre-Procedure Meds Is the patient on any of the following meds?: Semaglutide (Ozempic) PMFSH Active Problems Active Problems: All Active Problems (Updated 08/25/23 @ 10:38 by Dominique Thompson RN) BMI 36.0-36.9,adult (Acute) BMI 37.0-37.9, adult (Acute) Obesity (Acute) Vitamin A deficiency (Acute) Vitamin B12 deficiency (Acute) Vitamin D deficiency (Acute) Iron deficiency (Acute) Posttraumatic stress disorder (Acute) Abnormal ECG (Acute) Pre-op evaluation (Acute) Tobacco smoker, 1 pack of cigarettes or less per day (Acute) Low blood pressure (Acute) Anxiety and depression (Acute) Diabetes mellitus (Acute) Insomnia (Acute) Asthma (Acute) COPD (chronic obstructive pulmonary disease) (Acute) Emphysema lung (Acute) Hypothyroid (Acute) Obstructive sleep apnea (Acute) S/P gastric bypass (Acute) Morbid obesity (Acute) DJD (degenerative joint disease) (Acute) Sleep apnea treated with continuous positive airway pressure (CPAP) (Acute) Sudden adrenal gland insufficiency (Acute) Past Medical History Medical History PTSD (post-traumatic stress disorder) Anxiety and depression Hypothyroid Diabetes Asthma COPD (chronic obstructive pulmonary disease) DJD (degenerative joint disease) Sleep apnea treated with continuous positive airway pressure (CPAP) Sudden adrenal gland insufficiency Family History Family History Mother Cancer Anemia Dumping syndrome Father No problems noted. Sister Cancer Daughter Morbid obesity Chronic mental illness Daughter Chronic mental illness Daughter Chronic mental illness Daughter Chronic mental illness Son Chronic mental illness Family history of problems with anesthesia: No Surgical History Surgical History History of incisional hernia repair History of thyroidectomy History of dental surgery Hx of tonsillectomy Hx of arthroscopic knee surgery Hx of spinal surgery Hx of spinal fusion Hx of gastric bypass Hx of endoscopy Hx of colonoscopy History of Problems with Anesthesia: No Social History Social History Are you a primary toddler caregiver to a significant other at home: Yes 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 If so, by whom?: No Are you DNR?: No Advance Directives: No Advance Directives Information Provided: No Advance Directives on File: No Recently lost weight without trying: No Eating poorly because of decreased appetite: No Nutrition Risks: No Nutritional Risk Patient : No Poor oral hygiene: Yes (all upper teeth extracted and some lower teeth) Meds Allergies Allergy/AdvReac Type Severity Reaction Status Date / Time NSAIDS (Non-Steroidal AdvReac Severe intestinal Verified 08/18/23 21:27 Anti-Inflamma upset Home Medications Medication Instructions Recorded Confirmed Last Taken Type albuterol sulfate 90 mcg/actuation 2 puff inhalation Q4-6H PRN 08/19/21 08/30/23 08/30/23 06:00 History aerosol inhaler Wheezing hydrocortisone 10 mg tablet 10 mg PO TID 08/19/21 08/25/23 08/29/23 History levocetirizine 5 mg tablet 5 mg PO DAILY 08/19/21 08/25/23 08/29/23 History levothyroxine 50 mcg tablet 50 mcg PO DAILY 08/19/21 08/25/23 08/30/23 06:00 History tizanidine 2 mg capsule 2 mg PO TID PRN Muscle Spasm 08/19/21 08/25/23 Unknown History hydroxyzine HCl 50 mg tablet 100 mg PO TID 08/06/22 08/25/23 08/29/23 History olanzapine 5 mg tablet 10 mg PO BID 08/06/22 08/25/23 Unknown History roflumilast 500 mcg tablet 500 mcg PO DAILY 08/06/22 08/25/23 Unknown History (Daliresp) Oxygen Home Use 09/08/22 08/18/23 Unknown History semaglutide 0.25 mg or 0.5 mg (2 0.25 mg subcut QWEEK 09/08/22 08/25/23 08/21/23 History mg/1.5 mL) subcutaneous pen injector (Ozempic) doxepin 50 mg capsule 150 mg PO BEDTIME 10/18/22 08/30/23 08/29/23 History nicotine 21 mg/24 hr daily 1 patch transdermal DAILY 01/14/23 08/25/23 Unknown History transdermal patch (Nicoderm CQ) lurasidone 20 mg tablet (Latuda) 3 mg PO DAILY 04/22/23 08/25/23 08/29/23 History fluticasone fur. 200 mcg-umeclid 1 ea inhalation DAILY 08/25/23 08/25/23 08/30/23 06:00 History 62.5 mcg-vilant 25 mcg inhalat.powder (Trelegy Ellipta) Exam Height,Weight and Vital Signs: Height 5 ft 3 in Weight 92.079 kg Pertinent Lab Results Pertinent Lab Results: Laboratory Tests 08/23/23 08/23/23 09:10 09:14 WBC 9.5 RBC 5.19 Hgb 14.3 Hct 43.6 MCV 84.0 MCH 27.6 MCHC 32.8 RDW 17.8 H Plt Count 346 MPV 10.2 Immature Gran % (Auto) 0.3 Neut % (Auto) 62.1 Lymph % (Auto) 27.0 Faulkner % (Auto) 8.7 Eos % (Auto) 1.3 Baso % (Auto) 0.6 Lymph # (Auto) 2.6 Faulkner # (Auto) 0.8 Eos # (Auto) 0.1 Baso # (Auto) 0.1 Abs Immat Gran (auto) 0.03 Absolute Neuts (auto) 5.9 Absolute Nucleated RBC 0.000 Nucleated RBC % (auto) 0.0 PT 9.8 L INR 0.8 L APTT 29.7 Sodium 143 Potassium 4.0 Chloride 106 Carbon Dioxide 28 Anion Gap 13 BUN 42 H Creatinine 0.93 Estim Creat Clear Calc TNP Estimated GFR > 60 Random Glucose 77 Estimat Average Glucose 111 Hemoglobin A1c % 5.5 Insulin Level 4 Calcium 9.3 Total Bilirubin 0.8 AST 48 H ALT 107 H Alkaline Phosphatase 220 H C-Reactive Protein 0.52 H Total Protein 7.6 Albumin 4.1 Triglycerides 68 Cholesterol 166 LDL Cholesterol, Calc 66 HDL Cholesterol 87 TSH 2.52 Blood Type O Positive Antibody Screen NEGATIVE Assessment and Plan Assessment Anesthesia Assessment: Chart Reviewed Final Anesthetic Review Family History of Problems with Anesthesia: No History of Problems with Anesthesia: No Documented by User: Nas Serrato MD 08/30/23 10:59 HPI - Anesthesia Eval Anesthesia Pre-Procedure Meds If Yes to any meds - educate patient: Pt education - increased risk of aspiration and Pt education - possibility of cancelled proc at provider's discretion PMFSH Past Medical History Medical History PTSD (post-traumatic stress disorder) Anxiety and depression Hypothyroid Diabetes Asthma COPD (chronic obstructive pulmonary disease) DJD (degenerative joint disease) Sleep apnea treated with continuous positive airway pressure (CPAP) Sudden adrenal gland insufficiency Family History Family History Mother Cancer Anemia Dumping syndrome Father No problems noted. 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 If so, by whom?: No Are you DNR?: No Advance Directives: No Advance Directives Information Provided: No Advance Directives on File: No Recently lost weight without trying: No Eating poorly because of decreased appetite: No Nutrition Risks: No Nutritional Risk Patient : No Poor oral hygiene: Yes (all upper teeth extracted and some lower teeth) Meds Allergies Allergy/AdvReac Type Severity Reaction Status Date / Time NSAIDS (Non-Steroidal AdvReac Severe intestinal Verified 08/18/23 21:27 Anti-Inflamma upset Home Medications Medication Instructions Recorded Confirmed Last Taken Type albuterol sulfate 90 mcg/actuation 2 puff inhalation Q4-6H PRN 08/19/21 08/30/23 08/30/23 06:00 History aerosol inhaler Wheezing hydrocortisone 10 mg tablet 10 mg PO TID 08/19/21 08/25/23 08/29/23 History levocetirizine 5 mg tablet 5 mg PO DAILY 08/19/21 08/25/23 08/29/23 History levothyroxine 50 mcg tablet 50 mcg PO DAILY 08/19/21 08/25/23 08/30/23 06:00 History tizanidine 2 mg capsule 2 mg PO TID PRN Muscle Spasm 08/19/21 08/25/23 Unknown History hydroxyzine HCl 50 mg tablet 100 mg PO TID 08/06/22 08/25/23 08/29/23 History olanzapine 5 mg tablet 10 mg PO BID 08/06/22 08/25/23 Unknown History roflumilast 500 mcg tablet 500 mcg PO DAILY 08/06/22 08/25/23 Unknown History (Daliresp) Oxygen Home Use 09/08/22 08/18/23 Unknown History semaglutide 0.25 mg or 0.5 mg (2 0.25 mg subcut QWEEK 09/08/22 08/25/23 08/21/23 History mg/1.5 mL) subcutaneous pen injector (Ozempic) doxepin 50 mg capsule 150 mg PO BEDTIME 10/18/22 08/30/23 08/29/23 History nicotine 21 mg/24 hr daily 1 patch transdermal DAILY 01/14/23 08/25/23 Unknown History transdermal patch (Nicoderm CQ) lurasidone 20 mg tablet (Latuda) 3 mg PO DAILY 04/22/23 08/25/23 08/29/23 History fluticasone fur. 200 mcg-umeclid 1 ea inhalation DAILY 08/25/23 08/25/23 08/30/23 06:00 History 62.5 mcg-vilant 25 mcg inhalat.powder (Trelegy Ellipta) Exam Airway Mallampati Class: II TM Dist: >3cm Neck ROM: Full Denture: Upper Loose/Missing/Broken Teeth: Yes Heart: [id number] Lungs: cta b/l Assessment and Plan Assessment Anesthesia Assessment: Anesthesia Plan Discussed Final Anesthetic Review NPO: Yes ASA Class: III Final Preanesthetic Review: No Changes in Pt Med Stat, Meds/Allgs Chart Reviewed, Consent Obtained/Reviewed and Anes Risks/Benef Reviewed Patient Risk: Intermediate Procedure Risk: Intermediate Assessment/Block/Sedation in SS: Assess/Block/Sedation-SS Anesthetic Plan Anesthetic Plan: GA and Agree w/ Assess. and Plan Disposition: Standard PACU
[2023-08-30] VITALS (16 sets, daily range): BP systolic 109–150; BP diastolic 66–92; PULSE 60–82; RESP 12–16; TEMP 36.1–36.9; O2SAT 91–99
--- NOTE | ~2023-08-30 | XR_ITS ---
EXAMINATION: XR ABDOMEN KUB CLINICAL INDICATION: Drain location COMPARISON: None available. TECHNIQUE: 3 views of the abdomen. Limited secondary to patient's body habitus. FINDINGS: There is a left abdominal spinal stimulator, a Kauffman catheter, and a left upper quadrant surgical drain entering the left mid abdomen, extending to the left upper quadrant, and terminating near midline in the upper abdomen. There are multiple surgical clips. There is orthopedic hardware in the lumbar spine. The bowel gas pattern is nonspecific. There is air distention of multiple small and large bowel loops. XR/XR abdomen 1V IMPRESSION: Surgical drain in left abdomen extending to the left upper quadrant.
--- NOTE | ~2023-08-30 | XR_ITS ---
EXAMINATION: XR CHEST CLINICAL INFORMATION: Diaphragmatic hernia repair. COMPARISON: 06/10/2022 TECHNIQUE: 2 views of the chest were obtained. FINDINGS: Lungs of low volume with elevated hemidiaphragms bilaterally. Lungs are clear cardiomediastinal silhouette is normal. There is neurostimulator present in the thoracic spine. XR/XR chest 2V IMPRESSION: No active cardiopulmonary disease low lung volume bilaterally.
--- NOTE | 2023-08-30 09:17 | ECG_ITS ---
Test Reason : preop Blood Pressure : / mmHG Vent. Rate : 063 BPM Atrial Rate : 063 BPM P-R Int : 156 ms QRS Dur : 080 ms QT Int : 444 ms P-R-T Axes : 065 018 023 degrees QTc Int : 454 ms Normal sinus rhythm Normal ECG No previous ECGs available Referred By: Helen Ibarra Electronically Signed By:JORGITO JARAMILLO MD
--- NOTE | 2023-08-30 09:27 | PHA.MEDREC ---
Pharmacy Consult ? Medication Reconciliation Pharmacy has completed the medication reconciliation. Reviewed med rec done by nursing
[2023-08-30 10:29] LABS: Glucose, Whole Blood 98 mg/dL (60-115)
--- NOTE | 2023-08-30 10:41 | PC.NURSE ---
attempted two iv insertions. patient is a hardstick. warming up both arms.
[2023-08-30] MEDS: Lactated Ringers 1,000 ML 999 ML IV (10:51)
[2023-08-30] MEDS: Aprepitant 32 MG/4.4 ML VIAL IVPUSH (10:53)
--- NOTE | 2023-08-30 10:56 | PM.OP ---
Brief Operative Note Date of Service: 08/30/23 Pre-op diagnosis: Severe obesity with comorbidities (see below) Post-op diagnosis: same (& diaphragmatic hernia, extensive and dense adhesions) Procedure: PROCEDURE: [id number], laparoscopic repair of incarcerated diaphragmatic hernia, laparoscopic lysis of adhesions and laparoscopic sleeve gastrectomy of the gastric pouch. UNIQUELY DIFFICULT CASE WITH EXTENSIVE AND DENSE ADHESIONS WITH A TOTAL OPERATIVE TIME OF 4 HOURS AND 10 MINUTES. INDICATIONS: This is a 53 year-old female with a BMI of 41.8 kg/m2, history of failed gastric bypass surgery and associated comorbid conditions as described previously. After appropriate workup and a 32.7 lbs, or 14.3 %TBWL, the patient was electively scheduled for laparoscopic, possibly open sleeve gastrectomy of the gastric pouch. The risks and complications of the procedure were discussed with the patient in advance, particularly the possibility of ; pulmonary embolism; staple line leak; bleeding; GERD; cardiac, pulmonary, or renal complications; as well as long-term problems such as insufficient weight loss, vitamin deficiency, strictures, or ulcers. The patient understood all the risks, and was in agreement to proceed with surgery. DESCRIPTION OF PROCEDURE: After informed consent was obtained from the patient, the patient was given preoperative antibiotics, and was transferred to the operating room. After successful induction of general anesthesia, pneumatic compressive devices were placed on both lower extremities. An upper endoscopy was performed next. The oropharynx and esophagus appeared to be within normal limits. There was a diaphragmatic hernia present of moderate size consistent with the findings of the preoperative upper endoscopy I performed. The stomach was entered. Then after all fluid and air were suctioned and the stomach was fully decompressed, the scope was withdrawn and secured in the mid esophagus. The patient was then prepped and draped in the usual sterile manner, and abdominal access was established at the right upper quadrant with the Sherita technique. A 12 mm blunt port was inserted, and the abdomen was insufflated with CO2 to a pressure of 15 mmHg. Under direct visualization, additional ports were placed, specifically two 5 mm Versi-step ports to the left upper quadrant, and a 5 mm Versi-Step port to the right upper quadrant. 1% lidocaine plan was used to infiltrate all port sites as well as all fascia defects. Following that, the patient was placed in a steep reverse Trendelenburg position. An additional 5 mm port was placed to the right flank for the Mediflex retractor that was used to retract the left lobe of the liver. The liver retractor had to be re-positioned multiple times throughout the procedure due to dense adhesions of the left liver lobe. There were adhesions between the undersurface of the left lobe of the liver and the gastric remnant primarily but also the blind end of the Casandra limb and the gastric pouch. This required tedious and extensive dissections. As we were working very close to the liver surface we encountered frequent oozing from the liver which required the use of Surgicel and releasing Temporarily the liver retractor to reduce pressure on the liver and engorgement. The adhesions were lysed with the Thunderbeat. Once this was done the liver retractor was re-positioned to get exposure to the hiatal area. Some omental fat overlying the Casandra limb was mobilized and the gastro-jejunostomy was identified. I continued by dissecting between the gastric remnant and the gastric pouch. The gastric pouch was very short but there was significant redundancy laterally based on the preoperative endoscopy. There were some posterior short gastric vessels that were not previously divided. Those were divided with the Thunderbeat. Separation of the gastric pouch from the retrogastric attachements was difficult because of the severe fibrotic reaction from the previous operation. Nevertheless, those were divided and that allowed exposure to the left darlene. The gastro-esophageal fat pad was opened with the ultrasonic device (Thunderbeat, Olympus) and the anterior esophagus and hiatus were exposed. The angle of His was opened with the ultrasonic device the fundus of the stomach from any diaphragmatic and splenic attachments. Adhesiolysis took approximately 200 min to complete. There was an obvious significant-sized hiatal hernia. I continued dissecting along the hiatus toward the left darlene and the angle of His. I fully mobilized the fat pad that was incarcerated in the hernia. I then continued by dissecting even further into the posterior retro-esophageal space all the way to the angle of His. I continued to mobilize the esophagus into the mediastinum circumferentially. Both vagal nerves were seen and preserved. At that point, I was able to have at least 3 to 5 cm of esophagus into the abdomen.? After I completely mobilized the esophagus from both the left and right darlene and I had a good mobilization of the esophagus circumferentially, I closed the hernia defect with three interrupted #0 Surgidac sutures using the Endo Stitch device, one of which was placed anterior and two of them posterior to the esophagus. ? There was significant redundancy of the stomach laterally and posteriorly. The redundant stomach was then divided with one Endo NICOLLE-45 purple from [employer] and two NICOLLE-45 articulating orange loads using the AEON stapler and loads. Every effort was made that the gastric sleeve had a tubular shape and an even caliber throughout. Once the sleeve resection was completed, the staple line of the gastric sleeve was reinforced with Hemoclips. The resected stomach was retrieved without difficulty from the Sherita port. There was an area of ischemia just proximally from the gastro-jejunostomy and laterally. This was also confirmed endoscopically. This is unusual to occur especially at this area and it is possible that the left gastric vessels may have been compromised to some extend at the original operation as the pouch was extremely short. The more proximal pouch near the GE junction had normal blood supply. The ischemic area was imbricated with two seromascular 2.0 Surgicac sutures using the Endostitch device. ?An upper endoscopy was performed. There was no narrowing at the GE junction. The scope was easily advanced all the way to the gatro-jejunostomy which was clearly visualized. The scope was easily advanced to the Casandra limb. The small intestine was viable as well as the anastomosis. There was no narrowing anywhere and the pouch's caliber was even throughout. The new staple line was inspected and there was no evidence of ischemia, bleeding or dehiscence. At that point the gastroscope was withdrawn from the patient?s mouth while we were decompressing the bowel and the stomach from any remaining air. There was no bleeding from the staple line, spleen, or short gastric vessels. The Mediflex retractor was removed, and the undersurface of the liver was inspected and there was no bleeding. The patient was placed in supine position. I closed the fascial defect of the 12 mm port site with a figure of eight #1 Polysorb suture. Then 30cc Ropivacaine plain with 10 mg of Dexamethasone were used to infiltrate the fascial closure as well as all skin incisions. At this point, the abdomen was deflated, all ports were removed under direct vision, and no bleeding was noted from any of the port sites. The skin incisions were irrigated with saline and were closed with 4-0 absorbable monofilament sutures. Steri-Strips and OpSites were used to cover all incisions. The patient was extubated and was transferred in stable condition to the recovery room for further care. I was present and performed all haywood parts of the procedure. Ms. Caceresson was the graduate assistant. There were no residents to assist with this case. Jordan Reyes MD, PhD, FACS Surgeon: Rodrigo Reyes MD Anesthesia: GETA, local and other (TAP block) Was an Fruit Packer Face And Fill used for this Procedure?: No Fruit Packer Face And Fill: Erica Waite Estimated blood loss (mL): 100 IV fluids (mL): 3,600 Urine output (mL): 550 Pathology: other (Stomach) Condition: stable Disposition: PACU
--- NOTE | 2023-08-30 10:58 | P.PNGS_ITS ---
Subjective Subjective Date of Service: 08/31/23 Interval history: Feels well. Mild incisional pain. Uses the spirometer. Walking Physical Exam 2 Vital Signs: Vital Signs: Last Vital Signs Temp 98.4 F 08/30/23 10:27 Pulse 69 08/30/23 10:27 Resp 16 08/30/23 10:27 BP 109/66 08/30/23 10:27 Pulse Ox 92 08/30/23 10:27 O2 Del Method Room Air 08/30/23 10:27 BMI result Body Mass Index 36.0 GI: Inspection: Yes normal to inspection, Yes incision (clean, dry and intact), Yes obesity and Yes other (Drain with serosanguinous fluid) P alpation (GI): Soft to palpation Extrem: Right lower extremity: normal to inspection (no calf tenderness) L eft lower extremity: normal to inspection (no calf tenderness) Objective Data Active Medications Albuterol Sulfate (Albuterol Sulfate (0.083%) 2.5 Mg/3 Ml Vial.Neb) 2.5 mg INHALE ONCE PRN PRN Reason: Shortness of Breath/Wheezing Lactated Ringer's (Lr) 1,000 mls @ 100 mls/hr IVCONT .Q10H KARTHIKEYAN Lactated Ringer's (Lr) 1,000 mls @ 999 mls/hr IV .Q1H1M KARTHIKEYAN Stop: 08/30/23 11:30 Last Admin: 08/30/23 10:51 Dose: 999 mls/hr Documented By: AKIL Labs 08/31/23 06:05 08/31/23 06:05 Labs: Laboratory Results - last 24 hr 08/30/23 10:25 POC Glucose 98 Procedures Date of Service Date of Service: 08/31/23 Progress Note: A&P Assessment and plan (1) Obesity: Status: Acute Assessment and Plan: s/p laparoscopic sleeve gastrectomy of the gastric pouch, lysis of adhesions, diaphragmatic hernia repair and gastropexy Doing well Will check am CXR/ abdominal xray Keep NPO and Kauffman (2) BMI 35.0-35.9,adult: Status: Acute (3) Sleep apnea treated with continuous positive airway pressure (CPAP): Status: Acute (4) Hypothyroid: Status: Acute (5) Diabetes mellitus: Status: Acute (6) Asthma: Status: Acute (7) COPD (chronic obstructive pulmonary disease): Status: Acute (8) Insomnia: Status: Acute (9) Anxiety and depression: Status: Acute (10) DJD (degenerative joint disease): Status: Acute Time Spent With Patient Time: Total time managing care of this patient today ____ minutes. Quality Stroke Does the patient have a stroke diagnosis?: No VTE Prior VTE?: No VTE Risk Level:: Surgical - moderate VTE Device Contraindication: N/A - Device Ordered VTE Drug Contraindication: Treatment Not Indicated
--- NOTE | 2023-08-30 11:07 | PM.DS ---
DS: Providers Provider Date of Service: 09/02/23 Date of admission: 08/30/23 09:17 Primary care physician: Richelle Pandya MD DS: Diagnosis Discharge Diagnosis (1) Obesity: Status: Acute (2) BMI 35.0-35.9,adult: Status: Acute (3) Sleep apnea treated with continuous positive airway pressure (CPAP): Status: Acute (4) Hypothyroid: Status: Acute (5) Diabetes mellitus: Status: Acute (6) Asthma: Status: Acute (7) COPD (chronic obstructive pulmonary disease): Status: Acute (8) Insomnia: Status: Acute (9) Anxiety and depression: Status: Acute (10) DJD (degenerative joint disease): Status: Acute DS: Summary Hospital Course Hospital Course: ADMITTING DIAGNOSIS: obesity after gastrtic bypass, adrenal insufficiency, LEONCIO, COPD,Hypothyroidism, DM, asthma DISCHARGE DIAGNOSIS: same, s/p laparoscopic sleeve gastrectomy and repair diaphragmatic hernia PAST SURGICAL HISTORY: gastric bypass, thyroidectomy, bowel surgeries PROCEDURE: upper endoscopy, laparoscopic sleeve gastrectomy and repair of diaphragmatic hernia hernia DISCHARGE SUMMARY: History of Present Illness: The patient is a 53 year-old woman with a BMI of 41.8 kg/m2 and associated co-morbidities as described above. The patient had extensive work-up, lost 31.5 lbs preoperatively and was electively scheduled for laparoscopic, possible open sleeve gastrectomy and gastropexy. Risks and complications of the surgery were discussed with the patient in advance, particularly the possibility of , pulmonary embolism, anastomotic leak, bleeding, bowel injury, GERD, cardiac, renal or pulmonary complications. The patient understood all the risks and was in agreement with the surgical plan. Hospital Course: The patient underwent an uneventful laparoscopic sleeve gastrectomy with gastropexy and repair of diaphragmatic hernia on the day of admission. Postoperatively, the patient was transferred to the surgical floor. The patient received IV Acetaminophen and IV dilaudid for pain control. Patient was started on bariatric phase 1 diet POD #0. On postoperative day one, the patient was feeling well without nausea, vomiting, fevers, or tachycardia. The patient had some mild incisional pain and the abdomen was soft. On the morning of postoperative day one, the patient was continued on 1 ounce of water or ice every half hour. During the day, the patient did fairly well, having some incisional pain, but able to ambulate adequately and to tolerate liquids well. Since the patient is doing well, we decided that the patient was ready to be discharged. The patient was given instructions to follow-up with me next week and to call my office for any fever over 101, persistent abdominal pain, nausea, vomiting, GERD, symptoms of DVT such as calf tenderness, or leg swelling, or pulmonary embolism such as chest pain or shortness of breath. The patient was also instructed to drink 40-60 ounces of liquids per day using the 1-ounce cups. The patient had been given prescriptions for Tylenol for pain, Zofran prn for nausea, and pantoprazole and carafate previously. The patient was encouraged to ambulate and use the incentive spirometer. The patient was allowed to shower, but no baths, and encouraged to stay active at home. All of these instructions were given to the patient personally. All questions were answered and the patient understood all instructions, the instructions were also given to the patient in print. Time Attestation Discharge coordination time: Less than 30 minutes Quality: Safe Use of Opioids Does Pt have an Active Cancer Diagnosis on the Problem List?: No Quality: Stroke Does the patient have a stroke diagnosis?: No Physical Exam Vital Signs: Vital Signs: Last Vital Signs Temp 98.4 F 08/30/23 10:27 Pulse 69 08/30/23 10:27 Resp 16 08/30/23 10:27 BP 109/66 08/30/23 10:27 Pulse Ox 92 08/30/23 10:27 O2 Del Method Room Air 08/30/23 10:27 BMI result Body Mass Index 36.0 DS: Data Data Completed and Pending Labs on day of discharge: Laboratory Results - last 24 hr 08/30/23 10:25 POC Glucose 98 Discharge Plan Discharge Anticipated Discharge Date/Time: 09/02/23 10:01 Patient Disposition: Home, Self-Care Discharge Diagnosis: s/p sleeve gastrectomy, revision of previous gastric bypass Referrals: Richelle Pandya MD [Primary Care Provider] - 1 Week Discharge Medications: Continued Trelegy Ellipta 200-62.5-25 mcg blister with device 1 ea inhalation DAILY albuterol sulfate 90 mcg/actuation HFA aerosol inhaler 2 puff inhalation Q4-6H PRN (Reason: Wheezing) levothyroxine 50 mcg tablet 50 mcg PO DAILY levocetirizine 5 mg tablet 5 mg PO DAILY olanzapine 5 mg tablet 10 mg PO BID doxepin 50 mg capsule 150 mg PO BEDTIME (DME) Oxygen Home Use Kit See Rx Instructions .Route Patient Comments: CPAP machine Rx Instructions: As directed nicotine [Nicoderm CQ] 21 mg/24 hr patch 24 hour 1 patch transdermal DAILY lurasidone [Latuda] 20 mg tablet 3 mg PO DAILY Rx Instructions: must administer with food (at least 350 calories) pantoprazole 40 mg tablet,delayed release (DR/EC) 40 mg PO DAILY Qty: 90 0RF sucralfate 100 mg/mL suspension 10 ml PO BID Qty: 600 2RF ondansetron 4 mg tablet,disintegrating 4 mg PO Q12H Qty: 20 0RF Rx Instructions: Only take one every 12 hours as needed if you have nausea Held tizanidine 2 mg capsule 2 mg PO TID PRN (Reason: Muscle Spasm) Hold Instructions: Resume on 09/30/23. hydroxyzine HCl 50 mg tablet 100 mg PO TID Hold Instructions: Discuss with Dr Reyes roflumilast [Daliresp] 500 mcg tablet 500 mcg PO DAILY Hold Instructions: Resume on 09/16/23. Discontinued Ensure High Protein Liquid 1 ea PO TID Qty: 5688 6RF hydrocortisone 10 mg tablet 10 mg PO TID Ozempic 0.25 mg or 0.5 mg(2 mg/1.5 mL) pen injector 0.25 mg subcut QWEEK Rx Instructions: for 4 doses Vitron-C 65 mg iron- 125 mg tablet,delayed release (DR/EC) 1 tab PO DAILY Qty: 30 2RF Rx Instructions: swallow whole; do not chew/break/dissolve/open cholecalciferol (vitamin D3) 125 mcg (5,000 unit) capsule 125 mcg PO DAILY Qty: 30 2RF mecobalamin (vitamin B12) 1,000 mcg tablet,disintegrating 1,000 mcg sublingual DAILY Qty: 30 2RF Rx Instructions: place tablet under tongue and allow to dissolve for at least30 secs before swallowing vitamin A palmitate 3,000 mcg (10,000 unit) capsule 10,000 unit PO DAILY Qty: 30 1RF polyethylene glycol 3350 [Miralax] 17 gram powder in packet 17 g PO DAILY Qty: 14 0RF Rx Instructions: Mix each packet with 8oz of water, Crystal light, or Gatorade zero, or Propel and do 7 packets on 08/28/23 and another 7 packets on 08/29/23 Discharge Orders: Discharge Order (Routine); Ordered 09/02/23 Ordered By: Rodrigo Reyes Activity on Discharge: No heavy lifting Stand Alone Forms: Patient Portal Discharge page Care Plan Goals: weight loss Health Concerns: obesity Plan of Treatment: No tub baths, sex or returning to work until discussed at first post op appointment. No exercise, alcohol, tobacco or illegal drug use. Continue to use incentive spirometer hourly while awake. Walk in home for 5- 10 minutes every 2 hours during the first week. Continue phase 1 diet today and start phase 2 diet tomorrow morning. Follow all instructions in the bariatric handbook and call with any questions. 1. Please call your doctor or come back to the emergency room should any new symptoms arise. 2. You will receive a courtesy call from [facility] 24-48 hours after discharge. 3. Activity: abstain from alcohol, practice limited stair climbing, no bending, no driving, no exercise, no illicit substances, no lifting, no sex, no tub bath, no work. 4. Diet: continue as discussed with bariatric team.. 5. Dressing Change/Wound Care: Do not change or remove surgical dressings unless they are wet or soiled. 6. Call your doctor if: - Your temperature exceeds 101.5 F - You experience excessive pain or swelling - You have an unexpected reaction to medication - You have excessive bleeding - You experience continued vomiting/nausea - Your incision begins to separate - Your incision shows signs of infection such as increased redness, swelling, excessive pain, heat, or drainage (light blood or clear fluid is normal) 7. General instructions: No lifting greater than 5 lbs for 1 week and not more than 20lbs the next 3?weeks. No driving until seen at the office in 5-7 days after surgery. If you do not move your bowels in the next 2 days, please tell?Dr. Reyes. Please walk around your home every hour or two to prevent blood clots from forming in your legs. You do not need to wake from sleeping to walk. Please sleep in a bed or couch to prevent kinking at the hips and knees. Please take your incentive spirometer (your lung strategy planning consultant) home with you and use it for the next few days to prevent pneumonia. You may shower, no hot tubs, baths or swimming pools.?Please follow the post op diet instructions you are?given by Dr Davin webber? and text me daily at 5-6pm for an update.?If you have any issues or concerns or questions please communicate this to him via text.? The Celebrate shakes have all of the bariatric vitamins you need if you consume these shakes. If you are drinking other protein shakes, you will need to purchase the Celebrate multivitamins and calcium that are available in the hospital gift shop on the first floor of the [facility].??Do not take anything without first discussing with Dr Reyes. Please make sure you are consuming at least 40 ounces of fluids per day starting the?day AFTER your discharge from the hospital. Always drink 1-2 ml per minute using the 5ml?syringe. If you drink faster you may experience?bloating,?gas pain, burping, nausea or heartburn. In that case please slow down your pace and use the syringe to?understand better the?proper?pace and volume of drinking. Do not hesitate to contact the office with any questions at . The patient's medical history has been reviewed and they are considered low risk for post op DVT and therefore DVT prophylaxis is not considered necessary. Travel after surgery was reviewed. The patient has not disclosed any travel plans during the first 30 days after surgery and they have been advised that within the first 30 days after surgery any bus, plane, train or car travel over 2 hours in duration is contraindicated due to the possibility of developing blood clots from immobility. Any travel, needs to include periods of ambulation of 10 minutes in duration every 2 hours. The patient was instructed to discuss any plans for travel during this period with their bariatric surgeon. Assessment: stable, post op sleeve gastrectomy after previous gastric bypass
[2023-08-30 16:56] LABS: Glucose, Whole Blood 154 mg/dL (60-115)
[2023-08-30 17:19] LABS: Hemoglobin 13.4 g/dl (12.0-16.0)
[2023-08-30 17:24] LABS: Anion Gap 15 (12-20); Blood Urea Nitrogen 11 mg/dL (9-16); Calcium 8.7 mg/dL (8.4-10.2); Carbon Dioxide 22 mmol/L (22-29); Chloride 107 mmol/L (96-108); Creatinine Clr Calc Pharmacy 81.5; Estimated Glomerular Filt Rate > 60; Glucose Random 156 mg/dL (60-115); Potassium 4.6 mmol/L (3.3-5.1); Sodium 139 mmol/L (135-145)
[2023-08-30] MEDS: ceFAZolin Sodium/Dextrose,Iso 2 GM/50 ML PIGGYBACK IV (18:10)
[2023-08-30] MEDS: Lactated Ringers 1,000 ML 125 ML IVCONT (19:56)
[2023-08-30] MEDS: 0.9 % Sodium Chloride Flush 3 ML SYRINGE IVFLUSH (19:56)
[2023-08-30] MEDS: Famotidine/PF 20 MG/2 ML VIAL IVPUSH (20:00)
[2023-08-30] MEDS: Acetaminophen 1,000 MG/100 ML PIGGYBACK 16.7 MG IV (20:00)
--- NOTE | 2023-08-30 20:28 | PC.RT ---
reinaldo called at 7:42pm for pt inhaler
[2023-08-30] MEDS: HYDROmorphone HCl 0.5 MG/0.5 ML SYRINGE 0.25 MG IVPUSH (20:35)
--- NOTE | 2023-08-30 20:55 | PC.RT ---
pharmacy called 2pt med still not available pt in no distres sleeping
[2023-08-30] MEDS: ondansetron HCL 4 MG/2 ML VIAL IVPUSH (23:11)
[2023-08-31] VITALS (8 sets, daily range): BP systolic 119–131; BP diastolic 64–83; PULSE 59–77; RESP 18–19; TEMP 36.1–36.5; O2SAT 94–98
[2023-08-31] MEDS: HYDROmorphone HCl 0.5 MG/0.5 ML SYRINGE 0.25 MG IVPUSH ×4 (01:31→19:23)
[2023-08-31] MEDS: Acetaminophen 1,000 MG/100 ML PIGGYBACK 16.7 MG IV ×4 (01:47→19:23)
[2023-08-31] MEDS: Lactated Ringers 1,000 ML 125 ML IVCONT ×3 (03:52→19:24)
[2023-08-31] MEDS: Levothyroxine Sodium 100 MCG/5 ML VIAL 25 MCG IVPUSH (05:41)
[2023-08-31 06:11] LABS: MANUAL DIFF FLAG NO
[2023-08-31 06:29] LABS: Basophils Percent Auto 0.3 % (0-2); Eosinophils Percent Auto 0.1 % (0-4); Hemoglobin 12.6 g/dl (12.0-16.0); Imm Gran Abs Auto 0.05 X10*3/uL (0.00-0.03); Imm Gran Pct Auto 0.4 % (0.0-0.4); Lymphocytes Absolute Auto 1.6 X10*3/uL (1.2-4.9); Lymphocytes Percent Auto 13.2 % (20-40); Mean Corpuscular HGB Conc 33.2 g/dl (31.0-35.0); Mean Corpuscular Volume 84.4 fL (80.0-98.0); Mean Platelet Volume 9.9 fL (9.4-12.3); Monocytes Absolute Auto 1.1 X10*3/uL (0.1-1.2); Monocytes Percent Auto 9.1 % (2-11); Neutrophils Absolute Auto 9.1 x10*3/uL (2.0-8.3); Neutrophils Percent Auto 76.9 % (45-73); Platelet Count 330 X10*3/uL (160-400); Red Cell Distribution Width 17.8 % (11.0-16.0); White Blood Count 11.8 X10*3/uL (4.8-10.8)
[2023-08-31 06:32] LABS: Anion Gap 14 (12-20); Blood Urea Nitrogen 12 mg/dL (9-16); Calcium 8.8 mg/dL (8.4-10.2); Carbon Dioxide 27 mmol/L (22-29); Chloride 104 mmol/L (96-108); Creatinine Clr Calc Pharmacy 95.8; Estimated Glomerular Filt Rate > 60; Glucose Random 124 mg/dL (60-115); Sodium 140 mmol/L (135-145)
[2023-08-31] MEDS: Famotidine/PF 20 MG/2 ML VIAL IVPUSH ×2 (07:33→19:24)
[2023-08-31] MEDS: Albuterol Sulfate 90 MCG 8 GM INHALER 2 PUFF INHALE ×4 (07:52→23:44)
[2023-08-31] MEDS: ondansetron HCL 4 MG/2 ML VIAL IVPUSH (11:21)
--- NOTE | 2023-08-31 15:48 | MHC.CM.PN ---
IMM 08/31/23 Female 53 S/P Hiatal hernia repair and gastric sleeve. She lives with her kids 14-19yrs. She requires assistance with ADLs. She has a TRACKWALKER in place. DP home with resumption of TRACKWALKER services. Patient will need assit with transport.
[2023-08-31] MEDS: 0.9 % Sodium Chloride Flush 3 ML SYRINGE IVFLUSH (19:24)
--- NOTE | 2023-08-31 20:18 | P.PNGS_ITS ---
Subjective Subjective Date of Service: 09/01/23 Interval history: Feels overall.better. The incisional pain has improved. She continues to have bilateral shoulder pain. Has walked multiple times and uses the spirometer up to 2000ml Abdominal xray confirms good position of the drain and the chest XRAY does not reveal any pneumothorax or pleural effusion. Physical Exam 2 Vital Signs: Vital Signs: Last Vital Signs Temp 97.6 F 08/31/23 19:34 Pulse 65 08/31/23 19:34 Resp 18 08/31/23 19:34 BP 131/69 08/31/23 19:34 Pulse Ox 94 08/31/23 19:34 O2 Del Method Room Air 08/31/23 19:34 O2 Flow Rate 2 08/30/23 23:08 BMI result Body Mass Index 36.0 GI: Inspection: Yes incision (clean, dry and intact), Yes obesity and Yes other (Jose drain with serosanguinous fluid) Palpation (GI): Soft to palpation Extrem: Right lower extremity: normal to inspection (no calf tenderness) L eft lower extremity: normal to inspection (no calf tenderness) Objective Data Active Medications Albuterol Sulfate (Albuterol Sulfate (0.083%) 2.5 Mg/3 Ml Vial.Neb) 2.5 mg INHALE ONCE PRN PRN Reason: Shortness of Breath/Wheezing Albuterol Sulfate (Albuterol Sulfate 90 Mcg 8 Gm Inhaler) 2 puff INHALE Q4H [facility] Last Admin: 08/31/23 19:31 Dose: Not Given Documented By: LINA Non-Admin Reason: Patient Refused Famotidine (Famotidine/Pf 20 Mg/2 Ml Vial) 20 mg IVPUSH BID [facility] Last Admin: 08/31/23 19:24 Dose: 20 mg Documented By: YOLY Fentanyl (Fentanyl Citrate/Pf 100 Mcg/2 Ml Vial) 50 mcg IVPUSH Q5M PRN; Protocol PRN Reason: Pain, Severe (Pain Scale 7-10) Hydromorphone HCl (Hydromorphone Hcl 0.5 Mg/0.5 Ml Syringe) 0.5 mg IVPUSH Q5M PRN; Protocol PRN Reason: Pain, Severe (Pain Scale 7-10) Hydromorphone HCl (Hydromorphone Hcl 0.5 Mg/0.5 Ml Syringe) 0.25 mg IVPUSH Q4H PRN; Protocol PRN Reason: Pain, Moderate(Pain Scale 4-6) Last Admin: 08/31/23 19:23 Dose: 0.25 mg Documented By: YOLY Promethazine HCl 6.25 mg/ (Sodium Chloride) 50.25 mls @ 201 mls/hr IV ONCE PRN PRN Reason: Nausea and Vomiting Lactated Ringer's (Lr) 1,000 mls @ 125 mls/hr IVCONT .Q8H [facility] Last Admin: 08/31/23 19:24 Dose: 125 mls/hr Documented By: YOLY Acetaminophen (Ofirmev) 1,000 mg in 100 mls @ 16.7 mls/hr IV .Q6H [facility] Last Admin: 08/31/23 19:23 Dose: 16.7 mls/hr Documented By: YOLY Levothyroxine Sodium (Levothyroxine Sodium 100 Mcg/5 Ml Vial) 25 mcg IVPUSH DAILY@0600 [facility] Last Admin: 08/31/23 05:41 Dose: 25 mcg Documented By: YOLY Metoclopramide HCl (Metoclopramide Hcl 10 Mg/2 Ml Vial) 10 mg IVPUSH Q6H PRN PRN Reason: Nausea Ondansetron HCl (Ondansetron Hcl 4 Mg/2 Ml Vial) 4 mg IVPUSH ONCE PRN PRN Reason: Nausea and Vomiting Ondansetron HCl (Ondansetron Hcl 4 Mg/2 Ml Vial) 4 mg IVPUSH Q8H PRN PRN Reason: Nausea Last Admin: 08/31/23 11:21 Dose: 4 mg Documented By: COTEMA Sodium Chloride (0.9 % Sodium Chloride Flush 3 Ml Syringe) 3 ml IVFLUSH QSHIFT [facility] Last Admin: 08/31/23 19:24 Dose: 3 ml Documented By: YOLY Labs 09/01/23 06:23 08/31/23 06:05 Labs: Laboratory Results - last 24 hr 08/31/23 06:05 MCV 84.4 MCH 28.0 MCHC 33.2 RDW 17.8 H Plt Count 330 MPV 9.9 Immature Gran % (Auto) 0.4 Neut % (Auto) 76.9 H Lymph % (Auto) 13.2 L Foard % (Auto) 9.1 Eos % (Auto) 0.1 Baso % (Auto) 0.3 Lymph # (Auto) 1.6 Foard # (Auto) 1.1 Eos # (Auto) 0.0 Baso # (Auto) 0.0 Abs Immat Gran (auto) 0.05 H Absolute Neuts (auto) 9.1 H Absolute Nucleated RBC 0.000 Nucleated RBC % (auto) 0.0 Anion Gap 14 Estim Creat Clear Calc 95.8 Estimated GFR > 60 Random Glucose 124 H Calcium 8.8 Procedures Date of Service Date of Service: 09/01/23 Progress Note: A&P Assessment and plan (1) Status post sleeve gastrectomy: Status: Acute Assessment and Plan: 1. D/C Jamari 2. Start bariatric phase 1 3. Continue physical activity and incentive spirometer (2) S/P repair of paraesophageal hernia: Status: Acute Time Spent With Patient Time: Total time managing care of this patient today ____ minutes. Quality Stroke Does the patient have a stroke diagnosis?: No VTE Prior VTE?: No VTE Risk Level:: Surgical - moderate VTE Device Contraindication: N/A - Device Ordered VTE Drug Contraindication: Treatment Not Indicated
[2023-09-01] VITALS (11 sets, daily range): BP systolic 107–143; BP diastolic 66–90; PULSE 53–62; RESP 16–19; TEMP 36.1–36.4; O2SAT 92–98
[2023-09-01] MEDS: Acetaminophen 1,000 MG/100 ML PIGGYBACK 16.7 MG IV ×4 (01:09→19:52)
[2023-09-01] MEDS: Lactated Ringers 1,000 ML 125 ML IVCONT (03:11)
[2023-09-01] MEDS: Levothyroxine Sodium 100 MCG/5 ML VIAL 25 MCG IVPUSH (06:09)
[2023-09-01 06:33] LABS: Baso%MD 0.4 %; Eos%MD 0.6 %; Hematocrit 33.6 % (37.0-47.0); Hemoglobin 11.1 g/dl (12.0-16.0); IG%MD 0.2 %; Lymph%MD 30.1 %; Mean Corpuscular Hemoglobin 28.2 pg (27.0-33.0); Mean Corpuscular Volume 85.3 fL (80.0-98.0); Mean Platelet Volume 9.7 fL (9.4-12.3); Mono%MD 8.8 %; Neut%MD 59.9 %; Platelet Count 267 X10*3/uL (160-400); Red Blood Count 3.94 X10*6/uL (4.20-5.50); Red Cell Distribution Width 17.7 % (11.0-16.0); White Blood Count 9.8 X10*3/uL (4.8-10.8)
--- NOTE | 2023-09-01 06:41 | HO.POSTANES ---
Post Anesthesia Evaluation Post Anesthesia Evaluation Date of Service: 09/01/23 Vital Signs: Vital Signs Temp Pulse Resp BP Pulse Ox O2 Del Method 09/01/23 03:23 97 F 57 19 111/68 97 CPAP 08/31/23 23:45 59 18 08/31/23 23:27 97.1 F 59 18 130/83 94 Room Air 08/31/23 19:34 97.6 F 65 18 131/69 94 Room Air Anesthesia: General Endotracheal-GETA Mental Status: Awake Pain Control: Satisfactory Nausea/Vomiting: None Hydration: Adequate Anesthesia-Related Issues: No Anes. Related Issues
[2023-09-01] MEDS: Famotidine/PF 20 MG/2 ML VIAL IVPUSH ×2 (07:13→19:58)
[2023-09-01] MEDS: Albuterol Sulfate 90 MCG 8 GM INHALER 2 PUFF INHALE ×4 (08:09→20:32)
[2023-09-01 08:51] LABS: Atypical Lymph Absolute Manual 0.2 x10*3/uL; Atypical Lymphs Percent Manual 2 % (0-6); Band Neutrophils Percent 0 % (3-5); Lymphocytes Absolute Manual 2.5 X10*3/uL (1.2-4.9); Lymphocytes Percent Manual 26 % (20-40); Monocytes Absolute Manual 0.5 X10*3/uL (0.1-1.2); Monocytes Percent Manual 5 % (2-11); Neutrophils Absolute Manual 6.6 X10*3/uL (2.0-8.3); Neutrophils Percent Manual 67 % (45-73)
[2023-09-01 08:53] LABS: Hypochromasia 1+ (5-14) /OIF; RBC Morphology NOTED; Target Cells 1+ (5-14) /OIF
[2023-09-01 08:54] LABS: Platelet Estimate NORMAL (NORMAL); Platelet Morphology Comment NORMAL
--- NOTE | 2023-09-01 10:11 | PM.PNGS ---
Subjective Subjective Date of Service: 09/02/23 Interval history: Incisional and shoulder pain has improved. Is tolerating bariatric phase 1 diet Physical Exam Vital Signs: Vital Signs: Last Vital Signs Temp 96.9 F 09/01/23 07:33 Pulse 53 09/01/23 08:09 Resp 18 09/01/23 08:09 BP 107/66 09/01/23 07:33 Pulse Ox 92 09/01/23 08:10 O2 Del Method Room Air 09/01/23 08:10 O2 Flow Rate 2 08/30/23 23:08 BMI result Body Mass Index 36.0 GI: Inspection: Yes normal to inspection, Yes incision (clean, dry and intact), Yes obesity and Yes other (Jose drain with serosanguinous fluid) Palpation (GI): Soft to palpation Extrem: Right lower extremity: normal to inspection (no calf tenderness) Left lower extremity: normal to inspection ( calf tenderness) Objective Data Active Medications Albuterol Sulfate (Albuterol Sulfate (0.083%) 2.5 Mg/3 Ml Vial.Neb) 2.5 mg INHALE ONCE PRN PRN Reason: Shortness of Breath/Wheezing Albuterol Sulfate (Albuterol Sulfate 90 Mcg 8 Gm Inhaler) 2 puff INHALE Q4H [facility] Last Admin: 09/01/23 08:09 Dose: 2 puff Documented By: LAKHWINDER Famotidine (Famotidine/Pf 20 Mg/2 Ml Vial) 20 mg IVPUSH BID [facility] Last Admin: 09/01/23 07:13 Dose: 20 mg Documented By: COTEMA Fentanyl (Fentanyl Citrate/Pf 100 Mcg/2 Ml Vial) 50 mcg IVPUSH Q5M PRN; Protocol PRN Reason: Pain, Severe (Pain Scale 7-10) Hydromorphone HCl (Hydromorphone Hcl 0.5 Mg/0.5 Ml Syringe) 0.5 mg IVPUSH Q5M PRN; Protocol PRN Reason: Pain, Severe (Pain Scale 7-10) Hydromorphone HCl (Hydromorphone Hcl 0.5 Mg/0.5 Ml Syringe) 0.25 mg IVPUSH Q4H PRN; Protocol PRN Reason: Pain, Moderate(Pain Scale 4-6) Last Admin: 08/31/23 19:23 Dose: 0.25 mg Documented By: YOLY Promethazine HCl 6.25 mg/ (Sodium Chloride) 50.25 mls @ 201 mls/hr IV ONCE PRN PRN Reason: Nausea and Vomiting Lactated Ringer's (Lr) 1,000 mls @ 100 mls/hr IVCONT .Q10H [facility] Last Admin: 09/01/23 03:11 Dose: 125 mls/hr Documented By: YOLY Acetaminophen (Ofirmev) 1,000 mg in 100 mls @ 16.7 mls/hr IV .Q6H [facility] Last Admin: 09/01/23 07:13 Dose: 16.7 mls/hr Documented By: COTEMA Levothyroxine Sodium (Levothyroxine Sodium 100 Mcg/5 Ml Vial) 25 mcg IVPUSH DAILY@0600 [facility] Last Admin: 09/01/23 06:09 Dose: 25 mcg Documented By: YOLY Metoclopramide HCl (Metoclopramide Hcl 10 Mg/2 Ml Vial) 10 mg IVPUSH Q6H PRN PRN Reason: Nausea Ondansetron HCl (Ondansetron Hcl 4 Mg/2 Ml Vial) 4 mg IVPUSH ONCE PRN PRN Reason: Nausea and Vomiting Ondansetron HCl (Ondansetron Hcl 4 Mg/2 Ml Vial) 4 mg IVPUSH Q8H PRN PRN Reason: Nausea Last Admin: 08/31/23 11:21 Dose: 4 mg Documented By: JUAN LUIS Sodium Chloride (0.9 % Sodium Chloride Flush 3 Ml Syringe) 3 ml IVFLUSH QSHIFT [facility] Last Admin: 09/01/23 07:11 Dose: Not Given Documented By: JUAN LUIS Non-Admin Reason: IV Running Labs 09/02/23 06:00 08/31/23 06:05 Labs: Laboratory Results - last 24 hr 09/01/23 06:23 MCV 85.3 MCH 28.2 MCHC 33.0 RDW 17.7 H Plt Count 267 MPV 9.7 Absolute Nucleated RBC 0.000 Nucleated RBC % (auto) 0.0 Neutrophils % (Manual) 67 Band Neutrophils % 0 L Lymphocytes % (Manual) 26 Atypical Lymphs % (Man) 2 Monocytes % (Manual) 5 Abs Neuts (Manual) 6.6 Lymphocytes # (Manual) 2.5 Atyp Lymphs # (Manual) 0.2 Monocytes # (Manual) 0.5 Platelet Estimate NORMAL Plt Morphology Comment NORMAL RBC Morphology NOTED Hypochromasia 1+ (5-14) Target Cells 1+ (5-14) C-Reactive Protein 1.10 H Procedures Date of Service Date of Service: 09/02/23 Progress Note: A&P Assessment and plan (1) Status post sleeve gastrectomy: Status: Acute Assessment and Plan: 1. Advance to phase 3 diet 2. Possible discharge in the afternoon (2) S/P repair of paraesophageal hernia: Status: Acute Time Spent With Patient Time: Total time managing care of this patient today ____ minutes. Quality Stroke Does the patient have a stroke diagnosis?: No VTE Prior VTE?: No VTE Risk Level:: Surgical - moderate VTE Device Contraindication: N/A - Device Ordered VTE Drug Contraindication: Treatment Not Indicated
[2023-09-01] MEDS: Lactated Ringers 1,000 ML 100 ML IVCONT ×2 (12:21→21:40)
[2023-09-01] MEDS: 0.9 % Sodium Chloride Flush 3 ML SYRINGE IVFLUSH (19:58)
[2023-09-02] MEDS: Acetaminophen 1,000 MG/100 ML PIGGYBACK 16.7 MG IV ×2 (01:38→08:01)
[2023-09-02 04:00] VITALS: BP 137/82; PULSE 56; RESP 16; TEMP 36.4; O2SAT 94
[2023-09-02] MEDS: Levothyroxine Sodium 100 MCG/5 ML VIAL 25 MCG IVPUSH (06:04)
[2023-09-02 07:37] VITALS: BP 152/89; PULSE 56; RESP 18; TEMP 35.6; O2SAT 95
[2023-09-02 07:53] LABS: Baso%MD 0.6 %; Eos%MD 1.6 %; Hematocrit 35.6 % (37.0-47.0); Hemoglobin 11.6 g/dl (12.0-16.0); IG%MD 0.3 %; Mean Corpuscular HGB Conc 32.6 g/dl (31.0-35.0); Mean Corpuscular Hemoglobin 27.9 pg (27.0-33.0); Mean Corpuscular Volume 85.6 fL (80.0-98.0); Mean Platelet Volume 10.9 fL (9.4-12.3); Mono%MD 8.9 %; Neut%MD 59.6 %; Platelet Count 300 X10*3/uL (160-400); Red Blood Count 4.16 X10*6/uL (4.20-5.50); Red Cell Distribution Width 17.8 % (11.0-16.0); White Blood Count 8.8 X10*3/uL (4.8-10.8)
[2023-09-02] MEDS: Lactated Ringers 1,000 ML 100 ML IVCONT (07:59)
[2023-09-02] MEDS: Famotidine/PF 20 MG/2 ML VIAL IVPUSH (08:02)
[2023-09-02 08:19] LABS: Alanine Aminotransferase 85 U/L (0-31); Albumin Level 3.3 g/dL (3.5-5.0); Alkaline Phosphatase 175 U/L (39-117); Anion Gap 12 (12-20); Aspartate Amino Transferase 31 U/L (5-31); Bilirubin Total 0.5 mg/dL (0.0-1.0); Blood Urea Nitrogen 10 mg/dL (9-16); C Reactive Protein 1.74 mg/dL (< or = 0.50); Calcium 8.7 mg/dL (8.4-10.2); Carbon Dioxide 29 mmol/L (22-29); Chloride 104 mmol/L (96-108); Creatinine Clr Calc Pharmacy 105.8; Estimated Glomerular Filt Rate > 60; Potassium 3.9 mmol/L (3.3-5.1); Sodium 141 mmol/L (135-145)
[2023-09-02 08:22] LABS: Glucose Random 56 mg/dL (60-115)
[2023-09-02 08:35] LABS: Band Neutrophils Percent 0 % (3-5); Basophils Abs Manual 0.1 X10*3/uL (0.0-0.2); Basophils Percent Manual 1 % (0-2); Eosinophils Absolute Manual 0.3 X10*3/uL (0.0-0.4); Eosinophils Percent Manual 3 % (0-4); Lymphocytes Absolute Manual 2.2 X10*3/uL (1.2-4.9); Lymphocytes Percent Manual 25 % (20-40); Monocytes Absolute Manual 0.6 X10*3/uL (0.1-1.2); Monocytes Percent Manual 7 % (2-11); Neutrophils Absolute Manual 5.6 X10*3/uL (2.0-8.3); Neutrophils Percent Manual 64 % (45-73); RBC Morphology NORMAL
[2023-09-02 08:36] LABS: Platelet Estimate NORMAL (NORMAL); Platelet Morphology Comment NORMAL
[2023-09-02 08:44] LABS: Glucose, Whole Blood 55 mg/dL (60-115)
[2023-09-02] MEDS: Albuterol Sulfate 90 MCG 8 GM INHALER 2 PUFF INHALE ×2 (08:48→12:24)
[2023-09-02 08:50] VITALS: PULSE 64; RESP 16; O2SAT 93
[2023-09-02] MEDS: Dextrose 50 % 25 GM/50 ML SYRINGE IVPUSH (09:02)
[2023-09-02 09:25] LABS: Glucose, Whole Blood 136 mg/dL (60-115)
[2023-09-02 10:00] VITALS: O2SAT 95
[2023-09-02 11:19] VITALS: BP 142/88; PULSE 67; RESP 18; TEMP 36; O2SAT 93
--- NOTE | 2023-09-02 12:01 | MHC.CM.PN ---
PT WILL DC HOME TODAY TRANSPORT TBD SHUTTLE VS BUS
[2023-09-02 12:24] VITALS: PULSE 67; RESP 18; O2SAT 94
--- NOTE | 2023-09-02 14:50 | PC.NURSE ---
Pt instructed on SAVANNA drain care, emptying. Able to perform SAVANNA emptying herself in front of this nurse. Verbalizes understanding of care
== END 2023-09-02 14:49 | disposition home or self-care (01) | DRG 620 ==
LOC: HO.SSSA 11:02 → HO.S3 18:43
PROVIDERS: Physician Assistant; Admitting Provider Surgery; PCP Internal Medicine; Visit Provider Surgery
PROC: 0DQ64ZZ Repair Stomach, Percutaneous Endoscopic Approach (ICD-10-PCS; CPT 43771; principal; 2023-08-30 11:00)
DX: E66.09 Other obesity due to excess calories (principal); K44.0 Diaphragmatic hernia with obstruction, without gangrene; G47.30 Sleep apnea, unspecified; J44.9 Chronic obstructive pulmonary disease, unspecified; E03.9 Hypothyroidism, unspecified; E11.9 Type 2 diabetes mellitus without complications; F41.9 Anxiety disorder, unspecified; F32.A Depression, unspecified; Z68.41 Body mass index [BMI] 40.0-44.9, adult; Z98.1 Arthrodesis status; Z98.84 Bariatric surgery status; Z87.891 Personal history of nicotine dependence; Z79.85 Long-term (current) use of injectable non-insulin antidiabetic drugs; Z79.890 Hormone replacement therapy; Z79.899 Other long term (current) drug therapy
CPT/HCPCS: 36415; 71046; 74018; 80048; 80053; 80061; 82947; 83036; 83525; 84443; 85007; 85014; 85018; 85025; 85027; 85610; 85730; 86140; 86850; 86900; 86901; 88307; 88342; 93005; 94640; 99024; C1758; C9145; J0131; J0690; J1100; J1170; J2250; J2405; J2704; J2795; J3010; J7120

== ENCOUNTER → 2023-08-30 09:17 | Outpatient (BNV) | payer OTHER, SELFPAY | PROVIDERS: Admitting Provider Surgery; PCP Internal Medicine; Visit Provider Internal Medicine Cardiovascular Disease | DX: Z01.818 Encounter for other preprocedural examination (principal); E66.9 Obesity, unspecified | CPT/HCPCS: 93010 ==

== ENCOUNTER → 2023-08-30 09:17 | Outpatient (BNV) | payer OTHER, SELFPAY | PROVIDERS: Admitting Provider Surgery; PCP Internal Medicine; Visit Provider Surgery | DX: E66.09 Other obesity due to excess calories (principal); Z68.35 Body mass index [BMI] 35.0-35.9, adult; Z90.3 Acquired absence of stomach [part of]; Z98.84 Bariatric surgery status | CPT/HCPCS: 43281; 43775; 99024 ==

== ENCOUNTER 2023-09-07 13:43 | Outpatient (AMB) | payer OTHER, SELFPAY ==
--- NOTE | 2023-09-07 14:22 | MHC.OFFVISWM ---
Intake VS Expanded 09/07/23 14:31 BP 115/64 Blood Pressure Location Rt brachial Blood Pressure Position Sitting Pulse 96 Pulse Source Pulse Oximeter Temp 97.5 F Temperature Source Temporal Artery Scan Pulse Oximetry 96 Oxygen Delivery Method Room Air Height 5 ft 3 in Weight 198 lb 6.4 oz BMI 35.1 Body Fat % 42.7 Body Fat Mass 84.6 Fat Free Mass 113.6 Visceral Fat Rating 11.0 Body Water % 40.8 Body Water Mass 81.0 Muscle Mass/Score 107.8 Basal Metabolic Rate/Score 1,577 Intake Visit Reasons: (OV) PO LSG 08/30/23 Allergies NSAIDS (Non-Steroidal Anti-Inflamma Adverse Reaction (Severe, Verified 09/07/23 14:33) intestinal upset HPI HPI Comments History of Present Illness Details Patient is a pleasant 53-year-old female who underwent revision of her previous gastric bypass with esophagogastric duodenoscopy, hiatal hernia repair and sleeve gastrectomy performed on 08/30/2023. She reports that she is tolerating 3 celebrate shakes, 1 scoop each and approximately 32 oz of fluids total. She is moved her bowels and has no significant complaints. Of note, she did smell of cigarette smoke but states that the person who drove her to the appointment today was smoking in the car. She reports she has not smoked herself, we discussed exposure to secondhand smoke and she states that she will discuss that with the person who drove her. She denied any exposure to secondhand smoke at home as she states her nephew goes outside to smoke. Reports approximately 50-60 mL of serous fluid from the collection bulb daily [facility] Medical History PTSD (post-traumatic stress disorder) Anxiety and depression Hypothyroid Diabetes Asthma COPD (chronic obstructive pulmonary disease) DJD (degenerative joint disease) Sleep apnea treated with continuous positive airway pressure (CPAP) Sudden adrenal gland insufficiency Surgical History History of incisional hernia repair History of thyroidectomy History of dental surgery Hx of tonsillectomy Hx of arthroscopic knee surgery Hx of spinal surgery Hx of spinal fusion Hx of gastric bypass Hx of endoscopy Hx of colonoscopy Family History Mother Cancer Anemia Dumping syndrome Father No problems noted. Sister Cancer Daughter Morbid obesity Chronic mental illness Daughter Chronic mental illness Daughter Chronic mental illness Daughter Chronic mental illness Son Chronic mental illness Social History Household Members: Family Housing: House Are you a primary nanny caregiver to a significant other at home: Yes Do you presently have visiting nurse or other home services: Yes (electric bath attendant) Alcohol intake: former Patient Tobacco Use Status: Former Tobacco user Quit Date: 07/2023 Tobacco use type: Cigarette Second Hand Smoke Exposure: No service: No Physical Exam Vital Signs: Last Vital Signs Temp 97.5 F 09/07/23 14:31 Pulse 96 09/07/23 14:31 BP 115/64 09/07/23 14:31 Pulse Ox 96 09/07/23 14:31 Oxygen Delivery Method Room Air 09/07/23 14:31 BMI result Body Mass Index 35.1 GI Other: Proximally 40 mL within the collection bulb of serous fluid Inspection: Yes incision (Incision, clean dry and intact. Mild bruising.) Assessment & Plan Assessment & Plan (1) Status post sleeve gastrectomy: Code(s): Z90.3 - Acquired absence of stomach [part of] Plan: POD 8 s/p revision of previous gastric bypass, hiatal hernia repair and LSG on 08/30/[address] Reyes Weight loss prior to surgery was 33.4 pounds or 14.1 % TBWL. Original weight on 08/10/2021 was 235.8 pounds and op weight was 202.4 pounds. Be sure to text Dr Reyes exactly 1 week after surgery your weight from your home scale so he can adjust your meal plan. Continue meal plan until f/u w Erica in 1 week May shower, no submersion in bath for another week Continue abdominal binder with activity and exercise for the next 2 weeks. Exercise prior to surgery was stationary bike, may resume No abdominal exercises for 6 weeks post operatively Will be emailed link to post op video for review Reminded of the pace of drinking, 2 mL per minute, 1 oz/15 min. She will continue to monitor drain output per 24 hours. Coding Level of Care Code Global (69028) Diagnoses Status post sleeve gastrectomy Z90.3
[2023-09-07 14:31] VITALS: BP 115/64; PULSE 96; TEMP 36.4; O2SAT 96; BMI 35.1
== END 2023-09-07 15:59 | disposition home or self-care (01) ==
PROVIDERS: PCP Internal Medicine; Visit Provider Physician Assistant Surgical
DX: E66.9 Obesity, unspecified (principal); Z68.35 Body mass index [BMI] 35.0-35.9, adult; Z90.3 Acquired absence of stomach [part of]; Z98.84 Bariatric surgery status
CPT/HCPCS: 99024

== ENCOUNTER → 2023-09-07 13:43 | Outpatient (BNVA) | payer OTHER, SELFPAY | PROVIDERS: PCP Internal Medicine; Visit Provider Physician Assistant Surgical | DX: Z98.84 Bariatric surgery status (principal); Z90.3 Acquired absence of stomach [part of] | CPT/HCPCS: 99212 ==

== ENCOUNTER 2023-09-12 10:08 | Outpatient (AMB) | payer OTHER, SELFPAY ==
--- NOTE | 2023-09-12 10:09 | MHC.OFFVISWM ---
Intake VS Expanded 09/12/23 10:15 BP 116/59 L Blood Pressure Location Rt brachial Blood Pressure Position Sitting Pulse 95 Pulse Source Pulse Oximeter Temp 96.9 F Temperature Source Tympanic Pulse Oximetry 93 Oxygen Delivery Method Room Air Height 5 ft 3 in Weight 198 lb 6.4 oz BMI 35.1 Body Fat % 41.4 Body Fat Mass 82.0 Fat Free Mass 116.2 Visceral Fat Rating 11.0 Body Water % 41.7 Body Water Mass 82.6 Muscle Mass/Score 110.2 Basal Metabolic Rate/Score 1,605 Intake Visit Reasons: (OV) 13 Days PO LSG 08/30/23 Allergies NSAIDS (Non-Steroidal Anti-Inflamma Adverse Reaction (Severe, Verified 09/12/23 10:14) intestinal upset HPI HPI Comments History of Present Illness Details I asked her to come today as she reported an increase output through the drain and some pain at the drain site. She feels well otherwise and better than last week Tolerates the protein shakes well and feels more restrictions than before the surgery PFS Medical History (Updated 09/10/23 @ 00:03 by Hannah Hassan) BMI 35.0-35.9,adult Insomnia PTSD (post-traumatic stress disorder) Anxiety and depression Hypothyroid Diabetes Asthma COPD (chronic obstructive pulmonary disease) DJD (degenerative joint disease) Sleep apnea treated with continuous positive airway pressure (CPAP) Sudden adrenal gland insufficiency Surgical History (Updated 09/12/23 @ 10:18 by Dariana Munoz CMA) Hx of laparoscopic partial gastrectomy History of incisional hernia repair History of thyroidectomy History of dental surgery Hx of tonsillectomy Hx of arthroscopic knee surgery Hx of spinal surgery Hx of spinal fusion Hx of gastric bypass Hx of endoscopy Hx of colonoscopy Family History Mother Cancer Anemia Dumping syndrome Father No problems noted. 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 No infection at drain site.) Palpation (GI): Soft to palpation Extrem Right lower extremity: normal to inspection (no calf tenderness) Left lower extremity: normal to inspection (no calf tenderness) Assessment & Plan Assessment & Plan (1) Status post sleeve gastrectomy: Code(s): Z90.3 - Acquired absence of stomach [part of] Plan: 1. Check CBC, CMP and drain fluid amylase 2. UGI with gastrografin the next few days 3. If the above are normal, I will remove the drain 4. Patient is in agreement with the plan (2) S/P repair of paraesophageal hernia: Code(s): Z98.890 - Other specified postprocedural states; Z87.19 - Personal history of other diseases of the digestive system Plan: 1. Check CBC, CMP and drain fluid amylase 2. UGI with gastrografin the next few days 3. If the above are normal, I will remove the drain 4. Patient is in agreement with the plan Coding Level of Care Code Global (74575) Diagnoses Status post sleeve gastrectomy Z90.3 S/P repair of paraesophageal hernia Z98.890; Z87.19
[2023-09-12 10:15] VITALS: BP 116/59; PULSE 95; TEMP 36.1; O2SAT 93; BMI 35.1
== END 2023-09-12 11:23 | disposition home or self-care (01) ==
LOC: HO.HBS 10:08
PROVIDERS: PCP Internal Medicine; Visit Provider Surgery
DX: Z90.3 Acquired absence of stomach [part of] (principal); Z98.890 Other specified postprocedural states; Z87.19 Personal history of other diseases of the digestive system
CPT/HCPCS: 99024

== ENCOUNTER 2023-09-12 10:08 | Outpatient (REF) | payer OTHER, SELFPAY ==
[2023-09-12 10:53] LABS: MANUAL DIFF FLAG NO
[2023-09-12 11:08] LABS: Basophils Percent Auto 0.2 % (0-2); Eosinophils Absolute Auto 0.2 X10*3/uL (0.0-0.4); Eosinophils Percent Auto 1.3 % (0-4); Hematocrit 40.6 % (37.0-47.0); Hemoglobin 13.2 g/dl (12.0-16.0); Imm Gran Abs Auto 0.05 X10*3/uL (0.00-0.03); Imm Gran Pct Auto 0.3 % (0.0-0.4); Lymphocytes Absolute Auto 1.7 X10*3/uL (1.2-4.9); Lymphocytes Percent Auto 12.1 % (20-40); Mean Corpuscular HGB Conc 32.5 g/dl (31.0-35.0); Mean Corpuscular Hemoglobin 27.6 pg (27.0-33.0); Mean Corpuscular Volume 84.9 fL (80.0-98.0); Mean Platelet Volume 9.2 fL (9.4-12.3); Monocytes Absolute Auto 1.5 X10*3/uL (0.1-1.2); Monocytes Percent Auto 10.2 % (2-11); Neutrophils Absolute Auto 10.9 x10*3/uL (2.0-8.3); Neutrophils Percent Auto 75.9 % (45-73); Platelet Count 421 X10*3/uL (160-400); Red Blood Count 4.78 X10*6/uL (4.20-5.50); Red Cell Distribution Width 17.3 % (11.0-16.0); White Blood Count 14.4 X10*3/uL (4.8-10.8)
[2023-09-12 11:53] LABS: Alanine Aminotransferase 36 U/L (0-31); Albumin Level 3.6 g/dL (3.5-5.0); Alkaline Phosphatase 206 U/L (39-117); Anion Gap 14 (12-20); Aspartate Amino Transferase 16 U/L (5-31); Bilirubin Total 0.5 mg/dL (0.0-1.0); Blood Urea Nitrogen 10 mg/dL (9-16); Calcium 9.1 mg/dL (8.4-10.2); Carbon Dioxide 30 mmol/L (22-29); Chloride 99 mmol/L (96-108); Estimated Glomerular Filt Rate > 60; Glucose Random 88 mg/dL (60-115); Potassium 4.1 mmol/L (3.3-5.1); Sodium 139 mmol/L (135-145); Total Protein 6.9 g/dL (6.5-8.0)
== END 2023-09-12 10:09 | disposition home or self-care (01) ==
LOC: HO.LAB 10:08
PROVIDERS: PCP Internal Medicine; Visit Provider Surgery
DX: K90.9 Intestinal malabsorption, unspecified (principal); Z48.815 Encounter for surgical aftercare following surgery on the digestive system; Z87.19 Personal history of other diseases of the digestive system; Z98.84 Bariatric surgery status
CPT/HCPCS: 36415; 80053; 85025; 99212

== ENCOUNTER 2023-09-14 12:11 | Outpatient (REF) | payer OTHER, SELFPAY ==
[2023-09-19 08:56] LABS: Amylase Peritoneal Fluid 37
== END 2023-09-14 12:12 | disposition home or self-care (01) ==
LOC: HO.LNP 12:11
PROVIDERS: Physician Assistant; PCP Internal Medicine; Visit Provider Physician Assistant Surgical
DX: T81.89XA Other complications of procedures, not elsewhere classified, initial encounter (principal); K90.9 Intestinal malabsorption, unspecified; Z90.3 Acquired absence of stomach [part of]; Z98.890 Other specified postprocedural states; Z98.84 Bariatric surgery status; Z87.19 Personal history of other diseases of the digestive system
CPT/HCPCS: 82150

== ENCOUNTER 2023-09-16 08:38 | Outpatient (REF) | payer OTHER, SELFPAY ==
--- NOTE | ~2023-09-16 | FL_ITS ---
EXAMINATION: FLUOROSCOPY UPPER GI GASTROGRAFIN CLINICAL INFORMATION: Status post sleeve gastrectomy of gastric pouch. Evaluate for leak COMPARISON: Upper GI 10/2022 TECHNIQUE: Fluoroscopic upper GI examination was performed utilizing standard techniques with dilute Gastrografin Numerous spot images were obtained. FINDINGS: Single contrast images of the stomach demonstrated postoperative changes consistent with history of gastric bypass. No extravasation of the contrast is seen. The gastrojejunostomy is patent. Contrast enters the alimentary limb without difficulty. No hiatal hernia is seen. No gastroesophageal reflux is seen. There are [address] in place. FLUOROSCOPY TIME: 5 minutes 50 seconds Number of Spot Images: 4 Number of Cine: 9 DOSE AREA PRODUCT: [id number] uGy-m2 (microgray-meter squared) FL/FL upper GI w gastrografin IMPRESSION: 1. Status post sleeve gastrectomy of gastric pouch. No evidence of leak This procedure was performed by Brock Thomas PA-C, and supervised by Dr. Overton
== END 2023-09-16 08:39 | disposition home or self-care (01) ==
LOC: HO.XRAY 08:38
PROVIDERS: PCP Internal Medicine; Visit Provider Surgery
DX: K90.9 Intestinal malabsorption, unspecified (principal); Z98.84 Bariatric surgery status; Z90.3 Acquired absence of stomach [part of]; Z87.19 Personal history of other diseases of the digestive system
CPT/HCPCS: 74240; 99212

== ENCOUNTER → 2023-09-16 08:38 | Outpatient (BNV) | payer OTHER, SELFPAY | PROVIDERS: PCP Internal Medicine; Visit Provider Radiology Diagnostic Radiology | DX: Z98.84 Bariatric surgery status (principal) | CPT/HCPCS: 74240 ==

== ENCOUNTER 2023-09-16 09:15 | Outpatient (AMB) | payer OTHER, SELFPAY ==
--- NOTE | 2023-09-16 09:21 | MHC.OFFVISWM ---
Intake VS Expanded 09/16/23 09:29 BP 114/61 Blood Pressure Location Rt brachial Blood Pressure Position Sitting Pulse 83 Pulse Source Pulse Oximeter Temp 96.1 F L Temperature Source Tympanic Pulse Oximetry 93 Oxygen Delivery Method Room Air Height 5 ft 3 in Weight 199 lb 3.2 oz BMI 35.3 Body Fat % 42.4 Body Fat Mass 84.4 Fat Free Mass 114.6 Visceral Fat Rating 11.0 Body Water % 41.0 Body Water Mass 81.6 Muscle Mass/Score 109.0 Basal Metabolic Rate/Score 1,591 Intake Visit Reasons: (OV) PO LSG 08/30/23 Allergies NSAIDS (Non-Steroidal Anti-Inflamma Adverse Reaction (Severe, Verified 09/16/23 09:37) intestinal upset HPI HPI Comments History of Present Illness Details 53 yo woman s/p revision of previious GBP on 08/30/23. Pt had been having light yellow drainage from SAVANNA drain since surgery- drain pulled out inadvertently yesterday. Had been large amounts over 100 cc per day and [address] Jin ordered amylase from drain and UGI. Amylase level still pending. UGI done this am. No nausea, emesis, abd pain or reflux. Tolerating about 32 - 35 cc total fluids per day. Other liquids are water, diet Propel or Crystal Light. 10am - 4:1 shake 1 scoop 8 oz UAM 2pm - same shake 6pm - same shake - not able to finish it due to feeling full - will finish it by the end of the day. [facility] Medical History (Updated 09/13/23 @ 14:39 by Erica Waite PA-C) BMI 35.0-35.9,adult Insomnia PTSD (post-traumatic stress disorder) Anxiety and depression Hypothyroid Diabetes Asthma COPD (chronic obstructive pulmonary disease) DJD (degenerative joint disease) Sleep apnea treated with continuous positive airway pressure (CPAP) Sudden adrenal gland insufficiency Surgical History Hx of laparoscopic partial gastrectomy History of incisional hernia repair History of thyroidectomy History of dental surgery Hx of tonsillectomy Hx of arthroscopic knee surgery Hx of spinal surgery Hx of spinal fusion Hx of gastric bypass Hx of endoscopy Hx of colonoscopy Family History Mother Cancer Anemia Dumping syndrome Father No problems noted. 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 drain site with yellowish discharge, no erythema ), Yes Abdominal panniculus present and Yes obesity Palpation (GI): Soft to palpation, nontender and no guarding Assessment & Plan Assessment & Plan (1) S/P repair of paraesophageal hernia: Code(s): Z98.890 - Other specified postprocedural states; Z87.19 - Personal history of other diseases of the digestive system Plan: Pt is 3 weeks s/p revision ogf GBP- not tolerated fluids well. told her she MUSt get in all 3 shakes per day and one having 2 scoops 4:1 powder. Minimum of 40 550 - ounces fluid per day. Will check for official read on UGI today - reviewed by DR Jin and looks normal. Amylase from peritoneal fluid still pending Antibiotic cream bid to drain site to prevent any infection. Follow all instructions by Dr Jin, return ofro office visit with me in 2 weeks. (2) Status post sleeve gastrectomy: Code(s): Z90.3 - Acquired absence of stomach [part of] Plan: see above Coding Level of Care Code Global (40235) Diagnoses S/P repair of paraesophageal hernia Z98.890; Z87.19 Status post sleeve gastrectomy Z90.3
[2023-09-16 09:29] VITALS: BP 114/61; PULSE 83; TEMP 35.6; O2SAT 93; BMI 35.3
== END 2023-09-16 10:05 | disposition home or self-care (01) ==
PROVIDERS: PCP Internal Medicine; Visit Provider Physician Assistant
DX: Z98.890 Other specified postprocedural states (principal); Z87.19 Personal history of other diseases of the digestive system; Z90.3 Acquired absence of stomach [part of]
CPT/HCPCS: 99024

== ENCOUNTER 2023-09-20 10:34 | Outpatient (AMB) | payer OTHER, SELFPAY ==
--- NOTE | 2023-09-20 15:14 | MHC.WMTHER ---
Intake Intake Visit Reasons: VIDEO PO LSG 08/30/23 Allergies NSAIDS (Non-Steroidal Anti-Inflamma Adverse Reaction (Severe, Verified 09/16/23 09:37) intestinal upset [facility] Medical History (Updated 09/13/23 @ 14:39 by Erica Waite PA-C) BMI 35.0-35.9,adult Insomnia PTSD (post-traumatic stress disorder) Anxiety and depression Hypothyroid Diabetes Asthma COPD (chronic obstructive pulmonary disease) DJD (degenerative joint disease) Sleep apnea treated with continuous positive airway pressure (CPAP) Sudden adrenal gland insufficiency Surgical History Hx of laparoscopic partial gastrectomy History of incisional hernia repair History of thyroidectomy History of dental surgery Hx of tonsillectomy Hx of arthroscopic knee surgery Hx of spinal surgery Hx of spinal fusion Hx of gastric bypass Hx of endoscopy Hx of colonoscopy Family History Mother Cancer Anemia Dumping syndrome Father No problems noted. Sister Cancer Daughter Morbid obesity Chronic mental illness Daughter Chronic mental illness Daughter Chronic mental illness Daughter Chronic mental illness Son Chronic mental illness Social History Household Members: Family Housing: House Are you a primary occasional caregiver to a significant other at home: Yes Do you presently have visiting nurse or other home services: Yes (career services director) Alcohol intake: former Patient Tobacco Use Status: Former Tobacco user Quit Date: 07/2023 Tobacco use type: Cigarette Second Hand Smoke Exposure: No service: No Behavioral Health Assessment Weight Management Therapy Therapy Notes Details Pt had revisions surgery on the . She stated that she has been reminded multiple times how complicated it was. Struggling to get her nutritional requirements however trying her best. Has numerous family stressors and a full house of extended family living with her. Is looking for ways to help her 14 year old who is over 400lbs, referral was put in by sand control worker to [facility] last October. Pt is concerned for her, her sister, childrens father. Assessment & Plan Assessment & Plan (1) Posttraumatic stress disorder: Code(s): F43.10 - Post-traumatic stress disorder, unspecified (2) Morbid obesity: Code(s): E66.01 - Morbid (severe) obesity due to excess calories Plan Pt had surgery earlier this month. Stated today she missed an appointment with her therapist from [facility] so she received notice. Needs to reschedule. She has numerous family stressors and othe socio-economic barriers. Telehealth Telehealth Location of provider rendering services: other Location of patient: address on file Patient Identification confirmed using: Name, : Yes Telehealth method: video Patient verbally consented to treatment: Yes Patient verbally consented to billing insurance company: Yes Patient informed of any privacy concerns related to visit: Yes Minutes spent on Phone/Video with Pt.: 40 Coding Level of Care Code Tele Psytx 45 mins ([id number]) Diagnoses Posttraumatic stress disorder F43.10 Morbid obesity E66.01 Time Spent (min) 40
== END 2023-09-20 15:14 | disposition home or self-care (01) ==
PROVIDERS: PCP Internal Medicine; Visit Provider Counselor Mental Health
DX: F43.10 Post-traumatic stress disorder, unspecified (principal); E66.01 Morbid (severe) obesity due to excess calories
CPT/HCPCS: 90834

== ENCOUNTER → 2023-09-20 10:34 | Outpatient (BNVA) | payer OTHER, SELFPAY | PROVIDERS: PCP Internal Medicine; Visit Provider Counselor Mental Health ==

== ENCOUNTER 2023-10-04 11:44 | Outpatient (AMB) | payer OTHER, SELFPAY ==
--- NOTE | 2023-10-05 10:01 | MHC.WMTHER ---
Intake Intake Visit Reasons: VIDEO PO LSG 08/30/23 Allergies NSAIDS (Non-Steroidal Anti-Inflamma Adverse Reaction (Severe, Verified 09/16/23 09:37) intestinal upset [facility] Medical History (Updated 09/13/23 @ 14:39 by Erica Waite PA-C) BMI 35.0-35.9,adult Insomnia PTSD (post-traumatic stress disorder) Anxiety and depression Hypothyroid Diabetes Asthma COPD (chronic obstructive pulmonary disease) DJD (degenerative joint disease) Sleep apnea treated with continuous positive airway pressure (CPAP) Sudden adrenal gland insufficiency Surgical History Hx of laparoscopic partial gastrectomy History of incisional hernia repair History of thyroidectomy History of dental surgery Hx of tonsillectomy Hx of arthroscopic knee surgery Hx of spinal surgery Hx of spinal fusion Hx of gastric bypass Hx of endoscopy Hx of colonoscopy Family History Mother Cancer Anemia Dumping syndrome Father No problems noted. Sister Cancer Daughter Morbid obesity Chronic mental illness Daughter Chronic mental illness Daughter Chronic mental illness Daughter Chronic mental illness Son Chronic mental illness Social History Household Members: Family Housing: House Are you a primary district manager primary care sales to a significant other at home: Yes Do you presently have visiting nurse or other home services: Yes (kiln stoker) Alcohol intake: former Patient Tobacco Use Status: Former Tobacco user Quit Date: 07/2023 Tobacco use type: Cigarette Second Hand Smoke Exposure: No service: No Behavioral Health Assessment Weight Management Therapy Therapy Notes Details Pt had revision weight loss surgery on the . She reported doing well with her health, loosing weight, is not able to exercise as much as she would like due to upcoming miniscus surgery. Continues to struggle with housing and family issues at home. Her sister and her kids have come to live with her. She is often faced with smoking in the house and unhealthy eating habits around her. Assessment & Plan Assessment & Plan (1) Posttraumatic stress disorder: Code(s): F43.10 - Post-traumatic stress disorder, unspecified (2) Morbid obesity: Code(s): E66.01 - Morbid (severe) obesity due to excess calories Plan Pt had surgery earlier this month. Stated today she missed an appointment with her therapist from [facility] so she received notice. Needs to reschedule. She has numerous family stressors and othe socio-economic barriers. Telehealth Telehealth Location of provider rendering services: other Location of patient: address on file Patient Identification confirmed using: Name, : Yes Telehealth method: voice only Patient verbally consented to treatment: Yes Patient verbally consented to billing insurance company: Yes Patient informed of any privacy concerns related to visit: Yes Minutes spent on Phone/Video with Pt.: 40 Coding Level of Care Code Tele Psytx 45 mins ([id number]) Diagnoses Posttraumatic stress disorder F43.10 Morbid obesity E66.01 Time Spent (min) 40
== END 2023-10-05 09:43 | disposition home or self-care (01) ==
LOC: HO.HBST 11:44
PROVIDERS: PCP Internal Medicine; Visit Provider Counselor Mental Health
DX: F43.10 Post-traumatic stress disorder, unspecified (principal); E66.01 Morbid (severe) obesity due to excess calories
CPT/HCPCS: 90834

== ENCOUNTER → 2023-10-04 11:44 | Outpatient (BNVA) | payer OTHER, SELFPAY | PROVIDERS: PCP Internal Medicine; Visit Provider Counselor Mental Health ==

== ENCOUNTER 2023-10-24 14:35 | Outpatient (AMB) | payer OTHER, SELFPAY ==
--- NOTE | 2023-10-24 14:31 | MHC.WMTHER ---
Intake Intake Visit Reasons: VIDEO PO LSG 08/30/23 Allergies NSAIDS (Non-Steroidal Anti-Inflamma Adverse Reaction (Severe, Verified 09/16/23 09:37) intestinal upset [facility] Medical History (Updated 09/13/23 @ 14:39 by Erica Waite PA-C) BMI 35.0-35.9,adult Insomnia PTSD (post-traumatic stress disorder) Anxiety and depression Hypothyroid Diabetes Asthma COPD (chronic obstructive pulmonary disease) DJD (degenerative joint disease) Sleep apnea treated with continuous positive airway pressure (CPAP) Sudden adrenal gland insufficiency Surgical History Hx of laparoscopic partial gastrectomy History of incisional hernia repair History of thyroidectomy History of dental surgery Hx of tonsillectomy Hx of arthroscopic knee surgery Hx of spinal surgery Hx of spinal fusion Hx of gastric bypass Hx of endoscopy Hx of colonoscopy Family History Mother Cancer Anemia Dumping syndrome Father No problems noted. 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 She is working on school assignments and ongoing family ehalth and socio economic issues. Pt had revision weight loss surgery on the . She reported doing well with her health, loosing weight, is not able to exercise as much as she would like due to upcoming miniscus surgery. Continues to struggle with housing and family issues at home. Her sister and her kids have come to live with her. She is often faced with smoking in the house and unhealthy eating habits around her. Assessment & Plan Assessment & Plan (1) Posttraumatic stress disorder: Code(s): F43.10 - Post-traumatic stress disorder, unspecified (2) Morbid obesity: Code(s): E66.01 - Morbid (severe) obesity due to excess calories Plan Pt had weight loss revision surgery several weeks ago and also knee surgery last week. She has a long history of mental health treatment and various socio-economic difficulties. She has family living with her who are also struggling to get stable. Pt is in school and juggling recovery and family. She appears stable emotionally and motivated. Telehealth Telehealth Location of provider rendering services: practice address Location of patient: address on file Patient Identification confirmed using: Name, : Yes Telehealth method: video Patient verbally consented to treatment: Yes Patient verbally consented to billing insurance company: Yes Patient informed of any privacy concerns related to visit: Yes Minutes spent on Phone/Video with Pt.: 25 Coding Level of Care Code Tele Psytx 30 mins ([id number]) Diagnoses Posttraumatic stress disorder F43.10 Morbid obesity E66.01 Time Spent (min) 25
== END 2023-10-24 14:41 | disposition home or self-care (01) ==
LOC: HO.HBST 14:35
PROVIDERS: PCP Internal Medicine; Visit Provider Counselor Mental Health
DX: F43.10 Post-traumatic stress disorder, unspecified (principal); E66.01 Morbid (severe) obesity due to excess calories
CPT/HCPCS: 90832

== ENCOUNTER → 2023-10-24 14:35 | Outpatient (BNVA) | payer OTHER, SELFPAY | PROVIDERS: PCP Internal Medicine; Visit Provider Counselor Mental Health ==

== ENCOUNTER 2023-10-31 10:52 | Outpatient (AMB) | payer OTHER, SELFPAY ==
--- NOTE | 2023-10-20 12:33 | A.OFFVIS_ITS ---
Intake Intake Visit Reasons: (OV) PO LSG 08/30/23 Allergies NSAIDS (Non-Steroidal Anti-Inflamma Adverse Reaction (Severe, Verified 09/16/23 09:37) intestinal upset HPI HPI Comments History of Present Illness Details 53 yo woman now 8 weeks (08/30/23) s/p rev tyson of previous GBP. Pt had drain placed at the time of surgery which fell out on 09/16/23. Meal plan per Dr Jin: Exercise: [facility] Medical History (Updated 09/13/23 @ 14:39 by Erica Waite PA-C) BMI 35.0-35.9,adult Insomnia PTSD (post-traumatic stress disorder) Anxiety and depression Hypothyroid Diabetes Asthma COPD (chronic obstructive pulmonary disease) DJD (degenerative joint disease) Sleep apnea treated with continuous positive airway pressure (CPAP) Sudden adrenal gland insufficiency Surgical History Hx of laparoscopic partial gastrectomy History of incisional hernia repair History of thyroidectomy History of dental surgery Hx of tonsillectomy Hx of arthroscopic knee surgery Hx of spinal surgery Hx of spinal fusion Hx of gastric bypass Hx of endoscopy Hx of colonoscopy Family History Mother Cancer Anemia Dumping syndrome Father No problems noted. Sister Cancer Daughter Morbid obesity Chronic mental illness Daughter Chronic mental illness Daughter Chronic mental illness Daughter Chronic mental illness Son Chronic mental illness Social History Household Members: Family Housing: House Are you a primary care management assistant to a significant other at home: Yes Do you presently have visiting nurse or other home services: Yes (emergency medical tech) Alcohol intake: former Patient Tobacco Use Status: Former Tobacco user Quit Date: 07/2023 Tobacco use type: Cigarette Second Hand Smoke Exposure: No service: No Assessment & Plan Assessment & Plan (1) Status post sleeve gastrectomy: Code(s): Z90.3 - Acquired absence of stomach [part of] Plan: 8 weeks s/p revision of GBP. (2) S/P gastric bypass: Comment: January 2006 at [facility] Code(s): Z98.84 - Bariatric surgery status (3) S/P repair of paraesophageal hernia: Code(s): Z98.890 - Other specified postprocedural states; Z87.19 - Personal history of other diseases of the digestive system Coding Diagnoses Status post sleeve gastrectomy Z90.3 S/P gastric bypass Z98.84 S/P repair of paraesophageal hernia Z98.890; Z87.19
--- NOTE | 2023-10-31 11:02 | A.OFFVIS_ITS ---
Intake VS Expanded 10/31/23 11:14 BP 131/72 Blood Pressure Location Rt brachial Blood Pressure Position Sitting Pulse 62 Pulse Source Pulse Oximeter Temp 97.1 F Temperature Source Temporal Artery Scan Pulse Oximetry 95 Oxygen Delivery Method Room Air Height 5 ft 3 in Weight 196 lb 3.2 oz BMI 34.8 Body Fat % 42.2 Body Fat Mass 82.6 Fat Free Mass 113.4 Visceral Fat Rating 11.0 Body Water % 41.2 Body Water Mass 80.6 Muscle Mass/Score 107.6 Basal Metabolic Rate/Score 1,571 Intake Visit Reasons: (OV) PO LSG 08/30/23 Allergies NSAIDS (Non-Steroidal Anti-Inflamma Adverse Reaction (Severe, Verified 10/31/23 11:08) intestinal upset Medication List - Last Reconciled 10/31/23 by Erica Waite PA-C albuterol sulfate 90 mcg/actuation 2 puffs inhalation Q4-6H PRN doxepin 150 mg PO BEDTIME vufpgkpesxo-dcvuegugi-kjbefoxd 200-62.5-25 mcg (Trelegy Ellipta) 1 ea inhalation DAILY hydroxyzine HCl 100 mg PO TID levocetirizine 5 mg PO DAILY levothyroxine 50 mcg PO DAILY lurasidone (Latuda) 3 mg PO DAILY nicotine (Nicoderm CQ) 1 patch transdermal DAILY olanzapine 10 mg PO BID Oxygen Home Use As directed pantoprazole 40 mg PO DAILY roflumilast (Daliresp) 500 mcg PO DAILY sucralfate 10 mL PO BID tizanidine 2 mg PO TID PRN HPI HPI Comments History of Present Illness Details 53 yo woman now 2 months 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 Finishing school over the next year. PT twice per week now. Orthopedic surgeon said she can use bike up 30 minutes bid. Started Bike- 30 minutes every other day for last 2 days. Meal plan per Dr Jin- weekly 11 am - 4:1, 1 scoop UAM 2 pm- 6 TBL kyrgyz yogurt 5pm- 3 forks chicken or fish and 3 forks vegetable cooked. 7 pm- 4:1 1sccop with 3 TBL yogurt (? un clear in text message) Smoking - states none, family smokes. Still can not chew due to no permanent dentures on uppers. [facility] Medical History (Updated 09/13/23 @ 14:39 by Erica Waite PA-C) BMI 35.0-35.9,adult Insomnia PTSD (post-traumatic stress disorder) Anxiety and depression Hypothyroid Diabetes Asthma COPD (chronic obstructive pulmonary disease) DJD (degenerative joint disease) Sleep apnea treated with continuous positive airway pressure (CPAP) Sudden adrenal gland insufficiency Surgical History (Updated 10/31/23 @ 11:09 by Candelaria Yip [facility]) Hx of meniscectomy of right knee Hx of laparoscopic partial gastrectomy History of incisional hernia repair History of thyroidectomy History of dental surgery Hx of tonsillectomy Hx of arthroscopic knee surgery Hx of spinal surgery Hx of spinal fusion Hx of gastric bypass Hx of endoscopy Hx of colonoscopy Family History (Reviewed 09/16/23 @ 09:37 by Dariana Munoz [facility]) Mother Cancer Anemia Dumping syndrome Father No problems noted. Sister Cancer Daughter Morbid obesity Chronic mental illness Daughter Chronic mental illness Daughter Chronic mental illness Daughter Chronic mental illness Son Chronic mental illness Social History (Reviewed 10/31/23 @ 11:09 by Candelaria Yip [facility]) Household Members: Family Housing: House Are you a primary inspector health care facilities to a significant other at home: Yes Do you presently have visiting nurse or other home services: Yes (long term) Alcohol intake: former Patient Tobacco Use Status: Former Tobacco user Quit Date: 07/2023 Tobacco use type: Cigarette Second Hand Smoke Exposure: No service: No Physical Exam Vital Signs: Last Vital Signs Temp 97.1 F 10/31/23 11:14 Pulse 62 10/31/23 11:14 BP 131/72 10/31/23 11:14 Pulse Ox 95 10/31/23 11:14 Oxygen Delivery Method Room Air 10/31/23 11:14 BMI result Body Mass Index 34.8 Assessment & Plan Assessment & Plan (1) Status post sleeve gastrectomy: Code(s): Z90.3 - Acquired absence of stomach [part of] Plan: Slow progress, has only lost 3 lbs this month. Will now be able to start regular biking. Biek - dialy for 30 minutes - use health tracker for monitor calories burned (bike doesn't have this feature). After 2 weeks, start bid 4 d/week. Meal plan - no changes made will contact Dr Jin for clarity on meal plan Will purchase bariatric MVI now and start daily. Next appt 4 weeks PA (2) S/P gastric bypass: Comment: January 2006 at [facility] Code(s): Z98.84 - Bariatric surgery status (3) S/P repair of paraesophageal hernia: Code(s): Z98.890 - Other specified postprocedural states; Z87.19 - Personal history of other diseases of the digestive system Plan see above Coding Level of Care Code Global (12722) Diagnoses Status post sleeve gastrectomy Z90.3 S/P gastric bypass Z98.84 S/P repair of paraesophageal hernia Z98.890; Z87.19
[2023-10-31 11:14] VITALS: BP 131/72; PULSE 62; TEMP 36.2; O2SAT 95; BMI 34.8
== END 2023-10-31 12:03 | disposition home or self-care (01) ==
PROVIDERS: PCP Internal Medicine; Visit Provider Physician Assistant
DX: Z90.3 Acquired absence of stomach [part of] (principal); Z98.84 Bariatric surgery status; Z98.890 Other specified postprocedural states; Z87.19 Personal history of other diseases of the digestive system
CPT/HCPCS: 99024

== ENCOUNTER → 2023-10-31 10:52 | Outpatient (BNVA) | payer OTHER, SELFPAY | PROVIDERS: PCP Internal Medicine; Visit Provider Physician Assistant | DX: Z90.3 Acquired absence of stomach [part of] (principal); Z98.84 Bariatric surgery status; Z98.890 Other specified postprocedural states; Z87.19 Personal history of other diseases of the digestive system | CPT/HCPCS: 99212 ==

== ENCOUNTER 2023-12-19 12:41 | Outpatient (AMB) | payer OTHER, SELFPAY ==
--- NOTE | 2023-12-19 12:36 | MHC.OFFVISWM ---
VS Expanded 12/19/23 12:43 Height 5 ft 3 in Weight 194 lb BMI 34.4 Intake Visit Reasons: (TELEPHONE) PO LSG 08/30/23 Allergies NSAIDS (Non-Steroidal Anti-Inflamma Adverse Reaction (Severe, Verified 10/31/23 11:08) intestinal upset Medication List - Last Reconciled 12/19/23 by FARIDA Berman albuterol sulfate 90 mcg/actuation 2 puffs inhalation Q4-6H PRN doxepin 150 mg PO BEDTIME szfzplrgama-vwngpdwlu-dkwnvvco 200-62.5-25 mcg (Trelegy Ellipta) 1 ea inhalation DAILY hydroxyzine HCl 100 mg PO TID levocetirizine 5 mg PO DAILY levothyroxine 50 mcg PO DAILY lurasidone (Latuda) 3 mg PO DAILY nicotine (Nicoderm CQ) 1 patch transdermal DAILY olanzapine 10 mg PO BID Oxygen Home Use As directed pantoprazole 40 mg PO DAILY roflumilast (Daliresp) 500 mcg PO DAILY sucralfate 10 mL PO BID tizanidine 2 mg PO TID PRN HPI Comments Details: This?is a?53?yo female who is s/p revison LSG of bypass with hiatal hernia repair on?08/30/2023. Presents for 3 month post op visit. Weight at last visit on 10/31/2023 was 196.2 pounds with a BMI of 34.8, weight today is 194 pounds, representing a 2.2 pound weight loss with a BMI today of 34.4.? Pt met with forestry instructor due to hypoglycemia. As low as 50 with lightheadedness, confusion, nausea. Has introduced some carbohydrates into her diet and sugars have been better. Occasional episodes of dumping which also happened prior to this most recent operation; this happened after she reintroduced real food, seeing GI. Still does not have top teeth. Present meal plan includes: 11 am - 4:1, 1 scoop UAM 2 pm- 4:1, 1 scoop (but has but missing due to lack of hunger) 5pm- 3 forks chicken or fish and 3 forks vegetable 7 pm- single serve cup of Kazakh has added 1/4c quinoa or brown rice at the evening meal taking a MVI (ordered online) Exercise routine includes: bike, elliptical or Nolan but per forestry instructor sugar has to be 120 before she starts PFSH Medical History (Updated 09/13/23 @ 14:39 by Erica Waite PA-C) BMI 35.0-35.9,adult Insomnia PTSD (post-traumatic stress disorder) Anxiety and depression Hypothyroid Diabetes Asthma COPD (chronic obstructive pulmonary disease) DJD (degenerative joint disease) Sleep apnea treated with continuous positive airway pressure (CPAP) Sudden adrenal gland insufficiency Surgical History (Updated 10/31/23 @ 11:09 by Candelaria Yip [facility]) Hx of meniscectomy of right knee Hx of laparoscopic partial gastrectomy History of incisional hernia repair History of thyroidectomy History of dental surgery Hx of tonsillectomy Hx of arthroscopic knee surgery Hx of spinal surgery Hx of spinal fusion Hx of gastric bypass Hx of endoscopy Hx of colonoscopy Family History Mother Cancer Anemia Dumping syndrome Father No problems noted. 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) Alcohol intake: former Patient Tobacco Use Status: Former Tobacco user Quit Date: 07/2023 Tobacco use type: Cigarette Second Hand Smoke Exposure: No service: No Telehealth Telehealth Telehealth Platform: Telephone Location of provider rendering services: other Location of patient: address on file Patient Identification confirmed using: Name, : Yes Telehealth method: voice only Patient verbally consented to treatment: Yes Patient verbally consented to billing insurance company: Yes Patient informed of any privacy concerns related to visit: Yes Minutes spent on Phone/Video with Pt.: 18 Assessment & Plan Assessment & Plan (1) Status post sleeve gastrectomy: Code(s): Z90.3 - Acquired absence of stomach [part of] Category: Surgical (2) Obesity: Code(s): E66.9 - Obesity, unspecified Category: Medical Qualifiers: Obesity type: due to excess calories Obesity classification: adult class 2 (BMI 35 - 39.9) Serious obesity comorbidity presence: with serious comorbidity Body mass index: BMI 36.0-36.9 Qualified Code(s): E66.01 - Morbid (severe) obesity due to excess calories; Z68.36 - Body mass index [BMI] 36.0-36.9, adult (3) S/P gastric bypass: Comment: January 2006 at [facility] Code(s): Z98.84 - Bariatric surgery status Category: Surgical Plan 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 Will place referral to diabetic veneer layer in endocrinology for help with hypoglycemia. Pt also scheduled to see GI. No major changes to meal plan today. RTC 6 weeks. Patient is obese and is not considered stable at this time. I spent a total of 30 minutes reviewing/updating records, examining the patient and counseling the patient on weight management as detailed above.
[2023-12-19 12:43] VITALS: BMI 34.4
== END 2023-12-19 13:03 | disposition home or self-care (01) ==
LOC: HO.HBS 12:41
PROVIDERS: PCP Internal Medicine; Visit Provider Physician Assistant Surgical
DX: E66.09 Other obesity due to excess calories (principal); Z68.34 Body mass index [BMI] 34.0-34.9, adult; Z90.3 Acquired absence of stomach [part of]; Z98.84 Bariatric surgery status
CPT/HCPCS: 99442

== ENCOUNTER → 2023-12-19 12:41 | Outpatient (BNVA) | payer OTHER, SELFPAY | PROVIDERS: PCP Internal Medicine; Visit Provider Physician Assistant Surgical ==

== ENCOUNTER 2024-02-02 11:00 | Outpatient (AMB) | payer OTHER, SELFPAY ==
--- NOTE | 2024-02-02 11:02 | MHC.OFFVISWM ---
VS Expanded 02/02/24 11:09 Height 5 ft 3 in Weight 196 lb BMI 34.7 Intake Visit Reasons: TELEPHONE PO LSG 08/30/23 Allergies NSAIDS (Non-Steroidal Anti-Inflamma Adverse Reaction (Severe, Verified 10/31/23 11:08) intestinal upset Medication List - Last Reconciled 02/02/24 by FARIDA Berman albuterol sulfate 90 mcg/actuation 2 puffs inhalation Q4-6H PRN doxepin 150 mg PO BEDTIME gmcyugktyco-zdmupatfu-oesdbgeg 200-62.5-25 mcg (Trelegy Ellipta) 1 ea inhalation DAILY hydroxyzine HCl 100 mg PO TID levocetirizine 5 mg PO DAILY levothyroxine 50 mcg PO DAILY lurasidone (Latuda) 3 mg PO DAILY nicotine (Nicoderm CQ) 1 patch transdermal DAILY olanzapine 10 mg PO BID Oxygen Home Use As directed pantoprazole 40 mg PO DAILY roflumilast (Daliresp) 500 mcg PO DAILY sucralfate 10 mL PO BID tizanidine 2 mg PO TID PRN HPI Comments Details: This?is a?53?yo female who is s/p revison LSG of bypass with hiatal hernia repair on?08/30/2023. Presents for 5 month post op visit. Weight at last visit on 12/19/2023 was 194 pounds with a BMI of 34.4, weight today is 194 pounds, representing a 2.2 pound weight loss with a BMI today of 34.4.? Pt following with inoculator due to hypoglycemia. Pt reports she did change her meal plan which helped improve her blood sugars. She avoids pasta, rice, has occasional mashed potato. Previously- As low as 50 with lightheadedness, confusion, nausea. Has introduced some carbohydrates into her diet and sugars have been better. Occasional episodes of dumping which also happened prior to this most recent operation; this happened after she reintroduced real food, seeing GI. Still does not have top teeth. Present meal plan includes: 11 am - 4:1, 1 scoop UAM 2 pm- 4:1, 1 scoop (but has but missing due to lack of hunger) 5pm- 3 forks chicken or fish and 3 forks vegetable 7 pm- single serve cup of [place] pt has been having 2 eggs or oatmeal for breakfast lunch- 2 scoop Celebrate tobyke has a malian yogurt in afternoon dinner is protein and vegetable; has added 1/4c quinoa or brown rice at the evening meal taking a MVI (ordered online) Exercise routine includes: bike, elliptical or Nolan but per inoculator sugar has to be 120 before she starts able to walk better after injection and knee brace, was limiting her mobility [facility] Medical History (Updated 09/13/23 @ 14:39 by Erica Waite PA-C) BMI 35.0-35.9,adult Insomnia PTSD (post-traumatic stress disorder) Anxiety and depression Hypothyroid Diabetes Asthma COPD (chronic obstructive pulmonary disease) DJD (degenerative joint disease) Sleep apnea treated with continuous positive airway pressure (CPAP) Sudden adrenal gland insufficiency Surgical History (Updated 10/31/23 @ 11:09 by Candelaria Yip [facility]) Hx of meniscectomy of right knee Hx of laparoscopic partial gastrectomy History of incisional hernia repair History of thyroidectomy History of dental surgery Hx of tonsillectomy Hx of arthroscopic knee surgery Hx of spinal surgery Hx of spinal fusion Hx of gastric bypass Hx of endoscopy Hx of colonoscopy Family History Mother Cancer Anemia Dumping syndrome Father No problems noted. Sister Cancer Daughter Morbid obesity Chronic mental illness Daughter Chronic mental illness Daughter Chronic mental illness Daughter Chronic mental illness Son Chronic mental illness Social History Household Members: Family Housing: House Are you a primary pediatric critical care nurse to a significant other at home: Yes Do you presently have visiting nurse or other home services: Yes (registered occupational therapist) Alcohol intake: former Patient Tobacco Use Status: Former Tobacco user Tobacco use type: Cigarette Second Hand Smoke Exposure: No service: No Telehealth Telehealth Telehealth Platform: Telephone Location of provider rendering services: practice address Location of patient: address on file Patient Identification confirmed using: Name, : Yes Telehealth method: voice only Patient verbally consented to treatment: Yes Patient verbally consented to billing insurance company: Yes Patient informed of any privacy concerns related to visit: Yes Minutes spent on Phone/Video with Pt.: 15 Assessment & Plan Assessment & Plan (1) Status post sleeve gastrectomy: Code(s): Z90.3 - Acquired absence of stomach [part of] Category: Surgical (2) S/P repair of paraesophageal hernia: Code(s): Z98.890 - Other specified postprocedural states; Z87.19 - Personal history of other diseases of the digestive system Category: Surgical (3) Obesity: Code(s): E66.9 - Obesity, unspecified Category: Medical Qualifiers: Obesity type: due to excess calories Obesity classification: adult class 2 (BMI 35 - 39.9) Serious obesity comorbidity presence: with serious comorbidity Body mass index: BMI 36.0-36.9 Qualified Code(s): E66.01 - Morbid (severe) obesity due to excess calories; Z68.36 - Body mass index [BMI] 36.0-36.9, adult (4) Diabetes mellitus: Code(s): E11.9 - Type 2 diabetes mellitus without complications Category: Medical (5) S/P gastric bypass: Comment: January 2006 at [facility] Code(s): Z98.84 - Bariatric surgery status Category: Surgical Plan Pt reports she was not contacted by [facility] endo for diabetic pulp maker appt- spoke to their office today and they will reach out to pt to schedule. Her priority right now is making sure she avoids episodes of hypoglycemia. Discussed protein goals, pt seems to be getting less protein intake than what she currently needs (80g). She is frustrated by difficulty with exercise, planning to try to walk and bike more now that she has brace and injection. RTC 6 weeks for 6 month visit, will order labs at that time. Patient is obese and is not considered stable at this time. I spent a total of 30 minutes reviewing/updating records, examining the patient and counseling the patient on weight management as detailed above.
[2024-02-02 11:09] VITALS: BMI 34.7
== END 2024-02-02 11:30 | disposition home or self-care (01) ==
LOC: HO.HBS 13:32
PROVIDERS: PCP Internal Medicine; Visit Provider Physician Assistant Surgical
DX: E66.09 Other obesity due to excess calories (principal); Z68.34 Body mass index [BMI] 34.0-34.9, adult; Z90.3 Acquired absence of stomach [part of]; Z98.84 Bariatric surgery status
CPT/HCPCS: 99442

== ENCOUNTER → 2024-02-02 11:00 | Outpatient (BNVA) | payer OTHER, SELFPAY | PROVIDERS: PCP Internal Medicine; Visit Provider Physician Assistant Surgical | DX: Z90.3 Acquired absence of stomach [part of] (principal); Z98.890 Other specified postprocedural states; Z87.19 Personal history of other diseases of the digestive system; E66.01 Morbid (severe) obesity due to excess calories; Z68.36 Body mass index [BMI] 36.0-36.9, adult; E11.9 Type 2 diabetes mellitus without complications; Z98.84 Bariatric surgery status ==